=== PATIENT | female | born 1985 | race Caucasian/White ===

== ENCOUNTER 2025-03-04 19:54 | Emergency (ER) | payer BC, SELFPAY ==
--- OUTSIDE RECORDS SUMMARY | 2025-03-04 18:00 | XMS_ITS | Encounter Summary ---
Author Organization [facility] Address [address] [place] [address]. [place] [address] Care Team Providers Care Continuous Improvement Coach Name Role Phone Corinna Rodriges MD Primary Care Provider Corinna Rodriges MD Unavailable [phone] Arelis Vega PA-C Unavailable [phone] Corinna Rodriges MD Unavailable [phone] Loly Calderon PA-C Unavailable [phone] Galo Gill MD Unavailable Unavailab Robe Marshall MD Unavailable Loly Calderon PA-C Unavailable [phone] Reason for Visit * Reason Comments UTI 39 yo F presents wit h the following complaint unable to empty bladder lower back pain onset 3 hrs ago feels like a possible kidney stone also complaining of nausea and sweating Encounter Details Date Type Department Care Team (Late st Contact Info) Description 03/04/2025 6:00 PM CDT Office Visit [facility] [address] [place] [address] Beatrice Pinon, PORCELAIN ENAMEL LABORER ELECTROTYPER [address] [place] [address] Dysuria (Primary Dx) Social History Tobacco Use [...] re latives? Twice a week 06/27/2024 Attends Orthodoxy Services Not on file 06/27 Active Member of Clubs or Organizations Not on f ile 06/27/2024 Attends Club or Organization Meetings Not on karey e 06/27/2024 Marital Status Not on file 06/27/2024 PHQ-2 Answer Date Recorded PHQ-2 Score 0 06/27/2024 [facility] - Occupational Stress Questionnaire Answer Date Recorded [...] exercise at this level? 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 Recommend follow up in [facility]. documented in this encounter Progress Notes * [...] Negative Ketones Urine Negative Negative mg/dL Specific [place] Urine 1.010 1.003 - 1.035 Blood Urine [...] provider if symptoms persist. Beatrice Pinon APRN [facility] Tori Milligan is a 39 year old [...] Description 03/21/2025 12:15 PM CDT Virtual Visit [facility] [address] 4th [place] [address] Loly Calderon PA-C [address] [place] [address] [phone] 05/21/2025 12:00 PM CDT Virtual Visit [facility] [address] [address] Corinna Rodriges MD [address] [place], [place] [address] Delmi Garcia [address] [id number] documented as of this encounter Procedures Procedure [...] Urine Culture not indicated us Capri Bergman MARKETING DESIGNER LAB - URINE ORDERABLES Final Res ult LABORATORY [facility] [address] [facility] (no room number, 1st floor of clinic) [place] [address], [facility] * (ABNORMAL) UA with Microscopic reflex to [...] 03/04/2025 5:58 PM CDT [facility] Specific [place] Urine 1.010 1.003 - 1.035 03/04/2025 5:58 [...] 03/04/2025 5:53 PM CDT us Capri Bergman MARKETING DESIGNER LAB - URINE ORDERABLES Final Res ult LABORATORY [facility] [address] [facility] (no room number, 1st floor of clinic) [place] [address] documented in this encounter Visit Diagnoses Diagnosis Dysuria- Primary documented in this encounter Additional Health Concerns Assessment Noted Time PHQ-9 Depression Total Score: 1 06/27/20 24 9:36 AM TREASURY ASSISTANT documented as of this encounter Care Teams Continuous Improvement Coach Relationship Specialty Start Date End Date Corinna Rodriges MD [address] [place] [address] PCP - General 03/04/08 Corinna Rodriges MD [address] [place] [address] Assigned PCP 12/05/13 Arelis Vega PA-C [address] [place] [address] Physician Leaf Fat Scraper 07/02/24 [place] [address] [place] [address] Family Medicine 07/02/24 Loly Calderon PA-C [address] [place] [address] Physician Leaf Fat Scraper Gastroenterology 07/02/24 Galo Gill MD Assigned Heart and Vascular Provider 07/30/24 Robe Calero MD [address] [place], [place] [address] Assigned Dermatology Provider 10/28/24 Loly Calderon PA-C [address] [place], [place] [address] Assigned Gastroenterology Provider 10/28/24 documented as of this encounter
[2025-03-04 20:44] VITALS: BP 131/81; PULSE 70; RESP 16; TEMP 36.7; O2SAT 98; BMI 22.9
--- OUTSIDE RECORDS SUMMARY | 2025-03-04 21:52 | XMS_ITS | Encounter Summary ---
Author Organization [facility] Address [address] [place] [address]. [place] [address] Care Team Providers Care Director Of Enterprise Applications Name Role Phone Corinna Rodriges MD Primary Care Provider Corinna Rodriges MD Unavailable [phone] Galo Gill MD Unavailable Unavailab Arelis Carrasco PA-C Unavailable [phone] Corinna Rodriges MD Unavailable [phone] Loly Calderon PA-C Unavailable [phone] Galo Gill MD Unavailable Unavailab Robe Marshall MD Unavailable Loly Calderon PA-C Unavailable [phone] Encounter Details Date Type Department Care Team (Late st Contact Info) Description 12/07/2024 [facility] [address] [address] Yasmin [place] Social History Tobacco Use Types Packs/Day Years [...] re latives? Twice a week 06/27/2024 Attends Hoahaoism Services Not on file 06/27 Active Member of Clubs or Organizations Not on f ile 06/27/2024 Attends Club or Organization Meetings Not on karey e 06/27/2024 Marital Status Not on file 06/27/2024 PHQ-2 Answer Date Recorded PHQ-2 Score 0 06/27/2024 [facility] - Occupational Stress Questionnaire Answer Date Recorded [...] exercise at this level? 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 [employer] Not on file Not on karey e Not on file documented as of this encounter Plan of Treatment Upcoming Encounters Date Type Department Care Team (Late st Contact Info) Description 03/21/2025 12:15 PM CDT Virtual Visit [facility] [address] [place] [address] Loly Calderon PA-C [address] [place], [place] [phone] 05/21/2025 12:00 PM CDT Virtual Visit [facility] [address] [place] [address] Corinna Rodriges MD [address] [place], [place] 436342 Delmi Garcia GC [address] [place] [address] [id number] documented as of this encounter Visit Diagnoses Not on filedocumented in this encounter Additional Health Concerns Assessment Noted Time PHQ-9 Depression Total Score: 1 06/27/20 24 9:36 AM MESSAGE CLERK documented as of this encounter Care Teams Director Of Enterprise Applications Relationship Specialty Start Date End Date Corinna Rodriges MD [address] [place] [address] [id number] PCP - General 03/04/08 Corinna Rodriges MD [address] [place] [address] 000642 Assigned PCP 12/05/13 Galo Gill MD [address] [place] [address] 92476 Cardiovascular Disease 04/19/24 12/19/24 Arelis Vega PA-C [address] [place] [address] 85727 Physician Paper Core Machine Operator 07/02/24 Corinna Rodriges MD [address] [place] [address] 80297 Family Medicine 07/02/24 Loly Calderon PA-C [address] [place] [address]152 Physician Paper Core Machine Operator Gastroenterology 07/02/24 Galo Gill MD Assigned Heart and Vascular Provider 07/30/24 Robe Calero MD [address] [place], [place] 332005 Assigned Dermatology Provider 10/28/24 Loly Calderon PA-C [address] [place] [address] Assigned Gastroenterology Provider 10/28/24 documented as of this encounter
--- OUTSIDE RECORDS SUMMARY | 2025-03-04 21:52 | XMS_ITS | Encounter Summary ---
Author Organization [place] Address [address] [place] [address]. [place] [address] Care Team Providers Care Felt Checker Name Role Phone Corinna Rodriges MD Primary Care Provider Corinna Rodriges MD Unavailable [phone] Galo Gill MD Unavailable Unavailab Arelis Carrasco PA-C Unavailable [phone] Corinna Rodriges MD Unavailable [phone] Loly Calderon PA-C Unavailable [phone] Galo Gill MD Unavailable Unavailab Robe Marshall MD Unavailable Loly Calderon PA-C Unavailable [phone] Encounter Details Date Type Department Care Team (Late st Contact Info) Description 11/08/2024 [facility] [address] 4[address] [place] [address] Aishwarya Eli, RN Social History Tobacco Use Types Packs/Day Years Used Date Smoking Tobacco: Never Smokeless Tobacco: Never Alcohol Use Standard Drinks/Week Comments Not Currently 0 (1 standard drink = 0.6 oz pur e alcohol) minimal alcohol use. Social Connection and Isolation Panel [NHANES] A nswer Date Recorded Frequency of Communication with Friends and Fami ly Not on file 06/27/2024 How often do you get together with friends or re latives? Twice a week 06/27/2024 Attends [employer] Not on file 06/27 Active Member of Clubs or Organizations Not on f ile 06/27/2024 Attends Club or Organization Meetings Not on karey e 06/27/2024 Marital Status Not on file 06/27/2024 PHQ-2 Answer Date Recorded PHQ-2 Score 0 06/27/2024 [facility] - Occupational Stress Questionnaire Answer Date [...] exercise at this level? 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 Not on karey e Not on file documented as of this encounter Plan of Treatment Upcoming Encounters Date Type Department Care Team (Late st Contact Info) Description 03/21/2025 12:15 PM CDT Virtual Visit [facility] [address] [place] [address] Loly Calderon PA-C [address] [place], [place] [phone] 05/21/2025 12:00 PM CDT Virtual Visit [facility] [address] [place] [address] Corinna Rodriges MD [address] [place], [place] [phone] Delmi Garcia GC [address] [place] [address] [id number] documented as of this encounter Visit Diagnoses Not on filedocumented in this encounter Additional Health Concerns Assessment Noted Time PHQ-9 Depression Total Score: 1 06/27/20 9:36 AM STRANDING MACHINE OPERATOR HELPER documented as of this encounter Care Teams Felt Checker Relationship Specialty Start Date End Date Corinna Rodriges MD [address] [place] [address] 21226 PCP - General 03/04/08 Corinna Rodriges MD [address] [place] [address] 00644 Assigned PCP 12/05/13 Galo Gill MD [address] [place] [address] 70338 Cardiovascular Disease 04/19/24 12/19/24 Arelis Vega PA-C [address] [place] [address] 66270 Physician Destination Coordinator 07/02/24 Corinna Rodriges MD [address] [place] [address] 98061 Family Medicine 07/02/24 Loly Calderon PA-C [address] [place] [address] Physician Destination Coordinator Gastroenterology 07/02/24 Galo Gill MD Assigned Heart and Vascular Provider 07/30/24 Robe Calero MD 500 [place] [address] Assigned Dermatology Provider 10/28/24 Loly Calderon PA-C [address] [place] [address]01 Assigned Gastroenterology Provider 10/28/24 documented as of this encounter
--- OUTSIDE RECORDS SUMMARY | 2025-03-04 21:52 | XMS_ITS | Encounter Summary ---
Author Organization [facility] Address [address] [place] [address]. [place] [address] Care Team Providers Care Rafter Cutting Machine Operator Name Role Phone Corinna Rodriges MD Primary Care Provider Corinna Rodriges MD Unavailable [phone] Galo Gill MD Unavailable Unavailab Arelis Carrasco PA-C Unavailable [phone] Corinna Rodriges MD Unavailable [phone] Loly Calderon PA-C Unavailable [phone] Galo Gill MD Unavailable Unavailab Robe Marshall MD Unavailable Loly Calderon PA-C Unavailable [phone] Encounter Details Date Type Department Care Team (Late st Contact Info) Description 10/29/2024 [facility] Advice [facility] [address] 4[address] [place] [address] Navarro Reynolds Social History Tobacco Use Types Packs/Day Years [...] re latives? Twice a week 06/27/2024 Attends Gnosticism Services Not on file 06/27 Active Member of Clubs or Organizations Not on f ile 06/27/2024 Attends Club or Organization Meetings Not on karey e 06/27/2024 Marital Status Not on file 06/27/2024 PHQ-2 Answer Date Recorded PHQ-2 Score 0 06/27/2024 [facility] - Occupational Stress Questionnaire Answer Date Recorded [...] exercise at this level? 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 Not on karey e Not on file documented as of this encounter Plan of Treatment Upcoming Encounters Date Type Department Care Team (Late st Contact Info) Description 03/21/2025 12:15 PM CDT Virtual Visit [facility] [address] [place] [address] Loly Calderon PA-C [address] [place], [place] [phone] 05/21/2025 12:00 PM CDT Virtual Visit [facility] [address] [place] [address] Corinna Rodriges MD [address] [place], [place] [phone] Delmi Garcia GC [address] [place] [address] [phone] documented as of this encounter Visit Diagnoses Not on filedocumented in this encounter Additional Health Concerns Assessment Noted Time PHQ-9 Depression Total Score: 1 06/27/20 9:36 AM VEHICLE SAFETY INSPECTOR documented as of this encounter Care Teams Rafter Cutting Machine Operator Relationship Specialty Start Date End Date Corinna Rodriges MD [address] [place] [address]1015 PCP - General 03/04/08 Corinna Rodriges MD [address] [place] [address] 42547 Assigned PCP 12/05/13 Galo Gill MD [address] [place] [address] 15144 Cardiovascular Disease 04/19/24 12/19/24 Arelis Vega PA-C [address] [place] [address] 87658 Physician Club Steward 07/02/24 Corinna Rodriges MD [address] [place] [address] 57981 Family Medicine 07/02/24 Loly Calderon PA-C [address] [place] [address]116 Physician Club Steward Gastroenterology 07/02/24 Galo Gill MD Assigned Heart and Vascular Provider 07/30/24 Robe Calero MD [address] [place] [address] Assigned Dermatology Provider 10/28/24 Loly Calderon PA-C [address] [place] [address] Assigned Gastroenterology Provider 10/28/24 documented as of this encounter
--- OUTSIDE RECORDS SUMMARY | 2025-03-04 21:52 | XMS_ITS | Encounter Summary ---
Author Organization [facility] Address [address] [place] [address]. [place] [address] Care Team Providers Care District Sales Coordinator Name Role Phone Corinna Rodriges MD Primary Care Provider Corinna Rodriges MD Unavailable Arelis Vega PA-C Unavailable [phone] Corinna Rodriges MD Unavailable [phone] Loly Calderon PA-C Unavailable [phone] Galo Gill MD Unavailable Unavailab Robe Marshall MD Unavailable Loly Calderon PA-C Unavailable [phone] Reason for Visit * Reason Onset Date Comments Refill Request 02/06/2025 Encounter Details Date Type Department Care Team (Late st Contact Info) Description 02/06/2025 [facility] Refill [address] [address] Corinna Rodriges MD [address] [place] [address] Refill Request Social History Tobacco Use Types Packs/Day Years [...] re latives? Twice a week 06/27/2024 Attends [employer] Services Not on file 06/27 Active Member of Clubs or Organizations Not on f ile 06/27/2024 Attends Club or Organization Meetings Not on karey e 06/27/2024 Marital Status Not on file 06/27/2024 PHQ-2 Answer Date Recorded PHQ-2 Score 0 06/27/2024 [facility] - Occupational Stress Questionnaire Answer Date Recorded [...] exercise at this level? 40 min 06/27/2024 [place] Depression Scale Answer Date Recorded Last EPDS [...] Answer Date Recorded Do you have housing? 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 * Telephone Encounter - Corinna Rodriges MD - 02/06/2025 4:49 PM CDT PDMP Review Value Time User State PDMP site checked Yes 02/06/2025 4:48 PM Corinna Rodriges MD No suspicious activity noted. Pt compliant with controlled substance agreement. --Corinna Rodriges MD Pt due for px 06/27/2025 or just after. Please assist pt in making appt(s) for the above. Future Appointments 02/06/2025 - 08/05/2025 Date Visit Type Length Department Provider 03/21/2025 12:15 PM RETURN GI 45 min [facility] Loly Calderon PA-C Location Instructions: Due to road construction on , travel times to this location may be longer than usual. Please plan for extra travel time and check the [facility] project website for delay, closure, and detour information. The [facility] ([facility]) is in a dense urban area with multiple transportation and parking options. You may wish to review options for gis software engineer service and self-parking in more detail on the [facility]???s website at [email or web address] [email or web address]. 05/21/2025 12:00 PM NEW ONCOLOGY 75 min [facility] Delmi Garcia GC Location Instructions: Due to road construction on , travel times to this location may be longer than usual. Please plan for extra travel time and check the [facility] project website for delay, closure, and detour information. The [facility] ([facility]) is in a dense urban area with multiple transportation and parking options. You may wish to review options for gis software engineer service and self-parking in more detail on the [facility]s website at [email or web address]. This appointment is in a hospital-based location. Before your visit, you may want to check with your insurance company for coverage and referral options, including cost differences between services provided indifferent clinic settings. For more information visit this link on the [employer] Website: [email or web address] documented in this encounter Plan of Treatment Upcoming Encounters Date Type Department Care Team ([facility] st Contact Info) Description 03/21/2025 12:15 PM CDT Virtual Visit [facility] [address] [place] [address] Loly Calderon PA-C [address] [place] [address] 05/21/2025 12:00 PM CDT Virtual Visit [facility] [address] [place] [phone] Corinna Rodriges MD [address] [place] [address] 022502 Delmi Garcia GC [address] [place], [place] [phone] documented as of this encounter Visit Diagnoses Diagnosis Controlled substance agreement signed-06/27/2024-ok for adderall XR 30mg #25 /month &Adderall xr 20mg #10/month Encounter for long-term (current) use of other medications Attention deficit hyperactivity disorder, 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/27/2024 documented in this encounter Additional Health Concerns Assessment Noted Time PHQ-9 Depression Total Score: 1 06/27/20 24 9:36 AM ELECTRICAL INSTRUMENT REPAIRER documented as of this encounter Care Teams District Sales Coordinator Relationship Specialty Start Date End Date Corinna Rodriges MD [address] [place] [address] PCP - General 03/04/08 Corinna Rodriges MD [address] [place] [address]22 Assigned PCP 12/05/13 Arelis Vega PA-C [address] [place] [address]013 Physician Enterprise Manager 07/02/24 Corinna Rodriges MD [address] [place] [address] 27523 Family Medicine 07/02/24 Loly Calderon PA-C [address] [place] [address]179 Physician Enterprise Manager Gastroenterology 07/02/24 Galo Gill MD Assigned Heart and Vascular Provider 07/30/24 Robe Calero MD [address] [place], [place] 766775 Assigned Dermatology Provider 10/28/24 Loly Calderon PA-C [address] [place], [place] 423245 Assigned Gastroenterology Provider 10/28/24 documented as of this encounter
--- OUTSIDE RECORDS SUMMARY | 2025-03-04 21:52 | XMS_ITS | Encounter Summary ---
Author Organization [place] Address [address] [place] [address] Care Team Providers Care Soil Conservation Aide Name Role Phone Corinna Rodriges MD Primary Care Provider Corinna Rodriges MD Unavailable [phone] Corinna Rodriges MD Unavailable [phone] Galo Ross MD Unavailable [phone] Sohail Olmstead MD Unavailable [phone] Galo Gill MD Unavailable Unavailab Arelis Carrasco PA-C Unavailable [phone] Corinna Rodriges MD Unavailable [phone] Loly Calderon PA-C Unavailable [phone] Galo Gill MD Unavailable Unavailab Robe Marshall MD Unavailable Robe Calero MD Unavailable Loly Calderon PA-C Unavailable [phone] Encounter Details Date Type Department Care Team (Late st Contact Info) Description 10/17/2014 [facility] Medical Advice [address] [address] Corinna Rodriges MD [address] [place] [address] Attention deficit disorder with hyperactivity(314.01 ) (Primary Dx) Social History Tobacco Use Types Packs/Day Years Used Date Smoking Tobacco: Never Smokeless Tobacco: Never Alcohol Use Standard Drinks/Week Comments Yes 0 (1 standard drink = 0.6 oz pure alcohol) Occasional wine or beer, no hard liquor Comments No Sex and Gender Information Value Date Recorded Sex Assigned at Female 08/08/2019 10:05 AM CHRONOGRAPH OPERATOR Legal Sex Female 3:14 AM CHRONOGRAPH OPERATOR Gender Identity Female 08/08/2019 10:05 AM CHRONOGRAPH OPERATOR Sexual Orientation Straight 08/08/2019 10 :05 AM CHRONOGRAPH OPERATOR Occupation Industry Job Start Date Job End Date [employer] Not on file Not on file Not on file documented as of this encounter Miscellaneous Notes * Telephone Encounter - Denice Patterson - 10/17/2014 1:04 PM CDT Walked RX Adderall (2) to electrician front for hot die picker. Informed pt. Denice Patterson TC * Telephone Encounter - Corinna Rodriges MD - 10/17/2014 12:59 PM CDT [facility]'s in basket /file box. * Telephone Encounter - Cyndy Hodge RN - 10/17/2014 11:25 AM CDT Routing refill request to provider for review/approval because: Drug not on the [facility] refill protocol Cyndy Hodge RN [place] Triage documented in this encounter Plan of Treatment Upcoming Encounters Date Type Department Care Team (Late st Contact Info) Description 03/21/2025 12:15 PM CDT Virtual Visit [facility] [address] 4th [place] [phone] Loly Calderon PA-C [address] [place] [address]255 05/21/2025 12:00 PM CDT Virtual Visit [facility] [address] [phone] Corinna Rodriges MD [address] [place] [address] Delmi Garcia GC [address] [place] [address] 193075 documented as of this encounter Visit Diagnoses Diagnosis Attention deficit disorder with hyperactivity(314.01)- Primary Attention deficit disorder with hyperactivity documented in this encounter Additional Health Concerns Infection Onset Date Last Indicated Resolved Time Rule Out COVID-19 08/28/2021 08/28/2021 08/29/2021 5:48 PM CHRONOGRAPH OPERATOR Rule Out COVID-19 09/30/2021 09/30/2021 09/30/2021 10:11 PM CHRONOGRAPH OPERATOR Rule Out COVID-19 03/30/2024 03/30/2024 03/30/2024 7:56 PM CDT documented as of this encounter Care Teams Soil Conservation Aide Relationship Specialty Start Date End Date Corinna Rodriges MD [address] [place] [address] 19696 PCP - General 03/04/08 Corinna Rodriges MD [address] [place] [address] 94862 PCP - Assigned PCP 12/05/13 10/10/18 Corinna Rodriges MD [address] [place] [address] 112762 Assigned PCP 12/05/13 Galo Ross MD [address] [address] Assigned OBGYN Provider 08/30/21 Sohail Olmstead MD [address] [place] [address] Assigned Surgical Provider 01/22/23 07/29/24 Galo Gill MD [address] [place] [address] Cardiovascular Disease 04/19/24 12/19/24 Arelis Vega PA-C [address] [place] [address] Physician Assistant Printer Floor Covering 07/02/24 Corinna Rodriges MD [address] [place] [address] 389242 Family Medicine 07/02/24 Loly Calderon PA-C [address] [place] [address] Physician Assistant Printer Floor Covering Gastroenterology 07/02/24 Galo Gill MD Assigned Heart and Vascular Provider 07/30/24 Robe Calero MD [address] [place] [address] Assigned Surgical Provider 09/30/24 10/27/24 Robe Calero MD [address] [place] [address] Assigned Dermatology Provider 10/28/24 Loly Calderon PA-C [address] [place], [place] 6[address]45 Assigned Gastroenterology Provider 10/28/24 documented as of this encounter
--- OUTSIDE RECORDS SUMMARY | 2025-03-04 21:52 | XMS_ITS | Encounter Summary ---
Author Organization [facility] Address [address] [place] [address]. [place] [address] Care Team Providers Care Global Implementation Manager Name Role Phone Corinna Rodriges MD Primary Care Provider Corinna Rodriges MD Unavailable [phone] Arelis Vega PA-C Unavailable [phone] Corinna Rodriges MD Unavailable [phone] Loly Calderon PA-C Unavailable [phone] Galo Gill MD Unavailable Unavailab Robe Marshall MD Unavailable Loly Calderon PA-C Unavailable [phone] Encounter Details Date Type Department Care Team (Latest Contact Info) Description 03/04/2025 Travel Social History Tobacco Use Types Packs/Day Years [...] re latives? Twice a week 06/27/2024 Attends Holiness Services Not on file 06/27 Active Member of Clubs or Organizations Not on f ile 06/27/2024 Attends Club or Organization Meetings Not on karey e 06/27/2024 Marital Status Not on file 06/27/2024 PHQ-2 Answer Date Recorded PHQ-2 Score 0 06/27/2024 [facility] - Occupational Stress Questionnaire Answer Date Recorded [...] exercise at this level? 40 min 06/27/2024 [place] Depression Scale Answer Date Recorded Last EPDS [...] Answer Date Recorded Do you have housing? 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 Not on karey e Not on file documented as of this encounter Plan of Treatment Upcoming Encounters Date Type Department Care Team (Late st Contact Info) Description 03/21/2025 12:15 PM CDT Virtual Visit [facility] [address] [place] [address] Loly Calderon PA-C [address] [place] [address] [phone] 05/21/2025 12:00 PM CDT Virtual Visit [facility] [address] [place] [phone] Corinna Rodriges MD [address] [place] [address] 269512 Delmi Garcia GC [address] [place] [address] [phone] documented as of this encounter Visit Diagnoses Not on filedocumented in this encounter Additional Health Concerns Assessment Noted Time PHQ-9 Depression Total Score: 1 06/27/20 24 9:36 AM SOLUTIONS DEVELOPER documented as of this encounter Care Teams Global Implementation Manager Relationship Specialty Start Date End Date Corinna Rodriges MD [address] [place] [address] 97420 PCP - General 03/04/08 [place] [address] [place] [address] 11289 Assigned PCP 12/05/13 Arelis Vega PA-C [address] [place] [address]222 Physician Boy'S Adviser 07/02/24 Corinna Rodriges MD [address] [place] [address] 97239 Family Medicine 07/02/24 Loly Calderon PA-C [address] [place] [address] 24717 Physician Boy'S Adviser Gastroenterology 07/02/24 Galo Gill MD Assigned Heart and Vascular Provider 07/30/24 Robe Calero MD [address] [place] [address] Assigned Dermatology Provider 10/28/24 Loly Calderon PA-C [address] [place] [address] Assigned Gastroenterology Provider 10/28/24 documented as of this encounter
--- OUTSIDE RECORDS SUMMARY | 2025-03-04 21:52 | XMS_ITS | Encounter Summary ---
Author Organization [facility] Address [address] [place] [address] Care Team Providers Care Reimbursement Representative Name Role Phone Corinna Rodriges MD Primary Care Provider Corinna Rodriges MD Unavailable [phone] Corinna Rodriges MD Unavailable [phone] Galo Ross MD Unavailable [phone] Sohail Olmstead MD Unavailable [phone] Galo Gill MD Unavailable Unavailab Arelis Carrasco PA-C Unavailable [phone] Corinna Rodriges MD Unavailable [phone] Loly Calderon PA-C Unavailable [phone] Galo Gill MD Unavailable Unavailab Robe Marshall MD Unavailable Robe Calero MD Unavailable Loly Calderon PA-C Unavailable [phone] Encounter Details Date Type Department Care Team (Late st Contact Info) Description 10/05/[address] [address] Kan Evans Social History Tobacco Use Types Packs/Day Years Used Date Smoking Tobacco: Never Smokeless Tobacco: Never Alcohol Use Standard Drinks/Week Comments Yes 0 (1 standard drink = 0.6 oz pure alcohol) occasionally in college - every other week Comments No Sex and Gender Information Value Date Recorded Sex Assigned at Female 08/08/2019 10:05 AM SVP Legal Sex Female 3:14 AM SVP Gender Identity Female 08/08/2019 10:05 AM SVP Sexual Orientation Straight 08/08/2019 10 :05 AM SVP Occupation Industry Job Start Date Job End Date [facility] [employer] [facility] Not on file Not on file Not on file documented as of this encounter Plan of Treatment Upcoming Encounters Date Type Department Care Team (Late st Contact Info) Description 03/21/2025 12:15 PM CDT Virtual Visit [facility] [address] [place] [phone] Loly Calderon PA-C [address] [place], [place] [phone] 05/21/2025 12:00 PM CDT Virtual Visit [facility] [address] [place] [phone] Corinna Rodriges MD [address] [place], [place] 909542 Delmi Garcia [address] [phone] documented as of this encounter Visit Diagnoses Not on filedocumented in this encounter Additional Health Concerns Infection Onset Date Last Indicated Resolved Time Rule Out COVID-19 08/28/2021 08/28/2021 08/29/2021 5:48 PM SVP Rule Out COVID-19 09/30/2021 09/30/2021 09/30/2021 10:11 PM SVP Rule Out COVID-19 03/30/2024 03/30/2024 03/30/2024 7:56 PM CDT documented as of this encounter Care Teams Reimbursement Representative Relationship Specialty Start Date End Date Corinna Rodriges MD [address] [place] [address] PCP - General 03/04/08 Corinna Rodriges MD [address] [place] [address] 463652 PCP - Assigned PCP 12/05/13 10/10/18 Corinna Rodriges MD [address] [place] [address] 992952 Assigned PCP 12/05/13 Galo Ross MD [address] [place] [address] Assigned OBGYN Provider 08/30/21 Sohail Olmstead MD [address] [place] [address] Assigned Surgical Provider 01/22/23 07/29/24 Galo Gill MD [address] [place] [address] Cardiovascular Disease 04/19/24 12/19/24 Arelis Vega PA-C [address] [place] [address] 46907 Physician Manager Community 07/02/24 Corinna Rodriges MD [address] [place] [address] 26658 Family Medicine 07/02/24 Loly Calderon PA-C [address] [place] [address] Physician Manager Community Gastroenterology 07/02/24 Galo Gill MD Assigned Heart and Vascular Provider 07/30/24 Robe Calero MD [address] [place], [place] 449505 Assigned Surgical Provider 09/30/24 10/27/24 Robe Calero MD [address] [place], [place] 184305 Assigned Dermatology Provider 10/28/24 Loly Calderon PA-C [address] [place], [place] 812955 Assigned Gastroenterology Provider 10/28/24 documented as of this encounter
--- OUTSIDE RECORDS SUMMARY | 2025-03-04 21:52 | XMS_ITS | Encounter Summary ---
Author Organization [facility] Address [address] [place] [address] Care Team Providers Care Broadcast Technician Name Role Phone Corinna Rodriges MD Primary Care Provider Corinna Rodriges MD Unavailable [phone] Corinna Rodriges MD Unavailable [phone] Galo Ross MD Unavailable [phone] Sohail Olmstead MD Unavailable [phone] Galo Gill MD Unavailable Unavailab Arelis Carrasco PA-C Unavailable [phone] Corinna Rodriges MD Unavailable [phone] Loly Calderon PA-C Unavailable [phone] Galo Gill MD Unavailable Unavailab Robe Marshall MD Unavailable Robe Calero MD Unavailable Loly Calderon PA-C Unavailable [phone] Encounter Details Date Type Department Care Team (Late st Contact Info) Description 08/18/2018 [facility] Medical Advice [address] [address] Keira Malone, RN Social History Tobacco Use Types Packs/Day Years Used Date Smoking Tobacco: Never Smokeless Tobacco: Never Alcohol Use Standard Drinks/Week Comments Yes 0 (1 standard drink = 0.6 oz pur e alcohol) 0-1 drinks Q4M PHQ-2 Answer Date Recorded PHQ-2 Score 3 08/15/2018 Comments No Sex and Gender Information Value Date Recorded Sex Assigned at Female 08/08/2019 10:05 AM TEA ROOM MANAGER Legal Sex Female 3:14 AM TEA ROOM MANAGER Gender Identity Female 08/08/2019 10:05 AM TEA ROOM MANAGER Sexual Orientation Straight 08/08/2019 10 :05 AM TEA ROOM MANAGER 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 Not on karey e Not on file documented as of this encounter Plan of Treatment Upcoming Encounters Date Type Department Care Team (Late st Contact Info) Description 03/21/2025 12:15 PM CDT Virtual Visit [facility] [address] [place] [phone] Loly Calderon PA-C [address] [place], [place] 171505 05/21/2025 12:00 PM CDT Virtual Visit [facility] [address] [place] [phone] Corinna Rodriges MD [address] [place], [place] 985832 Delmi Garcia GC [address] [place] [address] [phone] documented as of this encounter Visit Diagnoses Not on filedocumented in this encounter Additional Health Concerns Infection Onset Date Last Indicated Resolved Time Rule Out COVID-19 08/28/2021 08/28/2021 08/29/2021 5:48 PM TEA ROOM MANAGER Rule Out COVID-19 09/30/2021 09/30/2021 09/30/2021 10:11 PM TEA ROOM MANAGER Rule Out COVID-19 03/30/2024 03/30/2024 03/30/2024 7:56 PM CDT Assessment Noted Time PHQ-9 Depression Total Score: 6 07/17/20 18 2:20 PM TEA ROOM MANAGER documented as of this encounter Care Teams Broadcast Technician Relationship Specialty Start Date End Date Corinna Rodriges MD [address] [place] [address] 143402 PCP - General 03/04/08 Corinna Rodriges MD [address] [place] [address] 578292 PCP - Assigned PCP 12/05/13 10/10/18 Corinna Rodriges MD [address] [place] [address] [phone] Assigned PCP 12/05/13 Galo Ross MD [address] 155704 Assigned OBGYN Provider 08/30/21 Sohail Olmstead MD [address] [place] [address] Assigned Surgical Provider 01/22/23 07/29/24 Galo Gill MD [address] [place] [address] Cardiovascular Disease 04/19/24 12/19/24 Arelis Vega PA-C [address] [place] [address] 39142 Physician Machine Oiler 07/02/24 [place] [address] [place] [address] 91620 Family Medicine 07/02/24 Loly Calderon PA-C [address] [place] [address] Physician Machine Oiler Gastroenterology 07/02/24 Galo Gill MD Assigned Heart and Vascular Provider 07/30/24 Robe Calero MD [address] [place], [place] 658275 Assigned Surgical Provider 09/30/24 10/27/24 Robe Calero MD [address] [place] [address] Assigned Dermatology Provider 10/28/24 Loly Calderon PA-C [address] [place], [place] 969485 Assigned Gastroenterology Provider 10/28/24 documented as of this encounter
--- OUTSIDE RECORDS SUMMARY | 2025-03-04 21:52 | XMS_ITS | Encounter Summary ---
Author Organization [facility] Address [address] [place] [address]. [place] [address] Care Team Providers Care Wool Hat Hydraulicker Name Role Phone Corinna Rodriges MD Primary Care Provider Corinna Rodriges MD Unavailable [phone] Galo Gill MD Unavailable Unavailab Arelis Carrasco PA-C Unavailable [phone] Corinna Rodriges MD Unavailable [phone] Loly Calderon PA-C Unavailable [phone] Galo Gill MD Unavailable Unavailab oRbe Marshall MD Unavailable Robe Calero MD Unavailable Loly Calderon PA-C Unavailable [phone] Encounter Details Date Type Department Care Team (Late st Contact Info) Description 10/09/2024 [facility] [address] [place] [address] [facility] Social History Tobacco Use Types Packs/Day Years [...] re latives? Twice a week 06/27/2024 Attends Restoration Services Not on file 06/27 Active Member of Clubs or Organizations Not on f ile 06/27/2024 Attends Club or Organization Meetings Not on karey e 06/27/2024 Marital Status Not on file 06/27/2024 PHQ-2 Answer Date Recorded PHQ-2 Score 0 06/27/2024 [facility] - Occupational Stress [...] exercise at this level? 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 Not on karey e Not on file documented as of this encounter Plan of Treatment Upcoming Encounters Date Type Department Care Team (Late st Contact Info) Description 03/21/2025 12:15 PM CDT Virtual Visit [facility] [address] [place] [address] Loly Calderon PA-C [address] [place], [place] [phone] 05/21/2025 12:00 PM CDT Virtual Visit [facility] [address] [place] [phone] Corinna Rodriges MD [address] [place] [address] Delmi Garcia GC [address] [place] [address] [phone] documented as of this encounter Visit Diagnoses Not on filedocumented in this encounter Additional Health Concerns Assessment Noted Time PHQ-9 Depression Total Score: 1 06/27/20 24 9:36 AM VALET SERVICE ATTENDANT documented as of this encounter Care Teams Wool Hat Hydraulicker Relationship Specialty Start Date End Date Corinna Rodriges MD [address] [place] [address]348 PCP - General 03/04/08 Corinna Rodriges MD [address] [place] [address] 34827 Assigned PCP 12/05/13 Galo Gill MD [address] [place] [address] 34572 Cardiovascular Disease 04/19/24 12/19/24 Arelis Vega PA-C [address] [place] [address]32 Physician Intellectual Property Counsel 07/02/24 Corinna Rodriges MD [address] [place] [address] 73584 Family Medicine 07/02/24 Loly Calderon PA-C [address] [place] [address] 36147 Physician Intellectual Property Counsel Gastroenterology 07/02/24 Galo Gill MD Assigned Heart and Vascular Provider 07/30/24 Robe Calero MD [address] [place] [address] Assigned Surgical Provider 09/30/24 10/27/24 Robe Calero MD [address] [place] [address] Assigned Dermatology Provider 10/28/24 Loly Calderon PA-C [address] [place], [place] 115665 Assigned Gastroenterology Provider 10/28/24 documented as of this encounter
--- OUTSIDE RECORDS SUMMARY | 2025-03-04 21:52 | XMS_ITS | Encounter Summary ---
Author Organization [facility] Address [address] [place] [address]. [place] [address] Care Team Providers Care Pinmaker Name Role Phone Corinna Rodriges MD Primary Care Provider Corinna Rodriges MD Unavailable [phone] Galo Gill MD Unavailable Unavailab Arelis Carrasco PA-C Unavailable [phone] Corinna Rodriges MD Unavailable [phone] Loly Calderon PA-C Unavailable [phone] Galo Gill MD Unavailable Unavailab Robe Marshall MD Unavailable Loly Calderon PA-C Unavailable [phone] Encounter Details Date Type Department Care Team (Late st Contact Info) Description 11/09/2024 [facility] [address] 4[address] [place] [address] Esperanza Nelson LPN Social History Tobacco Use Types Packs/Day Years [...] re latives? Twice a week 06/27/2024 Attends Church Services Not on file 06/27 Active Member of Clubs or Organizations Not on f ile 06/27/2024 Attends Club or Organization Meetings Not on karey e 06/27/2024 Marital Status Not on file 06/27/2024 PHQ-2 Answer Date Recorded PHQ-2 Score 0 06/27/2024 [facility] - Occupational Stress Questionnaire Answer [...] exercise at this level? 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 Not on karey e Not on file documented as of this encounter Plan of Treatment Upcoming Encounters Date Type Department Care Team (Late st Contact Info) Description 03/21/2025 12:15 PM CDT Virtual Visit [facility] [address] [place] [address] Loly Calderon PA-C [address] [place], [place] [phone] 05/21/2025 12:00 PM CDT Virtual Visit [facility] [address] [place] [address] Corinna Rodriges MD [address] [place], [place] [phone] Delmi Garcia GC [address] [place] [address] [phone] documented as of this encounter Visit Diagnoses Not on filedocumented in this encounter Additional Health Concerns Assessment Noted Time PHQ-9 Depression Total Score: 1 06/27/20 9:36 AM YARN SPOOLER documented as of this encounter Care Teams Pinmaker Relationship Specialty Start Date End Date Corinna Rodriges MD [address] [place] [address] PCP - General 03/04/08 Corinna Rodriges MD [address] [place] [address] 54560 Assigned PCP 12/05/13 Galo Gill MD [address] [place] [address] 14914 Cardiovascular Disease 04/19/24 12/19/24 Arelis Vega PA-C [address] [place] [address]41 Physician Staff Certified Nurse Midwife 07/02/24 Corinna Rodriges MD [address] [place] [address]3349 Family Medicine 07/02/24 Loly Calderon PA-C [address] [place] [address] 88678 Physician Staff Certified Nurse Midwife Gastroenterology 07/02/24 Galo Gill MD Assigned Heart and Vascular Provider 07/30/24 Robe Calero MD [address] [place] [address] Assigned Dermatology Provider 10/28/24 Loly Calderon PA-C [address] [place] [address] Assigned Gastroenterology Provider 10/28/24 documented as of this encounter
--- OUTSIDE RECORDS SUMMARY | 2025-03-04 21:52 | XMS_ITS | Encounter Summary ---
Author Organization [facility] Address [address] [place] [address] Care Team Providers Care Cardiology Tech Name Role Phone Corinna Rodriges MD Primary Care Provider Corinna Rodriges MD Unavailable [phone] Galo Ross MD Unavailable [phone] Sohail Olmstead MD Unavailable [phone] Galo Gill MD Unavailable Unavailab Arelis Carrasco PA-C Unavailable [phone] Corinna Rodriges MD Unavailable [phone] Loly Calderon PA-C Unavailable [phone] Galo Gill MD Unavailable Unavailab Robe Marshall MD Unavailable Robe Calero MD Unavailable Loly Calderon PA-C Unavailable [phone] Encounter Details Date Type Department Care Team (Late st Contact Info) Description 10/05/2019 [facility] Medical Advice [address] [address] Rajan Cabrera, RN Social History Tobacco Use Types Packs/Day Years Used Date Smoking Tobacco: Never Smokeless Tobacco: Never Alcohol Use Standard Drinks/Week Comments Yes 0 (1 standard drink = 0.6 oz pur e alcohol) 0-1 drinks Q4M PHQ-2 Answer Date Recorded PHQ-2 Score 1 08/13/2019 Comments No Sex and Gender Information Value Date Recorded Sex Assigned at Female 08/08/2019 10:05 AM STATISTICS TEACHER Legal Sex Female 3:14 AM STATISTICS TEACHER Gender Identity Female 08/08/2019 10:05 AM STATISTICS TEACHER Sexual Orientation Straight 08/08/2019 10 :05 AM STATISTICS TEACHER 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[employer] 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 Not on karey e Not on file documented as of this encounter Plan of Treatment Upcoming Encounters Date Type Department Care Team (Late st Contact Info) Description 03/21/2025 12:15 PM CDT Virtual Visit [facility] [address] 4th [place] [phone] Loly Calderon PA-C [address] [place], [place] 314575 05/21/2025 12:00 PM CDT Virtual Visit [facility] [address] [place] [address] Corinna Rodriges MD [address] [place], [place] 5[address] Delmi Garcia [address] [phone] documented as of this encounter Visit Diagnoses Not on filedocumented in this encounter Additional Health Concerns Infection Onset Date Last Indicated Resolved Time Rule Out COVID-19 08/28/2021 08/28/2021 08/29/2021 5:48 PM STATISTICS TEACHER Rule Out COVID-19 09/30/2021 09/30/2021 09/30/2021 10:11 PM STATISTICS TEACHER Rule Out COVID-19 03/30/2024 03/30/2024 03/30/2024 7:56 PM CDT Assessment Noted Time PHQ-9 Depression Total Score: 2 08/13/19 20 9:28 AM STATISTICS TEACHER documented as of this encounter Care Teams Cardiology Tech Relationship Specialty Start Date End Date Corinna Rodriges MD [address] [place] [address] PCP - General 03/04/08 Corinna Rodriges MD [address] [place] [address] 99918 Assigned PCP 12/05/13 Galo Ross MD [address] [place] [address] Assigned OBGYN Provider 08/30/21 Sohail Olmstead MD [address] [place] [address] Assigned Surgical Provider 01/22/23 07/29/24 Galo Gill MD [address] [place] [address] Cardiovascular Disease 04/19/24 12/19/24 Arelis Vega PA-C [address] [address] Physician Medicare Sales Representative 07/02/24 Corinna Rodriges MD [address] [place] [address] Family Medicine 07/02/24 Loly Calderon PA-C [address] [place] [address] Physician Medicare Sales Representative Gastroenterology 07/02/24 Galo Gill MD Assigned Heart and Vascular Provider 07/30/24 Robe Calero MD [address] [place] [address] Assigned Surgical Provider 09/30/24 10/27/24 Robe Calero MD [address] [place], [place] 482965 Assigned Dermatology Provider 10/28/24 Loly Calderon PA-C [address] [place], [place] 738965 Assigned Gastroenterology Provider 10/28/24 documented as of this encounter
--- OUTSIDE RECORDS SUMMARY | 2025-03-04 21:52 | XMS_ITS | Patient Health Record ---
Author Organization [facility] Address [address] [place] [address] Care Team Providers Care Kerrick Kleaner Operator Name Role Phone Zahira Corinna Primary Care Provider CITLALY Scott Unavailable [phone] Ed Andujar Unavailable Unavailable Allergies Allergen (clinical drug ingredient) Drug/Non Drug Allergy documented on EMR Reaction Allergy Type Onset Date Status codeine Codeine Sulfate Unknown Drug Allergy A ctive minocycline Minocycline HCl Unknown Drug Allergy Active Reason For Referral No Information Medications Medication SIG (Take, Route, Frequency, Duration) Notes Start Date End Date Status ibuprofen Active Fluticasone Propionate 50 MCG/ACT Suspension Nasal; Duration: 30 Ac tive Amphetamine-Dextroamphet ER 10 MG Capsule Extended Release 24 Hour (Schedule II Drug) TAKE 1 C PO DAILY IN ADDITION TO 30MG FOR BREAKTHROUGH SYMPTOMS. Oral; Duration: 30 Active Social History Tobacco Use: Social History Observation Description Date Details (start date - stop date) Never Smoker NA - NA Social History Alcohol Use: Social Info Question Answer Notes Recreational drugs Recreational Drug Use: No Alcohol Screen Did you have a drink containing alcohol in the past year? Yes How often did you have 6 or more drinks on one occasion in the past year? Never (0 point) How many drinks did you have on a typical day when you were drinking in the past year? 3 or 4 drinks (1 point) How often did you have a drink containing alcohol in the past year? 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 Problems Problem Type SNOMED Code ICD Code Onset Dates Problem Status W/U Status Risk Notes Problem Nasal congestion (56822338) Nasal congestion (R09.81) Active confirmed Problem Deviated nasal septum (015360173) Nasal septal deviation (J34.2) Active confirmed Problem Ear fullness, bilateral (H93.8X3) Active confirmed Plan Of Treatment No Information Insurance Providers Payer Name Payer Address Payer Phone Subscriber Number Group Number Insured Name Patient Relationship to Insured Coverage Start Date Coverage End Date [facility] [address] [address] [place] [address] [id number] Chel Griggs Self - patient is the insured Medical (General) History Surgical History Surgery Date(Month/Year)
--- OUTSIDE RECORDS SUMMARY | 2025-03-04 21:52 | XMS_ITS | Clinical Summary ---
Author Organization [facility] Address [address] [place] [address] Care Team Providers Care Crew Member Name Role Phone Shyam Noriega MD Primary Care Provider Shyam Noriega MD Unavailable [phone] Arelis Vega PA-C Unavailable [phone] Shyam Noriega MD Unavailable [phone] Loly Calderon PA-C Unavailable [phone] Galo Gill MD Unavailable Unavailab Robe Marshall MD Unavailable Loly Calderon PA-C Unavailable Allergies Active Allergy Reactions Criticality Noted Date Comments Minocycline Hives 03/15/2012 Lupus type symptoms Morphine And Codeine Nausea and Vomiting 2007 Medications Fluticasone Propionate (FLONASE ALLERGY RELIEF NA) Active amphetamine-dextr oamphetamine (ADDERALL XR) 30 MG 24 hr capsuleIndication s:Controlled substance agreement signed,Attention deficit hyperactivity disorder, predominantly inattentive type Take 1 capsule (30 mg) by mouth daily. 30 capsule 5 Active amphetamine-dextr oamphetamine (ADDERALL XR) 30 MG 24 hr capsuleIndication s:Controlled substance agreement signed,Attention deficit hyperactivity disorder, predominantly inattentive type Take 1 capsule (30 mg) by mouth daily. 30 capsule 5 02/07/20 25 Discontinu ed(Reorder (No AVS)) Active Problems Problem Noted Date Diagnosed Date Palpitations 07/20/2024 Precordial pain 07/20/2024 RUQ abdominal pain- still pr esent on and off every day- achey feeling - not necessarily related to food - feels like it is moving through- started after son born 12/07/2023 06/27/2024 Elevated liver function tests 12/09/2021 Gestational hypertension, third trimester 2021 Vaccine refused by patient- COVID-19 , not comfortable doing this during - will continue to discuss 08/07/2021 Edema of both legs- trace bi laterally to mid-upper pretibial areas bilaterally 11/14/2017 Renal calculi 08/06/2017 Type O blood, Rh negative 06/15/2017 Enlarged lymph node - left p osterior neck =1 node = 1.5cm x 1cm 10/15/2016 Generalized anxiety disorder 03/02/2016 Controlled substance agreeme nt signed-06/27/2024-off adderall since +preg test 04/08/2021- prev.ok for adderall XR 30mg #25 /month &Adderall xr 20mg #10/month 01/31/2015 Overview (08/13/2019): Checked [employer] website - no unusal use. ---ANNETTE August 13, 2019 Major depressive disorder, r ecurrent episode, in partial remission 11/08/2013 CARDIOVASCULAR SCREENING; LDL GOAL LESS THAN 160 06/07/2010 Chronic diarrhea-? related to IBS vs. lactose in tolerance 05/26/2010 IBS (irritable bowel syndrome) 05/26/2010 Chronic maxillary sinusitis 05/13/2010 Family history of ischemic heart disease 007 Overview (05/08/2015): Problem list name updated by automated process. Provider to review and confirm Problem list name updated by automated process. Provider to review Anxiety 03/03/2007 Overview (05/08/2015): Problem list name updated by automated process. Provider to review Attention deficit hyperactiv ity disorder, 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/27/2024 03/03/2007 Overview (06/27/2024): Patient is followed by SHYAM NORIEGA for ongoing prescription of stimulants. All refills should be approved by this provider, or covering partner. Medication(s): Medication(s): adderall xr 30mg during the week and 20mg xr on the weekends Maximum quantity per month: #30 of each Clinic visit frequency required: Q 6 months . Controlled substance agreement on file: Yes Date(s): 06/27/2024- Neuropsych evaluation for ADD completed: No and Yes, completed long ago , on file but diagnosis not confirmed Last [facility] website verification: done on 06/27/2024 [email or web address] Other acne 03/03/2007 Resolved Problems Problem Noted Date Diagnosed Date Resolved Date Encounter for triage in patient 10/04/2021 04/10/2024 Multigravida of advanced mat ernal age in third trimester 08/07/2021 06/27/2024 Acute pain of right shoulder 07/07/2018 11/20/2018 Normal vaginal delivery 11/21/201710/2023 Indication for care in labor or delivery 11/18/2017 04/10/2024 PIH ( induced hyper tension), third trimester-- treated w/labetalol -now off meds - was induced at 37 weeks EGA - pt had been on 81mg asa since 2nd trimester with 2nd 11/11/2017 06/27/2024 Supervision of other normal 06/15/2017 04/10/2024 ASCUS of cervix with negative high risk HPV 10/15/2016 06/05/2021 Overview (01/28/2022): 10/15/16: ASCUS pap, Neg HR HPV result. Plan cotest in 3 years. 06/09/17: NIL pap, Neg HR HPV result. Plan cotest in 1 year. 12/30/17: NIL pap, Neg HR HPV result. Plan cotest in 3 years 05/29/21 NIL Pap, Neg HR HPV Plan routine screening. 01/21/22 NIL pap, neg HPV IBS (irritable bowel syndrome) 11/07/2009 12/25/2009 Major Depressive Disorder, S purnima Episode, Moderate-Deactivated 07/01/2008 11/08/2013 Encounter for other general counseling or advice on contraception 03/03/2007 04/10/2024 Overview (06/09/2015): Diagnosis updated by automated process. Provider to review and confirm. Encounters Date Type Department Care Team Description 03/04/2025 6:00 PM CDT Office Visit [facility] [place] [address] [place] [phone] Beatrice Pinon APRN CNP Dysuria (Primary Dx) 03/04/2025 Travel 02/06/2025 MyC Refill [facility] [address] [address] Shyam Noriega MD Refill Request 12/07/2024 MyC Medical Advice [facility] Virtual Care [address] [place] [address] [facility] from Last 3 Months Immunizations Immunization Administration Dates Next Due HEPA 03/04/2008,03/03/2007 HIB (PRP-T) 09/03/1988 HPV 01/09/2008,08/04/2007,03/03/2007 HepB 07/04/1995,11/08/1994,09/23/1994 Historical DTP/aP 11/02/1991, 8,03/05/1987,01/01,1986 Influenza (IIV3) PF 08/04/2007 Influenza Vaccine >6 months,quad, PF ,08/13/2019,05/17/2018,04/25 Influenza Vaccine, 6+MO IM (QUADRIVALENT W/PRESERVATIVES) 05/12/2021 MMR (MMRII) 04/02/1997,02/04/1988 Mantoux Tuberculin Skin Test 01/26/1999,11/01/18 92,09/03/1987 Meningococcal ACWY (Menactra ) 03/22/2005 OPV, trivalent, live 11/02/1991,03/03/19 88,01/01/1987,11/01 Rhogam 09/09/2017 TD,PF 7+ (Tenivac) 04/02/1997 TDAP (Adacel,Boostrix) 10/30/2021 TDAP Vaccine (Adacel) 10/28/2017,03/03/2007 Family History Medical History Relation Comments Autism Spectrum Disorder Daughter Anxiety Disorder Father Cerebrovascular Disease Father Mild str chris back in 2014 or 2015. He had no damage from this stroke. Depression Father Diabetes Father Hyperlipidemia Father Hypertension Father Lipids Father Myocardial Infarction Father Pacemaker Father Alzheimer Disease Maternal Grandfather Breast Cancer Maternal Grandmother Anxiety Disorder Mother Cancer Mother Hyperlipidemia Mother Other Cancer Mother Non-Hodgkin Lymp tracey Thyroid Disease Mother Thyroid was stefania augustin Alcohol/Drug Paternal Grandfather Hypertension Paternal Grandfather Lipids Paternal Grandfather Hypertension Paternal Grandmother No Known Problems Sister 1 Anxiety Disorder Sister 2 Psychotic Disorder Sister 2 Relation Status Comments Daughter Alive Father Maternal Grandfather Alive Maternal Grandmother Alive Mother Alive Paternal Grandfather Alive Paternal Grandmother Sister 1 Alive Sister 2 Alive Social History Tobacco Use Types Packs/Day Years Used Date Smoking Tobacco: Never Smokeless Tobacco: Never Tobacco Cessation:Counseling Given: Not Answered Alcohol Use Standard Drinks/Week Comments Yes 0 (1 standard drink = 0.6 oz pur e alcohol) socially Social Connection and Isolation Panel [NHANES] A nswer Date Recorded Frequency of Communication with Friends and Fami ly Not on file 06/27/2024 How often do you get together with friends or re latives? Twice a week 06/27/2024 Attends Mu-Ism Services Not on file 06/27 Active Member of Clubs or Organizations Not on f ile 06/27/2024 Attends Club or Organization Meetings Not on karey e 06/27/2024 Marital Status Not on file 06/27/2024 PHQ-2 Answer Date Recorded PHQ-2 Score 0 06/27/2024 [facility] [place] of Occupat ional Health - Occupational Stress [...] exercise at this level? 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[employer] Not on file Not on karey e Not on file Last Filed Vital Signs Vital Sign Reading [...] Mass Index 25.69 03/04/2025 6:20 PM CDT Plan of Treatment Upcoming Encounters Date Type Department Care Team (Late st Contact Info) Description 03/21/2025 12:15 PM CDT Virtual Visit [facility] [address] [place] [address] Loly Calderon PA-C [address] [place], [place] [phone] 05/21/2025 12:00 PM CDT Virtual Visit [facility] [address] [place] [address] Shyam Noriega MD [address] [place], [place] [address] Delmi Garcia GC [address] [place] [phone] Health Maintenance Due Date Last Done Comments ANNUAL REVIEW OF HM ORDERS 12/08/2024 12/09/2023, PHQ-9 12/25/2024 06/27/2024, 09/0 10/2023, 12/09/2023, Additional history exists INFLUENZA VACCINE (#1) 2025 , 05/26/2020, 08/13/2019, Additional history exists COVID-19 VACCINE ( season) 2025 Postponed from 04/08/2024 (Patient Declined) YEARLY PREVENTIVE VISIT 06/27/2025 06/27/20, 04/11/2020, 01/04/2019, Additional history exists HPV TEST 01/21/2027 01/21/2022, 05/09, 05/29/2021, Additional history exists PAP 01/21/2027 01/21/2022, 05/09, 05/29/2021, Additional history exists DIABETES SCREENING 06/27/2027 06/27/2024, 0 03/30/2024, 03/24/2023, Additional history exists ADVANCE CARE PLANNING 06/27/2029 06/27/2024 DTAP/TDAP/TD VACCINE (9 - Td or Tdap) 10/31/2031 10/30/2021, 10/28/2017, 03/03/2007, Additional history exists ZOSTER VACCINE (1 of 2) 2036 HEPATITIS B VACCINE Completed 07/04/1995, 11/08/1994, 09/23/1994 MENINGITIS VACCINE Completed 03/22/2005 HPV VACCINE Completed 01/09/2008, 07/09, 03/03/2007 DEPRESSION ACTION PLAN Completed , 12/30/2017, 12/06/2016, Additional history exists HIV SCREENING Completed 05/29/2021, 06/09/2017 HEPATITIS C SCREENING Discontinued PNEUMOCOCCAL VACCINE: PEDIATRICS (0 to 5 YEARS) AND AT-RISK PATIENTS (6 to 49 YEARS) Aged Out No longer eligible based on patient's age to complete this topic Procedures Procedure Name Priority Date/Time Associated Diagnosis Comments UA MICROSCOPIC WITH REFLEX TO CULTURE Routine 03/04/2025 5:53 PM CDT Dysuria ROUTINE UA WITH MICROSCOPIC REFLEX TO CULTURE Routine 03/04/2025 5:53 PM CDT Dysuria COMPREHENSIVE METABOLIC PANEL Routine 06/27/2024 5:11 PM JD EDWARDS CARDIOVASCULAR SCREENING; LDL GOAL LESS THAN 160 GYNECOLOGIC CYTOLOGY Routine 01/21/2022 1:18 PM CDT Routine follow-up Screening for malignant neoplasm of cervix HPV HIGH RISK TYPES DNA CERVICAL Routine 01/21/2022 1:18 PM CDT Routine follow-up Screening for malignant neoplasm of cervix HIV ANTIGEN ANTIBODY COMBO Routine 05/29/2021 3:39 PM CDT care in first trimester from Last 3 Months or Most Recently Relevant to Health Maintenance Results * (ABNORMAL) UA Microscopic with Reflex [...] Urine Culture not indicated us Capri Bergman NP LAB - URINE ORDERABLES Final Res ult LABORATORY [facility] [place] [facility] [address] [facility] (no room number, 1st floor of clinic) [place] [address], [facility] * (ABNORMAL) UA with Microscopic reflex [...] 03/04/2025 5:58 PM CDT LV LABORATORY Specific [place] Urine 1.010 1.003 - 1.035 03/04/2025 5:58 [...] 03/04/2025 5:53 PM CDT us Capri Bergman [employer] LAB - URINE ORDERABLES Final Res ult LABORATORY [facility] [address] [facility] (no room number, 1st floor of clinic) [place] [address], [facility] * Comprehensive metabolic panel (BMP + Alb, Alk Phos, ALT, AST, Total. Bili, TP) (06/27/2024 5:11 PM JD EDWARDS) Sodium 138 135 - 145 mmol/L 06/28/2024 7:08 PM JD EDWARDS [facility] Potassium 3.7 3.4 - 5.3 mmol/L 06/28/2024 7:08 PM JD EDWARDS [facility] Carbon Dioxide (CO2) 28 22 - 29 mmol/L 06/28/2024 7:08 PM JD EDWARDS [facility] Anion Gap 9 7 - 15 mmol/L 06/28/2024 7:08 PM JD EDWARDS [facility] Urea Nitrogen 12.4 6.0 - 20.0 mg/dL 06/28/2024 7:08 PM JD EDWARDS [facility] Creatinine 0.73 0.51 - 0.95 mg/dL 06/28/2024 7:08 PM JD EDWARDS [facility] GFR Estimate >90 >60 mL/min/1.7 3m2 06/28/2024 7:08 PM JD EDWARDS [facility] Comment:eGFR calculated 2020 CKD-EPI equation. Calcium 9.4 8.8 - 10.4 mg/dL 06/28/2024 7:08 PM JD EDWARDS [facility] Comment:Reference intervals for this test were updated on 02/21/2024 to reflect our healthy population more accurately. There may be differences in the flagging of prior results with similar values performed with this method. Those prior results can be interpreted in the context of the updated reference intervals. Chloride 101 98 - 107 mmol/L 06/28/2024 7:08 PM JD EDWARDS [facility] Glucose 82 70 - 99 mg/dL 06/28/2024 7:08 PM JD EDWARDS [facility] Alkaline Phosphatase 66 40 - 150 U/L 06/28/2024 7:08 PM JD EDWARDS [facility] AST 28 0 - 45 U/L 06/28/2024 7:08 PM JD EDWARDS [facility] ALT 36 0 - 50 U/L 06/28/2024 7:08 PM JD EDWARDS [facility] Protein Total 7.1 6.4 - 8.3 g/dL 06/28/2024 7:08 PM JD EDWARDS [facility] Albumin 4.3 3.5 - 5.2 g/dL 06/28/2024 7:08 PM JD EDWARDS [facility] Bilirubin Total 0.4 <=1.2 mg/dL 06/28/2024 7:08 PM JD EDWARDS [facility] Patient Fasting > 8hrs? Unknown 06/28/2024 7:08 PM JD EDWARDS [facility] Blood BLOOD SPECIMEN / Unknown Venipuncture / Unknown 06/27/2024 5:11 PM JD EDWARDS 06/27/2024 5:11 PM JD EDWARDS us Shyam Noriega MD LAB - BLOOD ORDERABLES Final Result [facility] LAB[facility]ATORY [facility] [place] [facility] [address] [facility], [address] [address] * Pap screen with HPV - recommended age 30 - 65 years (01/21/2022 1:18 PM CDT) Interpretation Negative for Intraepithelial Lesion or Malignancy (NILM) 01/25/2022 2:47 PM CDT [facility] at 1447 CDT Comment Papanicolaou Test Limitations: Cervical cytology is a screening test with limited sensitivity, and regular screening is critical for cancer prevention. Pap tests are primarily effective for the diagnosis/prevent ion of squamous cell carcinoma, not adenocarcinoma or other cancers. 01/25/2022 2:47 PM CDT [facility] Specimen Adequacy Satisfactory for evaluation, endocervical/tolliver sformation zone component present 01/25/2022 2:47 PM CDT [facility] Clinical Information post- 01/25/2022 2:47 PM CDT [facility] LMP/Menopause Date 03/20/2021 01/25/2022 2:47 PM CDT [facility] Reflex Testing Yes regardless of result 01/25/2022 2:47 PM CDT [facility] Previous Abnormal? No 01/25/2022 2:47 PM CDT [facility] Performing Labs The technical component of this testing was completed at [facility] 01/25/2022 2:47 PM CDT [facility] Brushing CERVIX UTERI STRUCTURE / Unknown Non-blood Collection / Unknown 01/21/2022 1:18 PM CDT 01/21/2022 1:46 PM CDT us Shyam Noriega MD LAB - BEAKER AP Final R esult [facility] [address] [facility] [address], [address] [place] [address], [facility] [phone] * HPV High Risk Types DNA Cervical (01/21/2022 1:18 PM CDT) Other HR HPV Negative Negative 01/27/2022 4:56 PM CDT [facility] HPV16 DNA Negative Negative 01/27/2022 4:56 PM CDT [facility] HPV18 DNA Negative Negative 01/27/2022 4:56 PM CDT [facility] FINAL DIAGNOSIS This patient's sample is negative for HPV DNA. This test was developed and its performance characteristics determined by the [facility], Molecular Diagnostics Laboratory. It has not been cleared or approved by the FDA. The laboratory is regulated under CLIA as qualified to perform high-complexity testing. This test is used for clinical purposes. It should not be regarded as investigational or for research. METHODOLOGY: The Kristin Johann 4800 system uses automated extraction, simultaneous amplification of HPV (L1 region) and beta-globin, followed by real time detection of fluorescent labeled HPV and beta globin using specific oligonucleotide probes. The test specifically identified types HPV 16 DNA and HPV 18 DNA while concurrently detecting the rest of the high risk types (31, 33, 35, 39, 45, 51, 52, 56, 58, 59, 66 or 68). COMMENTS: This test is not intended for use as a screening device for woman under age 30 with normal cervical cytology. Results should be correlated with cytologic and histologic findings. Close clinical followup is recommended. 01/27/2022 4:56 PM CDT [facility] Brushing CERVIX UTERI STRUCTURE / Unknown Non-blood Collection / Unknown 01/21/2022 1:18 PM CDT 01/26/2022 9:26 AM CDT us Shyam Noriega MD LAB - BLOOD ORDERABLES Final Result [facility] [address] [facility] [address] [facility], [address] [place] [address], [facility] [phone] * HIV Antigen Antibody Combo (05/29/2021 3:39 PM CDT) HIV Antigen Antibody Combo Nonreactive Nonreactive 05/30/2021 3:34 PM CDT [facility] Comment:HIV-1 p24 Ag & HIV-1 /HIV-2 Ab Not Detected Blood STRUCTURE OF RIGHT UPPER LIMB / Unknown Venipuncture / Unknown 05/29/2021 3:39 PM CDT 05/29/2021 3:40 PM CDT Shyam Noriega MD LAB - BLOOD ORDERABLES Final Result [facility] SPECIALTY [facility] Special[facility] Core Lab [address] [facility], [address] [place] [address], [facility] [phone] from Last 3 Months or Most Recently Relevant to Health Maintenance [place] For more information, please contact: [phone] * Full Code (Latest Code Status on File) Date Activated Date Inactivated Comments 12/06/2021 5:12 AM 12/08/2021 4:48 PM All basic and advanced life-sustaining interventions are performed as appropriate Question Answer Comments Code status determined by: Discussion with clintone nt/ legal decision maker * Full Code Date Activated Date Inactivated Comments 12/04/2021 3:31 PM 12/06/2021 4:50 AM All basic and advanced life-sustaining interventions are performed as appropriate Question Answer Comments Code status determined by: Discussion with clintone nt/ legal decision maker Care Teams Crew Member Relationship Specialty Start Date End Date Shyam Noriega MD [address] [place] [id number] PCP - General 03/04/08 Shyam Noriega MD [address] [place] [phone] Assigned PCP 12/05/13 Arelis Vega PA-C [address] [place] [address] Physician Voice Over Announcer 07/02/24 Shyam Noriega MD [address] [place] [phone] Family Medicine 07/02/24 Loly Calderon PA-C [address] [place] [address] Physician Voice Over Announcer Gastroenterology 07/02/24 Galo Gill MD Assigned Heart and Vascular Provider 07/30/24 Robe Calero MD [address] [place] [address] Assigned Dermatology Provider 10/28/24 Loly Calderon PA-C [address] [place] [address] Assigned Gastroenterology Provider 10/28/24
--- OUTSIDE RECORDS SUMMARY | 2025-03-04 21:52 | XMS_ITS | Encounter Summary ---
Author Organization [place] Address [address] [place] [address] Care Team Providers Care Paper Spooler Name Role Phone Corinna Rodriges MD Primary Care Provider Corinna Rodriges MD Unavailable [phone] Galo Ross MD Unavailable [phone] Sohail Olmstead MD Unavailable [phone] Galo Gill MD Unavailable Unavailab Arelis Carrasco PA-C Unavailable [phone] Corinna Rodriges MD Unavailable [phone] Loly Calderon PA-C Unavailable [phone] Galo Gill MD Unavailable Unavailab Robe Marshall MD Unavailable Robe Calero MD Unavailable Loly Calderon PA-C Unavailable [phone] Reason for Visit * Reason Onset Date Comments Ochart Communication 04/06/2022 Encounter Details Date Type Department Care Team (Late st Contact Info) Description 04/06/2022 [facility] [address] [address] [place] [address] [place] [address] [id number] MyChart Communication Social History Tobacco Use Types Packs/Day Years Used Date Smoking Tobacco: Never Smokeless Tobacco: Never Alcohol Use Standard Drinks/Week Comments Not Currently 0 (1 standard drink = 0.6 oz pur e alcohol) minimal alcohol use. PHQ-2 Answer Date Recorded PHQ-2 Score 0 01/21/2022 [place] Depression Scale Answer Date Recorded Last EPDS Total Score Not on file 12/06/2021 The thought of harming myself has occurred to me . 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 [employer] Not on file Not on karey e Not on file documented as of this encounter Plan of Treatment Upcoming Encounters Date Type Department Care Team (Late st Contact Info) Description 03/21/2025 12:15 PM CDT Virtual Visit [facility] [address] [place] [phone] Loly Calderon PA-C [address] [place] [address] [phone] 05/21/2025 12:00 PM CDT Virtual Visit [facility] [address] [place] [phone] Corinna Rodriges MD [address] [place] [address] 164182 Delmi Garcia [address] [id number] documented as of this encounter Visit Diagnoses Not on filedocumented in this encounter Additional Health Concerns Infection Onset Date Last Indicated Resolved Time Rule Out COVID-19 03/30/2024 03/30/2024 03/30/2024 7:56 PM CDT Assessment Noted Time PHQ-9 Depression Total Score: 3 01/22/20 22 1:32 PM CDT documented as of this encounter Care Teams Paper Spooler Relationship Specialty Start Date End Date Corinna Rodriges MD [address] [place] [address] [id number] PCP - General 03/04/08 Corinna Rodriges MD [address] [place] [address] [id number] Assigned PCP 12/05/13 Galo Ross MD [address] [place] [address] 897824 Assigned OBGYN Provider 08/30/21 Sohail Olmstead MD [address] [place] [address] Assigned Surgical Provider 01/22/23 07/29/24 Galo Gill MD [address] [place] [address] Cardiovascular Disease 04/19/24 12/19/24 Arelis Vega PA-C [address] [place] [address] Physician Quality Systems Manager 07/02/24 Corinna Rodriges MD [address] [place] [address] 32549 Family Medicine 07/02/24 Loly Calderon PA-C [address] [place] [address] Physician Quality Systems Manager Gastroenterology 07/02/24 Galo Gill MD Assigned Heart and Vascular Provider 07/30/24 Robe Calero MD 500 [place] [address] Assigned Surgical Provider 09/30/24 10/27/24 Robe Calero MD [address] [place], [place] 619495 Assigned Dermatology Provider 10/28/24 Loly Calderon PA-C [address] [place] [address] Assigned Gastroenterology Provider 10/28/24 documented as of this encounter
--- OUTSIDE RECORDS SUMMARY | 2025-03-04 21:52 | XMS_ITS | Encounter Summary ---
Author Organization [place] Address [address] [place] [address] Care Team Providers Care Bank Examiner Name Role Phone Corinna Rodriges MD Primary Care Provider Corinna Rodriges MD Unavailable [phone] Corinna Rodriges MD Unavailable [phone] Galo Ross MD Unavailable [phone] Sohail Olmstead MD Unavailable [phone] Galo Gill MD Unavailable Unavailab Arelis Carrasco PA-C Unavailable [phone] Corinna Rodriges MD Unavailable [phone] Loly Calderon PA-C Unavailable [phone] Galo Gill MD Unavailable Unavailab Robe Marshall MD Unavailable Robe Calero MD Unavailable Loly Calderon PA-C Unavailable [phone] Encounter Details Date Type Department Care Team (Late st Contact Info) Description 08/17/2018 [facility] [address] [address] Mahi Russo, KESHAWN Social History Tobacco Use Types Packs/Day Years Used Date Smoking Tobacco: Never Smokeless Tobacco: Never Alcohol Use Standard Drinks/Week Comments Yes 0 (1 standard drink = 0.6 oz pur e alcohol) 0-1 drinks Q4M PHQ-2 Answer Date Recorded PHQ-2 Score 3 08/15/2018 Comments No Sex and Gender Information Value Date Recorded Sex Assigned at Female 08/08/2019 10:05 AM FOOT ORTHOPEDIST Legal Sex Female 3:14 AM FOOT ORTHOPEDIST Gender Identity Female 08/08/2019 10:05 AM FOOT ORTHOPEDIST Sexual Orientation Straight 08/08/2019 10 :05 AM FOOT ORTHOPEDIST Occupation Industry 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 Start 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 Job 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 [employer] 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 Not on karey e Not on file documented as of this encounter Plan of Treatment Upcoming Encounters Date Type Department Care Team (Late st Contact Info) Description 03/21/2025 12:15 PM CDT Virtual Visit [facility] [address] [place] [phone] Loly Calderon PA-C [address] [place], [place] 518675 05/21/2025 12:00 PM CDT Virtual Visit [facility] [address] [place] [phone] Corinna Rodriges MD [address] [place], [place] 100112 Delmi Garcia GC [address] [place] [address] [phone] documented as of this encounter Visit Diagnoses Not on filedocumented in this encounter Additional Health Concerns Infection Onset Date Last Indicated Resolved Time Rule Out COVID-19 08/28/2021 08/28/2021 08/29/2021 5:48 PM FOOT ORTHOPEDIST Rule Out COVID-19 09/30/2021 09/30/2021 09/30/2021 10:11 PM FOOT ORTHOPEDIST Rule Out COVID-19 03/30/2024 03/30/2024 03/30/2024 7:56 PM CDT Assessment Noted Time PHQ-9 Depression Total Score: 6 07/17/20 18 2:20 PM FOOT ORTHOPEDIST documented as of this encounter Care Teams Bank Examiner Relationship Specialty Start Date End Date Corinna Rodriges MD [address] [place] [address] [id number] PCP - General 03/04/08 Corinna Rodriges MD [address] [place] [address] [id number] PCP - Assigned PCP 12/05/13 10/10/18 Corinna Rodriges MD [address] [place] [address] [phone] Assigned PCP 12/05/13 Galo Ross MD [address] [phone] Assigned OBGYN Provider 08/30/21 Sohail Olmstead MD [address] [place] [address] Assigned Surgical Provider 01/22/23 07/29/24 Galo Gill MD [address] [place] [address] Cardiovascular Disease 04/19/24 12/19/24 Arelis Vega PA-C [address] [place] [address] Physician Prototype Machine Operator 07/02/24 [place] [address] [place] [address] 20627 Family Medicine 07/02/24 Loly Calderon PA-C [address] [place] [address] Physician Prototype Machine Operator Gastroenterology 07/02/24 Galo Gill MD Assigned Heart and Vascular Provider 07/30/24 Robe Calero MD [address] [place], [place] 939685 Assigned Surgical Provider 09/30/24 10/27/24 Robe Calero MD [address] [place] [address] Assigned Dermatology Provider 10/28/24 Loly Calderon PA-C [address] [place], [place] 907205 Assigned Gastroenterology Provider 10/28/24 documented as of this encounter
--- OUTSIDE RECORDS SUMMARY | 2025-03-04 21:53 | XMS_ITS | Encounter Summary ---
Author Organization [place] Address [address] [place] [address] Care Team Providers Care Global Climate Change Analyst Name Role Phone Corinna Rodriges MD Primary Care Provider Corinna Rodriges MD Unavailable [phone] Galo Ross MD Unavailable [phone] Sohail Olmstead MD Unavailable [phone] Galo Gill MD Unavailable Unavailab Arelis Carrasco PA-C Unavailable [phone] Corinna Rodriges MD Unavailable [phone] Loly Calderon PA-C Unavailable [phone] Galo Gill MD Unavailable Unavailab Robe Marshall MD Unavailable Robe Calero MD Unavailable Loly Calderon PA-C Unavailable [phone] Encounter Details Date Type Department Care Team (Late st Contact Info) Description 10/02/2021 [facility] [address] [address] Corinna Rodriges MD [address] [place] [address] [phone] Social History Tobacco Use Types Packs/Day Years Used Date Smoking Tobacco: Never Smokeless Tobacco: Never Alcohol Use Standard Drinks/Week Comments Not Currently 0 (1 standard drink = 0.6 oz pure alcohol) minimal alcohol use prior to PHQ-2 Answer Date Recorded PHQ-2 Score 1 05/29/2021 Comments Yes Sex and Gender Information Value Date Recorded Sex Assigned at Female 08/08/2019 10:05 AM MANUFACTURING MANAGER Legal Sex Female 3:14 AM MANUFACTURING MANAGER Gender Identity Female 08/08/2019 10:05 AM MANUFACTURING MANAGER Sexual Orientation Straight 08/08/2019 10 :05 AM MANUFACTURING MANAGER Occupation Industry 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 No / Unsure 10/02/2021 9:59 AM MANUFACTURING MANAGER documented as of this encounter Plan of Treatment Upcoming Encounters Date Type Department Care Team (Late st Contact Info) Description 03/21/2025 12:15 PM CDT Virtual Visit [facility] [address] [place] [address] Loly Calderon PA-C [address] [place], [place] 748395 05/21/2025 12:00 PM CDT Virtual Visit [facility] [address] [place] [phone] Corinna Rodriges MD [address] [place], [place] 947462 Delmi Garcia GC [address] [place] [address] [phone] documented as of this encounter Visit Diagnoses Not on filedocumented in this encounter Additional Health Concerns Infection Onset Date Last Indicated Resolved Time Rule Out COVID-19 03/30/2024 03/30/2024 03/30/2024 7:56 PM CDT Assessment Noted Time PHQ-9 Depression Total Score: 3 03/04/20 21 7:02 AM CDT documented as of this encounter Care Teams Global Climate Change Analyst Relationship Specialty Start Date End Date Corinna Rodriges MD [address] [place] [address] PCP - General 03/04/08 Corinna Rodriges MD [address] [place] [address] 715[address] Assigned PCP 12/05/13 Galo Ross MD [address] [place] [address] 802194 Assigned OBGYN Provider 08/30/21 Sohail Olmstead MD [address] [place] [address] Assigned Surgical Provider 01/22/23 07/29/24 Galo Gill MD [address] [place] [address] Cardiovascular Disease 04/19/24 12/19/24 Arelis Vega PA-C [address] [place] [address]114 Physician Experience Planning Strategist 07/02/24 Corinna Rodriges MD [address] [place] [address] 12369 Family Medicine 07/02/24 Loly Calderon PA-C [address] [place] [address] Physician Experience Planning Strategist Gastroenterology 07/02/24 Galo Gill MD Assigned Heart and Vascular Provider 07/30/24 Robe Calero MD 500 [place] [address] Assigned Surgical Provider 09/30/24 10/27/24 Robe Calero MD [address] [place] [address] Assigned Dermatology Provider 10/28/24 Loly Calderon PA-C [address] [place] [address] Assigned Gastroenterology Provider 10/28/24 documented as of this encounter
--- OUTSIDE RECORDS SUMMARY | 2025-03-04 21:53 | XMS_ITS | Encounter Summary ---
Author Organization [facility] Address [address] [place] [address]000 Care Team Providers Care Awning Hanger Supervisor Name Role Phone Corinna Rodriges MD Primary Care Provider Corinna Rodriges MD Unavailable [phone] Galo Ross MD Unavailable [phone] Sohail Olmstead MD Unavailable [phone] Galo Gill MD Unavailable Unavailab Aerlis Carrasco PA-C Unavailable [phone] Corinna Rodriges MD Unavailable [phone] Loly Calderon PA-C Unavailable [phone] Galo Gill MD Unavailable Unavailab Robe Marshall MD Unavailable Robe Calero MD Unavailable Loly Calderon PA-C Unavailable [phone] Encounter Details Date Type Department Care Team (Late st Contact Info) Description 11/06/2020 [facility] [address] [address] Suyapa Villafana CMA Social History Tobacco Use Types Packs/Day Years Used Date Smoking Tobacco: Never Smokeless Tobacco: Never Alcohol Use Standard Drinks/Week Comments Yes 0 (1 standard drink = 0.6 oz pur e alcohol) 0-1 drinks Q4M PHQ-2 Answer Date Recorded PHQ-2 Score 0 04/10/2020 Comments No Sex and Gender Information Value Date Recorded Sex Assigned at Female 08/08/2019 10:05 AM BILINGUAL TEACHER AIDE Legal Sex Female 3:14 AM BILINGUAL TEACHER AIDE Gender Identity Female 08/08/2019 10:05 AM BILINGUAL TEACHER AIDE Sexual Orientation Straight 08/08/2019 10 :05 AM BILINGUAL TEACHER AIDE Occupation Industry 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 Start 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[employer] 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 Not on karey e Not on file documented as of this encounter Plan of Treatment Upcoming Encounters Date Type Department Care Team (Late st Contact Info) Description 03/21/2025 12:15 PM CDT Virtual Visit [facility] [address] 4th [place] [phone] Loly Calderon PA-C [address] [place], [place] [phone] 05/21/2025 12:00 PM CDT Virtual Visit [facility] [address] [place] [address] Corinna Rodriges MD [address] [place], [place] 442332 Delmi Garcia [address] [phone] documented as of this encounter Visit Diagnoses Not on filedocumented in this encounter Additional Health Concerns Infection Onset Date Last Indicated Resolved Time Rule Out COVID-19 08/28/2021 08/28/2021 08/29/2021 5:48 PM BILINGUAL TEACHER AIDE Rule Out COVID-19 09/30/2021 09/30/2021 09/30/2021 10:11 PM BILINGUAL TEACHER AIDE Rule Out COVID-19 03/30/2024 03/30/2024 03/30/2024 7:56 PM CDT Assessment Noted Time PHQ-9 Depression Total Score: 2 04/11/20 20 4:02 PM CDT documented as of this encounter Care Teams Awning Hanger Supervisor Relationship Specialty Start Date End Date Corinna Rodriges MD [address] [place] [address] PCP - General 03/04/08 Corinna Rodriges MD [address] [place] [address] Assigned PCP 12/05/13 Galo Ross MD [address] [place] [address] Assigned OBGYN Provider 08/30/21 Sohail Olmstead MD [address] [place] [address] Assigned Surgical Provider 01/22/23 07/29/24 Galo Gill MD [address] [place] [address] Cardiovascular Disease 04/19/24 12/19/24 Arelis Vega PA-C [address] [address] Physician Coconut Boiler 07/02/24 Corinna Rodriges MD [address] [place] [address] 63041 Family Medicine 07/02/24 Loly Calderon PA-C [address] [place] [address] Physician Coconut Boiler Gastroenterology 07/02/24 Galo Gill MD Assigned Heart and Vascular Provider 07/30/24 Robe Calero MD 500 [place] [address] Assigned Surgical Provider 09/30/24 10/27/24 Robe Calero MD [address] [place], [place] 959625 Assigned Dermatology Provider 10/28/24 Loly Calderon PA-C [address] [place], [place] 957135 Assigned Gastroenterology Provider 10/28/24 documented as of this encounter
--- OUTSIDE RECORDS SUMMARY | 2025-03-04 21:53 | XMS_ITS | Encounter Summary ---
Author Organization [place] Address [address] [place] [address] Care Team Providers Care Acute Care Occupational Therapist Name Role Phone Corinna Rodriges MD Primary Care Provider Corinna Rodriges MD Unavailable [phone] Sohail Olmstead MD Unavailable [phone] Galo Gill MD Unavailable Unavailab Arelis Carrasco PA-C Unavailable [phone] Corinna Rodriges MD Unavailable [phone] Loly Calderon PA-C Unavailable [phone] Galo Gill MD Unavailable Unavailab Robe Marshall MD Unavailable Robe Calero MD Unavailable Loly Calderon PA-C Unavailable [phone] Reason for Visit * Reason Onset Date Comments Refill Request 12/04/2023 Encounter Details Date Type Department Care Team (Late st Contact Info) Description 12/04/2023 [facility] Refill [address] [address] Corinna Rodriges MD [address] [place] [address] Refill Request Social History Tobacco Use Types Packs/Day Years Used Date Smoking Tobacco: Never Smokeless Tobacco: Never Alcohol Use Standard Drinks/Week Comments Not Currently 0 (1 standard drink = 0.6 oz pur e alcohol) minimal alcohol use. PHQ-2 Answer Date Recorded PHQ-2 Score 0 12/29/2022 [place] Depression Scale Answer Date Recorded Last EPDS [...] you got money to buy more? No 05/01/2023 Within the past 12 months, d id the food you bought just not last and you didn t have money to get more? No 05/01/2023 Housing Stability Answer Date Recorded Do you have housing? (Rerein g is defined as stable permanent housing and does not include staying outside in a car, in a tent, in an abandoned building, in an overnight nursing home, or couch-surfing.) Yes 05/01/2023 Are you worried about losing your housing? No 05/01/2023 Financial Resource Strain Answer Date R ecorded Within the past 12 months, h ave you or your family members you live with been unable to get utilities (heat, electricity) when it was really needed? No 05/01/2023 Transportation Needs Answer Date Record ed Within the past 12 months, h as lack of transportation kept you from medical appointments, getting your medicines, non-medical meetings or appointments, work, or from getting things that you need? No 05/01/2023 Interpersonal Safety Answer Date Record ed Do you feel physically and e motionally safe where you currently live? Yes 05/02/2023 Within the past 12 months, h ave you been hit, slapped, kicked or otherwise physically hurt by someone? No 05/02/2023 Within the past 12 months, h ave you been humiliated or emotionally abused in other ways by your partner or ex-partner? 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 Closed encounter Abbie Auguste * Telephone Encounter - Abbie Nelson - 12/05/2023 5:44 PM CDT LM w/pt to call at earliest convenience to make appt to follow-up with provider. Gave our # Abbie K * Telephone Encounter - Shira Grant CNP - 12/05/2023 3:41 PM CDT Due for visit. Will fill supply to allow time for scheduling. Shira Grant CNP documented in this encounter Plan of Treatment Upcoming Encounters Date Type Department Care Team (Late st Contact Info) Description 03/21/2025 12:15 PM CDT Virtual Visit [facility] [address] 4th [place] [phone] Loly Calderon PA-C [address] [place] [address] 05/21/2025 12:00 PM CDT Virtual Visit [facility] [address] [place] [phone] Corinna Rodriges MD [address] [place] [address] Delmi Garcia, [address] [place], [place] [phone] documented as of this encounter Visit Diagnoses Diagnosis Attention deficit hyperactivity disorder, 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 documented in this encounter Additional Health Concerns Infection Onset Date Last Indicated Resolved Time Rule Out COVID-19 03/30/2024 03/30/2024 03/30/2024 7:56 PM CDT Assessment Noted Time PHQ-9 Depression Total Score: 1 12/30/19 4:00 PM CDT documented as of this encounter Care Teams Acute Care Occupational Therapist Relationship Specialty Start Date End Date Corinna Rodriges MD [address] [place] [address] [phone] PCP - General 03/04/08 Corinna Rodriges MD [address] [place] [address] 468702 Assigned PCP 12/05/13 Sohail Olmstead MD [address] [place] [address] Assigned Surgical Provider 01/22/23 07/29/24 Galo Gill MD [address] [place] [address] Cardiovascular Disease 04/19/24 12/19/24 Arelis Vega PA-C [address] [place] [address] 11961 Physician Switchboard Operator 07/02/24 Corinna Rodriges MD [address] [place] [address]86 Family Medicine 07/02/24 Loly Calderon PA-C [address] [place] [address] Physician Switchboard Operator Gastroenterology 07/02/24 Galo Gill MD Assigned Heart and Vascular Provider 07/30/24 Robe Calero MD [address] [place] [address] Assigned Surgical Provider 09/30/24 10/27/24 Robe Calero MD [address] [place] [address] Assigned Dermatology Provider 10/28/24 Loly Calderon PA-C [address] [place] [address] Assigned Gastroenterology Provider 10/28/24 documented as of this encounter
--- OUTSIDE RECORDS SUMMARY | 2025-03-04 21:53 | XMS_ITS | Encounter Summary ---
Author Organization [place] Address [address] [place] [address] Care Team Providers Care Bacon Slicer Name Role Phone Corinna Rodriges MD Primary Care Provider Corinna Rodriges MD Unavailable [phone] Sohail Olmstead MD Unavailable [phone] Galo Gill MD Unavailable Unavailab Arelis Carrasco PA-C Unavailable [phone] Corinna Rodriges MD Unavailable [phone] Loly Calderon PA-C Unavailable [phone] Galo Gill MD Unavailable Unavailab Robe Marshall MD Unavailable Robe Calero MD Unavailable Loly Calderon PA-C Unavailable [phone] Encounter Details Date Type Department Care Team (Late st Contact Info) Description 09/30/2023 [facility] [address] [phone] Corinna Rodriges MD [address] [place] [address] Social History Tobacco Use Types Packs/Day Years Used Date Smoking Tobacco: Never Smokeless Tobacco: Never Alcohol Use Standard Drinks/Week Comments Not Currently 0 (1 standard drink = 0.6 oz pur e alcohol) minimal alcohol use. 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 Not on karey e Not on file documented as of this encounter Plan of Treatment Upcoming Encounters Date Type Department Care Team (Late st Contact Info) Description 03/21/2025 12:15 PM CDT Virtual Visit [facility] [address] 4th [place] [phone] Loly Calderon PA-C [address] [place] [address] [phone] 05/21/2025 12:00 PM CDT Virtual Visit [facility] [address] [place] [address] [phone] Corinna Rodriges MD [address] [place] [address] [phone] Delmi Garcia, [address] [phone] documented as of this encounter Visit Diagnoses Not on filedocumented in this encounter Additional Health Concerns Infection Onset Date Last Indicated Resolved Time Rule Out COVID-19 03/30/2024 03/30/2024 03/30/2024 7:56 PM CDT Assessment Noted Time PHQ-9 Depression Total Score: 1 12/30/19 23 4:00 PM CDT documented as of this encounter Care Teams Bacon Slicer Relationship Specialty Start Date End Date Corinna Rodriges MD [address] [place] [address] PCP - General 03/04/08 Corinna Rodriges MD [address] [place] [address]67[address] Assigned PCP 12/05/13 Sohail Olmstead MD [address] [place] [address] Assigned Surgical Provider 01/22/23 07/29/24 Galo Gill MD [address] [place] [address] Cardiovascular Disease 04/19/24 12/19/24 Arelis Vega PA-C [address] [address] Physician Protective Services Social Worker 07/02/24 Corinna Rodriges MD [address] [place] [address]66 Family Medicine 07/02/24 Loly Calderon PA-C [address] [place] [address] Physician Protective Services Social Worker Gastroenterology 07/02/24 Galo Gill MD Assigned Heart and Vascular Provider 07/30/24 Robe Calero MD 500 [place] [address] Assigned Surgical Provider 09/30/24 10/27/24 Robe Calero MD [address] [place], [place] 791645 Assigned Dermatology Provider 10/28/24 Loly Calderon PA-C [address] [place] [address] Assigned Gastroenterology Provider 10/28/24 documented as of this encounter
--- OUTSIDE RECORDS SUMMARY | 2025-03-04 21:53 | XMS_ITS | Clinical Summary ---
Author Organization [facility] Address [address] [place] [address] Care Team Providers Care Supervisor Shipfitters Name Role Phone Corinna Rodriges MD Primary Care Provider [phone] Allergies Active Allergy Reactions Criticality Noted Date Comments Codeine Vomiting 01/15/2014 Minocycline Hives 01/15/2014 Medications dextroamphetami ne-amphetamine (ADDERALL XR) 30 mg Extended-Releas e capsule Take 1 capsule by mouth every morning. 0 01/15/2014 Active dextroamphetami ne-amphetamine (ADDERALL XR) 10 mg Extended-Releas e capsule Take 1 capsule by mouth once daily with lunch. 0 01/15/2014 Active drospirenone-et hinyl estradiol (ALECIA 28) 3-20 mg-mcg tablet Take 1 tablet by mouth once daily. 1 Package 0 01/15/2014 Active multivitamin (MVI) tablet Take 1 tablet by mouth once daily. 0 01/15/2014 Active albendazole (ALBENZA) 200 mg tabletIndicatio ns:Anal itching,Lower abdominal pain Take 2 tablets by mouth today & then 2 tablets by mouth 2 weeks from today. 4 tablet 0 11/25/2015 Active Active Problems Problem Noted Date Diagnosed Date ADHD (attention deficit hyperactivity disorder) 11/26/2015 Social History Tobacco Use Types Packs/Day Years Used Date Smoking Tobacco: Never Smokeless Tobacco: Never Alcohol Use Standard Drinks/Week Comments Not Asked 0 (1 standard drink = 0.6 oz pur e alcohol) Comments No Sex and Gender Information Value Date Recorded Sex Assigned at Not on file Legal Sex Female 7:15 PM CDT Gender Identity Not on file Sexual Orientation Not on file Obstetrics History Last Filed Vital Signs Vital Sign Reading Time Taken Comments Blood Pressure 126/81 11/25/2015 8:52 PM CDT Pulse 87 11/25/2015 8:52 PM CDT Temperature 36.7 C (98.1 F) 11/25/2015 8:52 PM CDT Respiratory Rate 16 11/25/2015 8:52 PM CDT Oxygen Saturation 100% 11/25/2015 8:52 PM CDT Inhaled Oxygen Concentration - - Weight 77.1 kg (170 lb) 11/25/2015 3:09 PM CDT Height 179.1 cm (5' 10.5) 11/25/2015 3:09 PM CD T Body Mass Index 24.05 11/25/2015 3:09 PM CDT Plan of Treatment Health Maintenance Due Date Last Done Comments Tetanus booster 1997 Depression screening for age 12+ 1998 HIV for age 15-65 2001 Hepatitis C screening for ag e 18-79 2004 Hepatitis B series for 19+ ( 1 of 3 - 19+ 3-dose series) 2005 Pap test for age 21-65 2007 BMI (ht and wt on same day) for age 18+ 11/24/2016 11/25/2015 COVID-19 vaccine series (2023- season) 2024 Influenza Vaccine (#1) 2025 Pneumococcal series for age 6-49 Aged Out No longer eligible based on patient's age to complete this topic Insurance [facility] Care Teams Supervisor Shipfitters Relationship Specialty Start Date End Date Corinna Rodriges MD PCP - General Family Practice 01/15/14
--- OUTSIDE RECORDS SUMMARY | 2025-03-04 21:53 | XMS_ITS | Encounter Summary ---
Author Organization [place] Address [address] [place] [address] Care Team Providers Care Sprayer Leather Name Role Phone Corinna Rodriges MD Primary Care Provider Corinna Rodriges MD Unavailable [phone] Galo Ross MD Unavailable [phone] Sohail Olmstead MD Unavailable [phone] Galo Gill MD Unavailable Unavailab Arelis Carrasco PA-C Unavailable [phone] Corinna Rodriges MD Unavailable [phone] Loly Calderon PA-C Unavailable [phone] Galo Gill MD Unavailable Unavailab Robe Marshall MD Unavailable Robe Calreo MD Unavailable Loly Calderon PA-C Unavailable [phone] Reason for Visit * Reason Onset Date Comments Refill Request 08/07/2020 Encounter Details Date Type Department Care Team (Late st Contact Info) Description 08/07/2020 MyC Refill [address] [phone] Corinna Rodriges MD [address] [place] [address] Refill Request Social History Tobacco Use Types Packs/Day Years Used Date Smoking Tobacco: Never Smokeless Tobacco: Never Alcohol Use Standard Drinks/Week Comments Yes 0 (1 standard drink = 0.6 oz pur e alcohol) 0-1 drinks Q4M PHQ-2 Answer Date Recorded PHQ-2 Score 0 04/10/2020 Comments No Sex and Gender Information Value Date Recorded Sex Assigned at Female 08/08/2019 10:05 AM ACCOUNTS PAYABLE ANALYST Legal Sex Female 3:14 AM ACCOUNTS PAYABLE ANALYST Gender Identity Female 08/08/2019 10:05 AM ACCOUNTS PAYABLE ANALYST Sexual Orientation Straight 08/08/2019 10 :05 AM ACCOUNTS PAYABLE ANALYST Occupation Industry Job Start 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 Job 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 [employer] Not on file Not on karey e Not on file documented as of this encounter Miscellaneous Notes * Telephone Encounter - Sarah Howard RN - 08/11/2020 10:04 AM ACCOUNTS PAYABLE ANALYST amphetamine-dextroamphetamine (ADDERALL XR) 20 MG 24 hr capsule 10 capsule 0 07/12/2020 No Sig - Route: Take 1 capsule (20 mg) by mouth daily On the weekends or days off - Oral Sent to pharmacy as: Amphetamine-Dextroamphet ER 20 MG Oral Capsule Extended Release 24 Hour (Adderall XR) Class: E-Prescribe amphetamine-dextroamphetamine (ADDERALL XR) 30 MG 24 hr capsule 30 capsule 0 07/12/2020 No Sig - Route: Take 1 capsule (30 mg) by mouth daily - Oral Sent to pharmacy as: Amphetamine-Dextroamphet ER 30 MG Oral Capsule Extended Release 24 Hour (Adderall XR) Last office visit: 06/09/2020 Future Office Visit: Problem List Complete: Yes L THE MOST RECENT OFFICE VISIT MUST BE WITHIN THE PAST 3 MONTHS. AT LEAST ONE FACE TO FACE VISIT MUSTOCCUR EVERY 6 MONTHS. ADDITIONAL VISITS CAN BE VIRTUAL. (THIS STATEMENT SHOULD BE DELETED.) Future Office visit: Controlled substance agreement: Encounter-Level CSA - 12/06/2016: Controlled Substance Agreement - Scan on 12/14/2016 4:16 PM: CONTROLLED SUBSTANCE AGREEMENT Encounter-Level CSA - 09/15/2015: Controlled Substance Agreement - Scan on 09/24/2015 12:20 PM: CONTROLLED SUBSTANCE AGREEMENT Encounter-Level CSA - 01/31/2015: Controlled Substance Agreement - Scan on 02/05/2015 9:00 AM: Controlled Medication Agreement 01/31/15 Patient-Level CSA: Controlled Substance Agreement - Non - Opioid - Scan on 08/20/2019 7:29 PM: NON- OPIOID CONTROLLED SUBSTANCE AGREEMENT Controlled Substance Agreement - Non - Opioid - Scan on 09/01/2018 10:40 AM: NON- OPIOID CONTROLLED SUBSTANCE AGREEMENT Last Urine Drug Screen: No results found for: CDAUT, Comprehen Drug Analysis UR Date Value Ref Range Status 03/31/2016 Final FINAL (Note) COMPREHENSIVE DRUG ANALYSIS,UR Test Result Flag Units Drug Present Amphetamine 4894 ng/mg creat Amphetamine is available as a schedule II prescription drug. Test Result Flag Units Ref Range Creatinine 145 mg/dL >=20 For clinical consultation, please call . Analysis performed by [facility], [address] [place] [address] , Cannabinoids ([id number]) Date Value Ref Range Status 08/13/2019 Not Detected NDET^Not Detected ng/mL Final Comment: Cutoff for a negative cannabinoid is 50 ng/mL or less. Phencyclidine (Phencyclidine) Date Value Ref Range Status 08/13/2019 Not Detected NDET^Not Detected ng/mL Final Comment: Cutoff for a negative PCP is 25 ng/mL or less. Cocaine (Benzoylecgonine) Date Value Ref Range Status 08/13/2019 Not Detected NDET^Not Detected ng/mL Final Comment: Cutoff for a negative cocaine is 150 ng/ml or less. Methamphetamine (d-Methamphetamine) Date Value Ref Range Status 08/13/2019 Not Detected NDET^Not Detected ng/mL Final Comment: Cutoff for a negative methamphetamine is 500 ng/ml or less. Opiates (Morphine) Date Value Ref Range Status 08/13/2019 Not Detected NDET^Not Detected ng/mL Final Comment: Cutoff for a negative opiate is 100 ng/ml or less. Amphetamine (d-Amphetamine) Date Value Ref Range Status 08/13/2019 Detected, Abnormal Result (A) NDET^Not Detected ng/mL Final Comment: Cutoff for a positive amphetamine is greater than 500 ng/ml. This is an unconfirmed screening result to be used for medical purposes only. Order [id number] for confirmation or individual confirmation tests to [facility]. Benzodiazepines (Nordiazepam) Date Value Ref Range Status 08/13/2019 Not Detected NDET^Not Detected ng/mL Final Comment: Cutoff for a negative benzodiazepine is 150 ng/ml or less. Tricyclic Antidepressants (Desipramine) Date Value Ref Range Status 08/13/2019 Not Detected NDET^Not Detected ng/mL Final Comment: Cutoff for a negative tricyclic antidepressant is 300 ng/ml or less. Methadone (Methadone) Date Value Ref Range Status 08/13/2019 Not Detected NDET^Not Detected ng/mL Final Comment: Cutoff for a negative methadone is 200 ng/ml or less. Barbiturates (Butalbital) Date Value Ref Range Status 08/13/2019 Not Detected NDET^Not Detected ng/mL Final Comment: Cutoff for a negative barbituate is 200 ng/ml or less. Oxycodone (Oxycodone) Date Value Ref Range Status 08/13/2019 Not Detected NDET^Not Detected ng/mL Final Comment: Cutoff for a negative Oxycodone is 100 ng/mL or less. Propoxyphene (Norpropoxyphene) Date Value Ref Range Status 08/13/2019 Not Detected NDET^Not Detected ng/mL Final Comment: Cutoff for a negative propoxyphene is 300 ng/ml or less Buprenorphine (Buprenorphine) Date Value Ref Range Status 08/13/2019 Not Detected NDET^Not Detected ng/mL Final Comment: Cutoff for a negative buprenorphine is 10 ng/ml or less Processing: Rx to be electronically transmitted to pharmacy by provider [email or web address] FLAKING ROLL OPERATOR checked in past 3 months? No, route to RN Sarah Howard RN, BSN [facility] Triage UNTS PAYABLE ANALYST documented in this encounter Plan of Treatment Upcoming Encounters Date Type Department Care Team (Late st Contact Info) Description 03/21/2025 12:15 PM CDT Virtual Visit [facility] [address] [place] [address] Loly Caldeorn PA-C [address] [place], [place] [phone] 05/21/2025 12:00 PM CDT Virtual Visit [facility] [address] [place] [phone] Corinna Rodriges MD [address] [place], [place] 212402 Delmi Garcia GC [address] [place] [address] [phone] documented as of this encounter Visit Diagnoses Diagnosis Attention deficit hyperactivity disorder, predominantly inattentive type- renewed CSA 08/25/2018 Controlled substance agreement signed- 08/25/2018- ok for adderall XR 30mg #25 /month and Adderall xr 20mg #10 monthly - see q6mos Encounter for long-term (current) use of other medications documented in this encounter Additional Health Concerns Infection Onset Date Last Indicated Resolved Time Rule Out COVID-19 08/28/2021 08/28/2021 08/29/2021 5:48 PM ACCOUNTS PAYABLE ANALYST Rule Out COVID-19 09/30/2021 09/30/2021 09/30/2021 10:11 PM ACCOUNTS PAYABLE ANALYST Rule Out COVID-19 03/30/2024 03/30/2024 03/30/2024 7:56 PM CDT Assessment Noted Time PHQ-9 Depression Total Score: 2 04/11/20 20 4:02 PM CDT documented as of this encounter Care Teams Sprayer Leather Relationship Specialty Start Date End Date Corinna Rodriges MD [address] [place] [address] PCP - General 03/04/08 Corinna Rodriges MD [address] [place] [address] Assigned PCP 12/05/13 Galo Ross MD [address] [facility] [address] [place], [place] 704734 Assigned OBGYN Provider 08/30/21 Sohail Olmstead MD [address] [place], [place] 597[address] Assigned Surgical Provider 01/22/23 07/29/24 Galo Gill MD [address] [place] [address] Cardiovascular Disease 04/19/24 12/19/24 Arelis Vega PA-C [address] [address] Physician Event Promoter 07/02/24 [place] [address] [place] [address] [phone] Family Medicine 07/02/24 Loly Calderon PA-C [address] [place], [place] 728555 Physician Event Promoter Gastroenterology 07/02/24 Galo Gill MD Assigned Heart and Vascular Provider 07/30/24 Robe Calero MD [address] [place], [place] 228045 Assigned Surgical Provider 09/30/24 10/27/24 Robe Calero MD [address] [place], [place] 144735 Assigned Dermatology Provider 10/28/24 Loly Calderon PA-C [address] [place], [place] 288625 Assigned Gastroenterology Provider 10/28/24 documented as of this encounter
--- OUTSIDE RECORDS SUMMARY | 2025-03-04 21:53 | XMS_ITS | Encounter Summary ---
Author Organization [place] Address [address] [place] [address] Care Team Providers Care Denture Finisher Name Role Phone Corinna Rodriges MD Primary Care Provider Corinna Rodriges MD Unavailable [phone] Galo Ross MD Unavailable [phone] Sohail Olmstead MD Unavailable [phone] Galo Gill MD Unavailable Unavailab Arelis Carrasco PA-C Unavailable [phone] Corinna Rodriges MD Unavailable [phone] Loly Calderon PA-C Unavailable [phone] Galo Gill MD Unavailable Unavailab Robe Marshall MD Unavailable Robe Calero MD Unavailable Loly aClderon PA-C Unavailable [phone] Reason for Visit * Reason Onset Date Comments Refill Request 10/27/2020 Encounter Details Date Type Department Care Team (Late st Contact Info) Description 10/27/2020 MyC Refill [address] [address] Corinna Rodriges MD [address] [place] [address] Refill Request Social History Tobacco Use Types Packs/Day Years Used Date Smoking Tobacco: Never Smokeless Tobacco: Never Alcohol Use Standard Drinks/Week Comments Yes 0 (1 standard drink = 0.6 oz pur e alcohol) 0-1 drinks Q4M PHQ-2 Answer Date Recorded PHQ-2 Score 0 04/10/2020 Comments No Sex and Gender Information Value Date Recorded Sex Assigned at Female 08/08/2019 10:05 AM WASH TUB MACHINE OPERATOR Legal Sex Female 3:14 AM WASH TUB MACHINE OPERATOR Gender Identity Female 08/08/2019 10:05 AM WASH TUB MACHINE OPERATOR Sexual Orientation Straight 08/08/2019 10 :05 AM WASH TUB MACHINE OPERATOR Occupation Industry Job Start 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 Pt needs recheck office visit to renew controlled substance agreement before more refills with utox. Please inform pt and Please assist pt in making appt to be seen. * Telephone Encounter - Keira Malone RN - 10/29/2020 8:18 AM CDT Outpatient Medication Detail Disp Refills Start End DANISH amphetamine-dextroamphetamine (ADDERALL XR) 20 MG 24 hr capsule 10 capsule 0 09/18/2020 No Sig - Route: Take 1 capsule (20 mg) by mouth daily On the weekends or days off - Oral Outpatient Medication Detail Disp Refills Start End DANISH amphetamine-dextroamphetamine (ADDERALL XR) 30 MG 24 hr capsule 30 capsule 0 09/18/2020 No Sig - Route: Take 1 capsule (30 mg) by mouth daily - Oral Problem List Complete: Yes Last Office Visit with [facility] primary care provider: 06/09/2020 Future Office visit: Controlled substance agreement: Encounter-Level [...] consultation, please call . Analysis performed by [facility], [address] [place] [address] , Cannabinoids ([id number]) Date Value Ref Range Status 08/13/2019 Not [...] be used for medical purposes only. Order [id number] for confirmation or individual confirmation tests to [facility]. Benzodiazepines (Nordiazepam) Date Value Ref Range Status [...] be electronically transmitted to pharmacy by provider [email or web address] Routing refill request to provider for review/approval because: Drug not on the [facility] refill protocol Keira Malone RN [facility] documented in this encounter Plan of Treatment Upcoming Encounters Date Type Department Care Team (Late st Contact Info) Description 03/21/2025 12:15 PM CDT Virtual Visit [facility] [address] [place] [phone] Loly Calderon PA-C [address] [place] [address] [phone] 05/21/2025 12:00 PM CDT Virtual Visit [facility] [address] [place] [phone] Corinna Rodriges MD [address] [place] [address] [phone] Delmi Garcia, DARIAN [address] [place], [place] [phone] documented as of this encounter Visit Diagnoses Diagnosis Attention deficit hyperactivity disorder, predominantly inattentive type- renewed CSA 08/13/2019 Controlled substance agreement signed- 08/13/2019- ok for adderall XR 30mg #25 /month and Adderall xr 20mg #10 monthly - see q6mos Encounter for long-term (current) use of other medications documented in this encounter Additional Health Concerns Infection Onset Date Last Indicated Resolved Time Rule Out COVID-19 08/28/2021 08/28/2021 08/29/2021 5:48 PM WASH TUB MACHINE OPERATOR Rule Out COVID-19 09/30/2021 09/30/2021 09/30/2021 10:11 PM WASH TUB MACHINE OPERATOR Rule Out COVID-19 03/30/2024 03/30/2024 03/30/2024 7:56 PM CDT Assessment Noted Time PHQ-9 Depression Total Score: 2 04/11/20 20 4:02 PM CDT documented as of this encounter Care Teams Denture Finisher Relationship Specialty Start Date End Date Corinna Rodriges MD [address] [place] [address] [id number] PCP - General 03/04/08 Corinna Rodriges MD [address] [place] [address] 548472 Assigned PCP 12/05/13 Galo Ross MD [address] [phone] Assigned OBGYN Provider 08/30/21 Sohail Olmstead MD [address] [place], [place] 7[address] Assigned Surgical Provider 01/22/23 07/29/24 Galo Gill MD [address] [place] [address] Cardiovascular Disease 04/19/24 12/19/24 Arelis Vega PA-C [address] [place] [address] Physician Apple Peeler Operator 07/02/24 [place] [address] [place] [address] [phone] Family Medicine 07/02/24 Loly Calderon PA-C [address] [place], [place] 223915 Physician Apple Peeler Operator Gastroenterology 07/02/24 Galo Gill MD Assigned Heart and Vascular Provider 07/30/24 Robe Calero MD [address] [place] [address] Assigned Surgical Provider 09/30/24 10/27/24 Robe Calero MD [address] [place], [place] 094475 Assigned Dermatology Provider 10/28/24 Loly Calderon PA-C [address] [place], [place] 308845 Assigned Gastroenterology Provider 10/28/24 documented as of this encounter
--- OUTSIDE RECORDS SUMMARY | 2025-03-04 21:53 | XMS_ITS | Encounter Summary ---
Author Organization [place] Address [address] [place] [address] Care Team Providers Care Wood Inspector Name Role Phone Corinna Rodriges MD Primary Care Provider Corinna Rodriges MD Unavailable [phone] Corinna Rodriges MD Unavailable [phone] Galo Ross MD Unavailable [phone] Sohail Olmstead MD Unavailable [phone] Galo Gill MD Unavailable Unavailab Arelis Carrasco PA-C Unavailable [phone] Corinna Rodriges MD Unavailable [phone] Loly Calderon PA-C Unavailable [phone] Galo Gill MD Unavailable Unavailab Robe Marshall MD Unavailable Robe Calero MD Unavailable Loly Calderon PA-C Unavailable [phone] Encounter Details Date Type Department Care Team (Late st Contact Info) Description 06/04/2010 [facility] [address] [place] [address] [facility] Social History Tobacco Use Types Packs/Day Years Used Date Smoking Tobacco: Never Alcohol Use Standard Drinks/Week Comments Yes 0 (1 standard drink = 0.6 oz pure alcohol) occasionally in college - every other week Comments No Sex and Gender Information Value Date Recorded Sex Assigned at Female 08/08/2019 10:05 AM ROLLER DIE CUTTING MACHINE OPERATOR Legal Sex Female 3:14 AM ROLLER DIE CUTTING MACHINE OPERATOR Gender Identity Female 08/08/2019 10:05 AM ROLLER DIE CUTTING MACHINE OPERATOR Sexual Orientation Straight 08/08/2019 10 :05 AM ROLLER DIE CUTTING MACHINE OPERATOR Occupation Industry Job Start Date Job End Date [employer] [facility] [facility] - mass/comm/[place] Not on file Not on file Not on file documented as of this encounter Plan of Treatment Upcoming Encounters Date Type Department Care Team (Late st Contact Info) Description 03/21/2025 12:15 PM CDT Virtual Visit [facility] [address] [place] [phone] Loly Calderon PA-C [address] [place], [place] [address]755 05/21/2025 12:00 PM CDT Virtual Visit [facility] [address] [place] [address] [place] [address] [place] [address] 756272 Delmi Garcia [address] [phone] documented as of this encounter Visit Diagnoses Not on filedocumented in this encounter Additional Health Concerns Infection Onset Date Last Indicated Resolved Time Rule Out COVID-19 08/28/2021 08/28/2021 08/29/2021 5:48 PM ROLLER DIE CUTTING MACHINE OPERATOR Rule Out COVID-19 09/30/2021 09/30/2021 09/30/2021 10:11 PM ROLLER DIE CUTTING MACHINE OPERATOR Rule Out COVID-19 03/30/2024 03/30/2024 03/30/2024 7:56 PM CDT documented as of this encounter Care Teams Wood Inspector Relationship Specialty Start Date End Date Corinna Rodriges MD [address] [place] [address] PCP - General 03/04/08 Corinna Rodriges MD [address] [place] [address] 15741 PCP - Assigned PCP 12/05/13 10/10/18 Corinna Rodriges MD [address] [place] [address] 260922 Assigned PCP 12/05/13 Galo Ross MD [address] [id number] Assigned OBGYN Provider 08/30/21 Sohail Olmstead MD [address] [place] [address] Assigned Surgical Provider 01/22/23 07/29/24 Galo Gill MD [address] [place] [address] Cardiovascular Disease 04/19/24 12/19/24 Arelis Vega PA-C [address] [place] [address] Physician Ribbon Winder 07/02/24 Corinna Rodriges MD [address] [place] [address] Family Medicine 07/02/24 Loly Calderon PA-C [address] [place] [address] Physician Ribbon Winder Gastroenterology 07/02/24 Galo Gill MD Assigned Heart and Vascular Provider 07/30/24 Robe Calero MD 500 [place] [address] Assigned Surgical Provider 09/30/24 10/27/24 Robe Calero MD 500 [place] [address] Assigned Dermatology Provider 10/28/24 Loly Calderon PA-C [address] [place] [address] Assigned Gastroenterology Provider 10/28/24 documented as of this encounter
== END 2025-03-04 21:52 | disposition left against medical advice (07) ==
LOC: ED 21:50
PROVIDERS: Emergency Provider Emergency Medicine
DX: Z53.21 Procedure and treatment not carried out due to patient leaving prior to being seen by health care provider (principal)
CPT/HCPCS: 81001; 81025

== ENCOUNTER 2025-03-10 23:37 | Emergency (ER) | payer BC, SELFPAY ==
--- OUTSIDE RECORDS SUMMARY | 2025-03-04 18:00 | XMS_ITS | Encounter Summary ---
Author Organization [facility] Address [address] [place] [address]. [place] [address] Care Team Providers Care Filter Press Tender Head Name Role Phone Corinna Rodriges MD Primary Care Provider Corinna Rodriges MD Unavailable [phone] Arelis Vega PA-C Unavailable [phone] Corinna Rodriges MD Unavailable [phone] Loly Calderon PA-C Unavailable [phone] Galo Gill MD Unavailable Unavailab Robe Marshall MD Unavailable Loly Calderon PA-C Unavailable [phone] Reason for Visit * Reason Comments UTI 39 yo F presents wit h the following complaint unable to empty bladder lower back pain onset 3 hrs ago feels like a possible kidney stone also complaining of nausea and sweating Encounter Details Date Type Department Care Team (Late st Contact Info) Description 03/04/2025 6:00 PM CDT Office Visit [facility] [address] [place] [address] Beatrice Pinon, RAILROAD WHEELS AND AXLE INSPECTOR CHURCH SUPERVISOR [address] [place] [address] Dysuria (Primary Dx) Social History Tobacco Use Types Packs/Day Years Used Date Smoking Tobacco: Never Smokeless Tobacco: Never Alcohol Use Standard Drinks/Week Comments Yes 0 (1 standard drink = 0.6 oz pur e alcohol) socially Social Connection and Isolation Panel [NHANES] A nswer Date Recorded Frequency of Communication with Friends and Fami ly Not on file 06/27/2024 How often do you get together with friends or re latives? Twice a week 06/27/2024 Attends Zoroastrian Services Not on file 06/27 Active Member of Clubs or Organizations Not on f ile 06/27/2024 Attends Club or Organization Meetings Not on karey e 06/27/2024 Marital Status Not on file 06/27/2024 PHQ-2 Answer Date Recorded PHQ-2 Score 0 06/27/2024 [facility] - Occupational Stress Questionnaire Answer Date Recorded Do you feel stress - tense, restless, nervous, or anxious, or unable to sleep at night because your mind is troubled all the time - these days? Only a little 06/27/2024 Exercise Vital Sign Answer Date Recorde d On average, how many days pe r week do you engage in moderate to strenuous exercise (like a brisk walk)? 3 days 06/27/2024 On average, how many minutes do you engage in exercise at this level? 40 min 06/27/2024 [place] Depression Scale Answer Date Recorded Last EPDS Total Score Not on file 12/06/2021 The thought of harming myself has occurred to me . Never 12/06/2021 Adolescent Education Answer Date Record ed Getting School Help Needed Not on file 05/01 Food Insecurity Answer Date Recorded Within the past 12 months, d id you worry that your food would run out before you got money to buy more? No 06/27/2024 Within the past 12 months, d id the food you bought just not last and you didn t have money to get more? No 06/27/2024 Housing Stability Answer Date Recorded Do you have housing? (Housin g is defined as stable permanent housing and does not include staying outside in a car, in a tent, in an abandoned building, in an overnight senior living, or couch-surfing.) Yes 06/27/2024 Are you worried about losing your housing? No 06/27/2024 Financial Resource Strain Answer Date R ecorded Within the past 12 months, h ave you or your family members you live with been unable to get utilities (heat, electricity) when it was really needed? No 06/27/2024 Transportation Needs Answer Date Record ed Within the past 12 months, h as lack of transportation kept you from medical appointments, getting your medicines, non-medical meetings or appointments, work, or from getting things that you need? No 06/27/2024 Interpersonal Safety Answer Date Record ed Do you feel physically and e motionally safe where you currently live? Yes 06/27/2024 Within the past 12 months, h ave you been hit, slapped, kicked or otherwise physically hurt by someone? No 06/27/2024 Within the past 12 months, h ave you been humiliated or emotionally abused in other ways by your partner or ex-partner? 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 Not on file Not on karey e Not on file documented as of this encounter Last Filed Vital Signs Vital Sign Reading Time Taken Comments Blood Pressure 118/50 03/04/2025 6:20 PM CDT Pulse 79 03/04/2025 6:20 PM CDT Temperature 36.6 C (97.8 F) 03/04/2025 6:20 PM CDT Respiratory Rate 17 03/04/2025 6:20 PM CDT Oxygen Saturation 100% 03/04/2025 6:20 PM CDT Inhaled Oxygen Concentration - - Weight 83.6 kg (184 lb 3.2 oz) 03/04/2025 6:20 P M CDT Height 180.3 cm (5' 11) 03/04/2025 6:20 PM CDT Body Mass Index 25.69 03/04/2025 6:20 PM CDT documented in this encounter Patient Instructions * Patient Instructions* Beatrice Pinon APRN CHURCH SUPERVISOR - 03/04/2025 6:00 PM CDT Results for orders placed or performed in visit on 03/04/25 UA with Microscopic reflex to Culture - Clinic Collect Status: Abnormal Specimen: Urine, Midstream Result Value Ref Range Color Urine Dark Yellow (A) Colorless, Straw, Light Yellow, Yellow Appearance Urine Slightly Cloudy (A) Clear Glucose Urine Negative Negative mg/dL Bilirubin Urine Negative Negative Ketones Urine Negative Negative mg/dL Specific [place] Urine 1.010 1.003 - 1.035 Blood Urine Large (A) Negative pH Urine 6.5 5.0 - 7.0 Protein Albumin Urine Negative Negative mg/dL Urobilinogen Urine 0.2 0.2, 1.0 E.U./dL Nitrite Urine Negative Negative Leukocyte Esterase Urine Negative Negative UA Microscopic with Reflex to Culture Status: Abnormal Result Value Ref Range Bacteria Urine Few (A) None Seen /HPF RBC Urine 10-25 (A) 0-2 /HPF /HPF WBC Urine None Seen 0-5 /HPF /HPF Squamous Epithelials Urine Moderate (A) None Seen /LPF Mucus Urine Present (A) None Seen /LPF Narrative Urine Culture not indicated Ua abnormal but likely contamination not UTI Large blood. Unable to get CT to r/o stone/obstruction in UC setting With the severity of her pain I do not suggest waiting until tomorrow for ADS. Recommend follow up in [facility]. documented in this encounter Progress Notes * Beatrice Pinon APRN CNP - 03/04/2025 6:00 PM CDT Urgent Care Clinic Visit Chief Complaint Patient presents with UTI 39 yo F presents with the following complaint unable to empty bladder lower back pain onset 3 hrs ago feels like a possible kidney stone also complaining of nausea and sweating Assessment & Plan Dysuria - UA with Microscopic reflex to Culture - Clinic Collect - UA Microscopic with Reflex to Culture Patient Instructions Results for orders placed or performed in visit on 03/04/25 UA with Microscopic reflex to Culture - Clinic Collect Status: Abnormal Specimen: Urine, Midstream Result Value Ref Range Color Urine Dark Yellow (A) Colorless, Straw, Light Yellow, Yellow Appearance Urine Slightly Cloudy (A) Clear Glucose Urine Negative Negative mg/dL Bilirubin Urine Negative Negative Ketones Urine Negative Negative mg/dL Specific [place] Urine 1.010 1.003 - 1.035 Blood Urine Large (A) Negative pH Urine 6.5 5.0 - 7.0 Protein Albumin Urine Negative Negative mg/dL Urobilinogen Urine 0.2 0.2, 1.0 E.U./dL Nitrite Urine Negative Negative Leukocyte Esterase Urine Negative Negative UA Microscopic with Reflex to Culture Status: Abnormal Result Value Ref Range Bacteria Urine Few (A) None Seen /HPF RBC Urine 10-25 (A) 0-2 /HPF /HPF WBC Urine None Seen 0-5 /HPF /HPF Squamous Epithelials Urine Moderate (A) None Seen /LPF Mucus Urine Present (A) None Seen /LPF Narrative Urine Culture not indicated Ua abnormal but likely contamination not UTI Large blood. Unable to get CT to r/o stone/obstruction in UC setting With the severity of her pain I do not suggest waiting until tomorrow for ADS. Recommend follow up in ER tonight. Return in about 2 days (around 03/06/2025) for with regular provider if symptoms persist. Beatrice Pinon APRN [facility] Tori Milligan is a 39 year old female who presents to clinic today for the following health issues: Chief Complaint Patient presents with UTI 39 yo F presents with the following complaint unable to empty bladder lower back pain onset 3 hrs ago feels like a possible kidney stone also complaining of nausea and sweating 03/04/2025 6:22 PM Additional Questions Roomed by Marie Accompanied by Self HPI UTI Onset of symptoms was 3hour(s). Course of illness is worsening Severity severe Current and associated symptoms dysuria, frequency, urgency, and voiding in small amounts Treatment and measures tried Increase fluid intake Predisposing factors include none Patient denies rigors, flank pain, temperature > 101 degrees F., vaginal discharge, vaginal odor, and vaginal itching Review of Systems Constitutional, HEENT, cardiovascular, pulmonary, GI, , musculoskeletal, neuro, skin, endocrine and psych systems are negative, except as otherwise noted. Objective BP 118/50 Pulse 79 Temp 97.8 ??F (36.6 ??C) Resp 17 Ht 1.803 m (5' 11) Wt 83.6 kg (184 lb 3.2 oz) SpO2 100% BMI 25.69 kg/m?? Physical Exam GENERAL: alert and no distress RESP: lungs clear to auscultation - no rales, rhonchi or wheezes CV: regular rate and rhythm, normal S1 S2, no S3 or S4, no murmur, click or rub, no peripheral edema ABDOMEN: soft, nontender, no hepatosplenomegaly, no masses and bowel sounds normal MS: no gross musculoskeletal defects noted, no edema BACK: no CVA tenderness, no paralumbar tenderness documented in this encounter Plan of Treatment Upcoming Encounters Date Type Department Care Team (Late st Contact Info) Description 03/21/2025 12:15 PM CDT Virtual Visit [facility] [address] 4th [place] [address] Loly Calderon PA-C [address] [place] [address] [phone] 05/21/2025 12:00 PM CDT Virtual Visit [facility] [address] [address] Corinna Rodriges MD [address] [place], [place] [address] Delmi Garcia [address] [id number] documented as of this encounter Procedures Procedure Name Priority Date/Time Associated Diagnosis Comments UA MICROSCOPIC WITH REFLEX TO CULTURE Routine 03/04/2025 5:53 PM CDT Dysuria ROUTINE UA WITH MICROSCOPIC REFLEX TO CULTURE Routine 03/04/2025 5:53 PM CDT Dysuria documented in this encounter Results * (ABNORMAL) UA Microscopic with Reflex to Culture (03/04/2025 5:53 PM CDT) Bacteria Urine Few(A) None Seen /HPF E[facility] 03/04/2025 6:01 PM CDT [facility] RBC Urine 10-25(A) 0-2 /HPF /HPF ELAYNE 03/04/2025 6:01 PM CDT [facility] WBC Urine None Seen 0-5 /HPF /HPF E[facility] 03/04/2025 6:01 PM CDT [facility] Squamous Epithelials Urine Moderate( A) None Seen /LPF E[place] 03/04/2025 6:01 PM CDT [facility] Mucus Urine Present(A ) None Seen /LPF E[facility]NE 03/04/2025 6:01 PM CDT [facility] Urine MID-STREAM URINE SPECIMEN / Unknown Non-blood Collection / Unknown 03/04/2025 5:53 PM CDT 03/04/2025 5:53 PM CDT Narrative [facility] - 03/04/2025 6:01 PM CDT Urine Culture not indicated us Capri Bergman FILLER BLOCK INSERTER REMOVER LAB - URINE ORDERABLES Final Res ult LABORATORY [facility] [address] [facility] (no room number, 1st floor of clinic) [place] [address], [facility] * (ABNORMAL) UA with Microscopic reflex to Culture - Clinic Collect (03/04/2025 5:53 PM CDT) Color Urine Dark Yellow(A) Colorless, Straw, Light Yellow, Yellow 03/04/2025 5:58 PM CDT [facility] Appearance Urine Slightly Cloudy(A) Clear 03/04/2025 5:58 PM CDT [facility] Glucose Urine Negative Negative mg/dL 03/04/2025 5:58 PM CDT [facility] Bilirubin Urine Negative Negative 5:58 PM CDT [facility] Ketones Urine Negative Negative mg/dL 03/04/2025 5:58 PM CDT [facility] Specific [place] Urine 1.010 1.003 - 1.035 03/04/2025 5:58 PM CDT [facility] Blood Urine Large(A) Negative 03/04/2025 5:58 PM CDT [facility] pH Urine 6.5 5.0 - 7.0 03/04/2025 5:58 PM CDT [facility] Protein Albumin Urine Negative Negative mg/dL 03/04/2025 5:58 PM CDT [facility] Urobilinogen Urine 0.2 0.2, 1.0 E.U./dL 03/04/2025 5:58 PM CDT [facility] Nitrite Urine Negative Negative 03/04/2025 5:58 PM CDT [facility] Leukocyte Esterase Urine Negative Negative 03/04/2025 5:58 PM CDT [facility] Urine MID-STREAM URINE SPECIMEN / Unknown Non-blood Collection / Unknown 03/04/2025 5:53 PM CDT 03/04/2025 5:53 PM CDT us Capri Bergman FILLER BLOCK INSERTER REMOVER LAB - URINE ORDERABLES Final Res ult LABORATORY [facility] [address] [facility] (no room number, 1st floor of clinic) [place] [address] documented in this encounter Visit Diagnoses Diagnosis Dysuria- Primary documented in this encounter Additional Health Concerns Assessment Noted Time PHQ-9 Depression Total Score: 1 06/27/20 24 9:36 AM GOVERNMENT RELATIONS MANAGER documented as of this encounter Care Teams Filter Press Tender Head Relationship Specialty Start Date End Date Corinna Rodriges MD [address] [place] [id number] PCP - General 03/04/08 Corinna Rodriges MD [address] [place] [address] Assigned PCP 12/05/13 Arelis Vega PA-C [address] [place] [address] Physician Guillotine Trimmer 07/02/24 [place] [address] [place] [address] Family Medicine 07/02/24 Loly Calderon PA-C [address] [place] [address] Physician Guillotine Trimmer Gastroenterology 07/02/24 Galo Gill MD Assigned Heart and Vascular Provider 07/30/24 Robe Calero MD [address] [place], [place] [address] Assigned Dermatology Provider 10/28/24 Loly Calderon PA-C [address] [place], [place] [phone] Assigned Gastroenterology Provider 10/28/24 documented as of this encounter
--- OUTSIDE RECORDS SUMMARY | 2025-03-04 18:00 | XMS_ITS | Encounter Summary ---
Author Organization [facility] Address [address] [place] [address]. [place] [address] Care Team Providers Care Perforator Name Role Phone Corinna Rodriges MD Primary Care Provider Corinna Rodriges MD Unavailable [phone] Arelis Vega PA-C Unavailable [phone] Corinna Rodriges MD Unavailable [phone] Loly Calderon PA-C Unavailable [phone] Galo Gill MD Unavailable Unavailab Robe Marshall MD Unavailable Loly Calderon PA-C Unavailable [phone] Reason for Visit * Reason Comments UTI 39 yo F presents wit h the following complaint unable to empty bladder lower back pain onset 3 hrs ago feels like a possible kidney stone also complaining of nausea and sweating Encounter Details Date Type Department Care Team (Late st Contact Info) Description 03/04/2025 6:00 PM CDT Office Visit [facility] [address] [place] [address] Beatrice Pinon, PLANT TECHNICIAN PARTS BACK COUNTER MAN [address] [place] [address] Dysuria (Primary Dx) Social History Tobacco Use [...] re latives? Twice a week 06/27/2024 Attends [employer] Not on file 06/27 Active Member of Clubs or Organizations Not on f ile 06/27/2024 Attends Club or Organization Meetings Not on karey e 06/27/2024 Marital Status Not on file 06/27/2024 PHQ-2 Answer Date Recorded PHQ-2 Score 0 06/27/2024 [facility] - Occupational Stress Questionnaire Answer Date Recorded [...] exercise at this level? 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 Recommend follow up in [facility]. documented in this encounter Progress [...] Negative Ketones Urine Negative Negative mg/dL Specific [place] Urine 1.010 1.003 - 1.035 Blood Urine [...] provider if symptoms persist. Beatrice Pinon APRN [facility] Tori Milligan is a 39 year old [...] Description 03/21/2025 12:15 PM CDT Virtual Visit [facility] [address]th [place] [address] Loly Calderon PA-C [address] [place] [address] [phone] 05/21/2025 12:00 PM CDT Virtual Visit [facility] [address] [address] Corinna Rodriges MD [address] [place], [place] [address] Delmi Garcia [address] [id number] documented as of this encounter Procedures Procedure [...] Urine Culture not indicated us Capri Bergman VC++ DEVELOPER LAB - URINE ORDERABLES Final Res ult LABORATORY [facility] [address] [facility] (no room number, 1st floor of clinic) [place] [address], [facility] * (ABNORMAL) UA with Microscopic [...] 03/04/2025 5:58 PM CDT [facility] Specific [place] Urine 1.010 1.003 - 1.035 03/04/2025 5:58 [...] 03/04/2025 5:53 PM CDT us Capri Bergman VC++ DEVELOPER LAB - URINE ORDERABLES Final Res ult LABORATORY [facility] [address] [facility] (no room number, 1st floor of clinic) [place] [address] documented in this encounter Visit Diagnoses Diagnosis Dysuria- Primary documented in this encounter Additional Health Concerns Assessment Noted Time PHQ-9 Depression Total Score: 1 06/27/20 24 9:36 AM CATTLE FARMER documented as of this encounter Care Teams Perforator Relationship Specialty Start Date End Date Corinna Rodriges MD [address] [place] [address] PCP - General 03/04/08 Corinna Rodriges MD [address] [place] [address] Assigned PCP 12/05/13 Arelis Vega PA-C [address] [place] [address] Physician Sleep Tech 07/02/24 [place] [address] [address] Family Medicine 07/02/24 Loly Calderon PA-C [address] [place] [address] Physician Sleep Tech Gastroenterology 07/02/24 Galo Gill MD Assigned Heart and Vascular Provider 07/30/24 Robe Calero MD [address] [place], [place] [address] Assigned Dermatology Provider 10/28/24 Loly Calderon PA-C [address] [place], [place] [address] Assigned Gastroenterology Provider 10/28/24 documented as of this encounter
--- OUTSIDE RECORDS SUMMARY | 2025-03-10 23:39 | XMS_ITS | Encounter Summary ---
Author Organization [facility] Address [address] [place] [address] Care Team Providers Care Color Blender Name Role Phone Corinna Rodriges MD Primary Care Provider Corinna Rodriges MD Unavailable [phone] Galo Ross MD Unavailable [phone] Sohail Olmstead MD Unavailable [phone] Galo Gill MD Unavailable Unavailab Arelis Carrasco PA-C Unavailable [phone] Corinna Rodriges MD Unavailable [phone] Loly Calderon PA-C Unavailable [phone] Galo Gill MD Unavailable Unavailab Robe Marshall MD Unavailable Robe Calero MD Unavailable Loly Calderon PA-C Unavailable [phone] Encounter Details Date Type Department Care Team (Late st Contact Info) Description 10/05/2019 [facility] Advice [address] [address] Rajan Cabrera, RN Social History Tobacco Use Types Packs/Day Years Used Date Smoking Tobacco: Never Smokeless Tobacco: Never Alcohol Use Standard Drinks/Week Comments Yes 0 (1 standard drink = 0.6 oz pur e alcohol) 0-1 drinks Q4M PHQ-2 Answer Date Recorded PHQ-2 Score 1 08/13/2019 Comments No Sex and Gender Information Value Date Recorded Sex Assigned at Female 08/08/2019 10:05 AM BAKER BISCUIT Legal Sex Female 3:14 AM BAKER BISCUIT Gender Identity Female 08/08/2019 10:05 AM BAKER BISCUIT Sexual Orientation Straight 08/08/2019 10 :05 AM BAKER BISCUIT Occupation Industry Job Start Date Job End Date 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 [employer] Not on file Not on karey e Not on file documented as of this encounter Plan of Treatment Upcoming Encounters Date Type Department Care Team (Late st Contact Info) Description 03/21/2025 12:15 PM CDT Virtual Visit [facility] [address] 4th [place] [phone] Loly Calderon PA-C [address] [place], [place] 141115 05/21/2025 12:00 PM CDT Virtual Visit [facility] [address] [place] [address] Corinna Rodriges MD [address] [place], [place] [address]872 Delmi Garcia [address] [phone] documented as of this encounter Visit Diagnoses Not on filedocumented in this encounter Additional Health Concerns Infection Onset Date Last Indicated Resolved Time Rule Out COVID-19 08/28/2021 08/28/2021 08/29/2021 5:48 PM BAKER BISCUIT Rule Out COVID-19 09/30/2021 09/30/2021 09/30/2021 10:11 PM BAKER BISCUIT Rule Out COVID-19 03/30/2024 03/30/2024 03/30/2024 7:56 PM CDT Assessment Noted Time PHQ-9 Depression Total Score: 2 08/13/19 20 9:28 AM BAKER BISCUIT documented as of this encounter Care Teams Color Blender Relationship Specialty Start Date End Date Corinna Rodriges MD [address] [place] [address] PCP - General 03/04/08 Corinna Rodriges MD [address] [place] [address] Assigned PCP 12/05/13 Galo Ross MD [address] [place] [address] Assigned OBGYN Provider 08/30/21 Sohail Olmstead MD [address] [place] [address] Assigned Surgical Provider 01/22/23 07/29/24 Galo Gill MD [address] [place] [address] Cardiovascular Disease 04/19/24 12/19/24 Arelis Vega PA-C [address] [address] Physician Export Sales Assistant 07/02/24 Corinna Rodriges MD [address] [place] [address] Family Medicine 07/02/24 Loly Calderon PA-C [address] [place] [address] Physician Export Sales Assistant Gastroenterology 07/02/24 Galo Gill MD Assigned Heart and Vascular Provider 07/30/24 Robe Calero MD 500 [place] [address] Assigned Surgical Provider 09/30/24 10/27/24 Robe Caleor MD [address] [place], [place] 670025 Assigned Dermatology Provider 10/28/24 Loly Calderon PA-C [address] [place], [place] 812985 Assigned Gastroenterology Provider 10/28/24 documented as of this encounter
--- OUTSIDE RECORDS SUMMARY | 2025-03-10 23:39 | XMS_ITS | Encounter Summary ---
Author Organization [facility] Address [address] [place] [address]. [place] [address] Care Team Providers Care Administrative Professional Name Role Phone Corinna Rodriges MD Primary Care Provider Corinna Rodriges MD Unavailable [phone] Galo Gill MD Unavailable Unavailab Arelis Carrasco PA-C Unavailable [phone] Corinna Rodriges MD Unavailable [phone] Loly Calderon PA-C Unavailable [phone] Galo Gill MD Unavailable Unavailab Robe Marshall MD Unavailable Loly Calderon PA-C Unavailable [phone] Encounter Details Date Type Department Care Team (Late st Contact Info) Description 10/29/2024 [facility] [address] 4th [place] [address] Navarro Reynolds Social History Tobacco [...] re latives? Twice a week 06/27/2024 Attends Jain Services Not on file 06/27 Active Member of Clubs or Organizations Not on f ile 06/27/2024 Attends Club or Organization Meetings Not on karey e 06/27/2024 Marital Status Not on file 06/27/2024 PHQ-2 Answer Date Recorded PHQ-2 Score 0 06/27/2024 [facility] - Occupational Stress Questionnaire Answer Date [...] exercise at this level? 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 [address] [place] [address] Loly Calderon PA-C 500 [place], [place] [phone] 05/21/2025 12:00 PM CDT Virtual Visit [facility] [address] [place] [phone] Corinna Rodriges MD [address] [place], [place] [phone] Delmi Garcia GC [address] [place] [address] [phone] documented as of this encounter Visit Diagnoses Not on filedocumented in this encounter Additional Health Concerns Assessment Noted Time PHQ-9 Depression Total Score: 1 06/27/20 9:36 AM POULTRY CUTTER documented as of this encounter Care Teams Administrative Professional Relationship Specialty Start Date End Date Corinna Rodriges MD [address] [place] [address] PCP - General 03/04/08 Corinna Rodriges MD [address] [place] [address] Assigned PCP 12/05/13 Galo Gill MD [address] [place] [address] Cardiovascular Disease 04/19/24 12/19/24 Arelis Vega PA-C [address] [place] [address] Physician Cabin Supervisor 07/02/24 Corinna Rodriges MD [address] [place] [address] Family Medicine 07/02/24 Loly Calderon PA-C [address] [place] [address] Physician Cabin Supervisor Gastroenterology 07/02/24 Galo Gill MD Assigned Heart and Vascular Provider 07/30/24 Robe Calero MD 500 [place] [address] Assigned Dermatology Provider 10/28/24 Loly Calderon PA-C [address] [place] [address] Assigned Gastroenterology Provider 10/28/24 documented as of this encounter
--- OUTSIDE RECORDS SUMMARY | 2025-03-10 23:39 | XMS_ITS | Encounter Summary ---
Author Organization [place] Address [address] [place] [address] Care Team Providers Care Director Product Development Name Role Phone Corinna Rodriges MD Primary Care Provider Corinna Rodriges MD Unavailable [phone] Corinna Rodriges MD Unavailable [phone] Galo Ross MD Unavailable [phone] Sohail Olmstead MD Unavailable [phone] Galo Gill MD Unavailable Unavailab Arelis Carrasco PA-C Unavailable [phone] Corinna Rodriges MD Unavailable [phone] Loly Calderon PA-C Unavailable [phone] Galo Gill MD Unavailable Unavailab Robe Marshall MD Unavailable Robe Calero MD Unavailable Loly Calderon PA-C Unavailable [phone] Encounter Details Date Type Department Care Team (Late st Contact Info) Description 08/18/2018 [facility] Medical Advice [address] [address] Keira Malone, RN Social History Tobacco Use Types Packs/Day Years Used Date Smoking Tobacco: Never Smokeless Tobacco: Never Alcohol Use Standard Drinks/Week Comments Yes 0 (1 standard drink = 0.6 oz pur e alcohol) 0-1 drinks Q4M PHQ-2 Answer Date Recorded PHQ-2 Score 3 08/15/2018 Comments No Sex and Gender Information Value Date Recorded Sex Assigned at Female 08/08/2019 10:05 AM IT SOFTWARE DEVELOPER Legal Sex Female 3:14 AM IT SOFTWARE DEVELOPER Gender Identity Female 08/08/2019 10:05 AM IT SOFTWARE DEVELOPER Sexual Orientation Straight 08/08/2019 10 :05 AM IT SOFTWARE DEVELOPER 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 Not on karey e Not on file documented as of this encounter Plan of Treatment Upcoming Encounters Date Type Department Care Team (Late st Contact Info) Description 03/21/2025 12:15 PM CDT Virtual Visit [facility] [address] [place] [phone] Loly Calderon PA-C 500 [place], [place] [address] 05/21/2025 12:00 PM CDT Virtual Visit [facility] [address] [place] [phone] Corinna Rodriges MD [address] [place], [place] 427282 Delmi Garcia GC [address] [place] [address] [phone] documented as of this encounter Visit Diagnoses Not on filedocumented in this encounter Additional Health Concerns Infection Onset Date Last Indicated Resolved Time Rule Out COVID-19 08/28/2021 08/28/2021 08/29/2021 5:48 PM IT SOFTWARE DEVELOPER Rule Out COVID-19 09/30/2021 09/30/2021 09/30/2021 10:11 PM IT SOFTWARE DEVELOPER Rule Out COVID-19 03/30/2024 03/30/2024 03/30/2024 7:56 PM CDT Assessment Noted Time PHQ-9 Depression Total Score: 6 07/17/20 18 2:20 PM IT SOFTWARE DEVELOPER documented as of this encounter Care Teams Director Product Development Relationship Specialty Start Date End Date Corinna Rodriges MD [address] [place] [address] 171002 PCP - General 03/04/08 Corinna Rodriges MD [address] [place] [address] 288302 PCP - Assigned PCP 12/05/13 10/10/18 Corinna Rodriges MD [address] [place] [address] [id number] Assigned PCP 12/05/13 Galo Ross MD [address] 113464 Assigned OBGYN Provider 08/30/21 Sohail Olmstead MD [address] [place] [address] Assigned Surgical Provider 01/22/23 07/29/24 Galo Gill MD [address] [place] [address] Cardiovascular Disease 04/19/24 12/19/24 Arelis Vega PA-C [address] [place] [address] Physician Cheese Cutter 07/02/24 [place] [address] [place] [address] Family Medicine 07/02/24 Loly Calderon PA-C 500 [place] [address] Physician Cheese Cutter Gastroenterology 07/02/24 Galo Gill MD Assigned Heart and Vascular Provider 07/30/24 Robe Calero MD 500 [place], [place] 154025 Assigned Surgical Provider 09/30/24 10/27/24 Robe Calero MD 500 [place] [address] Assigned Dermatology Provider 10/28/24 Loly Calderon PA-C 500 [place], [place] 122335 Assigned Gastroenterology Provider 10/28/24 documented as of this encounter
--- OUTSIDE RECORDS SUMMARY | 2025-03-10 23:39 | XMS_ITS | Encounter Summary ---
Author Organization [facility] Address [address] [place] [address]. [place] [address] Care Team Providers Care Creative Producer Name Role Phone Corinna Rodriges MD Primary Care Provider Corinna Rodriges MD Unavailable [phone] Galo Gill MD Unavailable Unavailab Arelis Carrasco PA-C Unavailable [phone] Corinna Rodriges MD Unavailable [phone] Loly Calderon PA-C Unavailable [phone] Galo Gill MD Unavailable Unavailab Robe Marshall MD Unavailable Robe Calero MD Unavailable Loly Calderon PA-C Unavailable [phone] Encounter Details Date Type Department Care Team (Late st Contact Info) Description 10/09/2024 [facility] [address] [place] [address] [facility] Social History Tobacco Use Types Packs/Day Years [...] re latives? Twice a week 06/27/2024 Attends Shinto Services Not on file 06/27 Active Member of Clubs or Organizations Not on f ile 06/27/2024 Attends Club or Organization Meetings Not on karey e 06/27/2024 Marital Status Not on file 06/27/2024 PHQ-2 Answer Date Recorded PHQ-2 Score 0 06/27/2024 [facility] - Occupational Stress [...] exercise at this level? 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 [address] [place] [address] Loly Calderon PA-C [address] [place], [place] [phone] 05/21/2025 12:00 PM CDT Virtual Visit [facility] [address] [place] [phone] Corinna Rodriges MD [address] [place] [address] Delmi Garcia GC [address] [place] [address] [phone] documented as of this encounter Visit Diagnoses Not on filedocumented in this encounter Additional Health Concerns Assessment Noted Time PHQ-9 Depression Total Score: 1 06/27/20 24 9:36 AM HIDE BUFFER documented as of this encounter Care Teams Creative Producer Relationship Specialty Start Date End Date Corinna Rodriges MD [address] [place] [address] PCP - General 03/04/08 Corinna Rodriges MD [address] [place] [address] Assigned PCP 12/05/13 Galo Gill MD [address] [place] [address] Cardiovascular Disease 04/19/24 12/19/24 Arelis Vega PA-C [address] [place] [address] Physician Supervisor Electronic Testing 07/02/24 Corinna Rodriges MD [address] [place] [address] Family Medicine 07/02/24 Loly Calderon PA-C [address] [place] [address] Physician Supervisor Electronic Testing Gastroenterology 07/02/24 Galo Gill MD Assigned Heart and Vascular Provider 07/30/24 Robe Calero MD 500 [place] [address] Assigned Surgical Provider 09/30/24 10/27/24 Robe Calero MD [address] [place] [address] Assigned Dermatology Provider 10/28/24 Loly Calderon PA-C 500 [place], [place] 606695 Assigned Gastroenterology Provider 10/28/24 documented as of this encounter
--- OUTSIDE RECORDS SUMMARY | 2025-03-10 23:39 | XMS_ITS | Encounter Summary ---
Author Organization [place] Address [address] [place] [address] Care Team Providers Care Ultimate Hoops Scoreboard Operator Name Role Phone Corinna Rodriges MD Primary Care Provider Corinna Rodriges MD Unavailable [phone] Corinna Rodriges MD Unavailable [phone] Galo Ross MD Unavailable [phone] Sohail Olmstead MD Unavailable [phone] Galo Gill MD Unavailable Unavailab Arelis Carrasco PA-C Unavailable [phone] Corinna Rodriges MD Unavailable [phone] Loly Calderon PA-C Unavailable [phone] Galo Gill MD Unavailable Unavailab Robe Marshall MD Unavailable Robe Calero MD Unavailable Loly Calderon PA-C Unavailable [phone] Encounter Details Date Type Department Care Team (Late st Contact Info) Description 08/17/2018 [facility] [address] [address] Mahi Russo, KESHAWN Social History [...] Assigned at Female 08/08/2019 10:05 AM BILINGUAL LOAN PROCESSOR Legal Sex Female 3:14 AM BILINGUAL LOAN PROCESSOR Gender Identity Female 08/08/2019 10:05 AM BILINGUAL LOAN PROCESSOR Sexual Orientation Straight 08/08/2019 10 :05 AM BILINGUAL LOAN PROCESSOR Occupation Industry Job Start Date Job End Date 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[employer] Not on file Not on karey e Not on file documented as of this encounter Plan of Treatment Upcoming Encounters Date Type Department Care Team (Late st Contact Info) Description 03/21/2025 12:15 PM CDT Virtual Visit [facility] [address] [place] [phone] Loly Calderon PA-C 500 [place], [place] 712915 05/21/2025 12:00 PM CDT Virtual Visit [facility] [address] [place] [phone] Corinna Rodriges MD [address] [place], [place] 812782 Delmi Garcia GC [address] [place] [address] [phone] documented as of this encounter Visit Diagnoses Not on filedocumented in this encounter Additional Health Concerns Infection Onset Date Last Indicated Resolved Time Rule Out COVID-19 08/28/2021 08/28/2021 08/29/2021 5:48 PM BILINGUAL LOAN PROCESSOR Rule Out COVID-19 09/30/2021 09/30/2021 09/30/2021 10:11 PM BILINGUAL LOAN PROCESSOR Rule Out COVID-19 03/30/2024 03/30/2024 03/30/2024 7:56 PM CDT Assessment Noted Time PHQ-9 Depression Total Score: 6 07/17/20 18 2:20 PM BILINGUAL LOAN PROCESSOR documented as of this encounter Care Teams Ultimate Hoops Scoreboard Operator Relationship Specialty Start Date End Date Corinna Rodriges MD [address] [place] [address] [id number] PCP - General 03/04/08 Corinna Rodriges MD [address] [place] [address] 702242 PCP - Assigned PCP 12/05/13 10/10/18 Corinna Rodriges MD [address] [place] [address] 597082 Assigned PCP 12/05/13 Galo Ross MD [address] 246664 Assigned OBGYN Provider 08/30/21 Sohail Olmstead MD [address] [place] [address] Assigned Surgical Provider 01/22/23 07/29/24 Galo Gill MD [address] [place] [address] Cardiovascular Disease 04/19/24 12/19/24 Arelis Vega PA-C [address] [place] [address] Physician Airport Location Manager 07/02/24 [place] [address] [place] [address] Family Medicine 07/02/24 Loly Calderon PA-C 500 [place] [address] Physician Airport Location Manager Gastroenterology 07/02/24 Galo Gill MD Assigned Heart and Vascular Provider 07/30/24 Robe Calero MD 500 [place], [place] 170155 Assigned Surgical Provider 09/30/24 10/27/24 Robe Calero MD 500 [place] [address] Assigned Dermatology Provider 10/28/24 Loly Calderon PA-C 500 [place], [place] 798325 Assigned Gastroenterology Provider 10/28/24 documented as of this encounter
--- OUTSIDE RECORDS SUMMARY | 2025-03-10 23:39 | XMS_ITS | Clinical Summary ---
Author Organization [facility] Address [address] [place] [address] Care Team Providers Care Electric Motor Repairer Name Role Phone Shyam Rodriges MD Primary Care Provider Shyam Rodriges MD Unavailable [phone] Arelis Vega PA-C Unavailable [phone] Shyam Rodriges MD Unavailable [phone] Loly Calderon PA-C Unavailable [phone] Galo Gill MD Unavailable Unavailab Robe Marshall MD Unavailable Loly Calderon PA-C Unavailable [phone] Allergies Active Allergy Reactions Criticality Noted Date Comments Minocycline Hives 03/15/2012 Lupus type symptoms Morphine And Codeine Nausea and Vomiting 2007 Medications Fluticasone Propionate (FLONASE ALLERGY RELIEF NA) Active amphetamine-dextro amphetamine (ADDERALL XR) 30 MG 24 hr capsuleIndications :Controlled substance agreement signed,Attention deficit hyperactivity disorder, predominantly inattentive type Take 1 capsule (30 mg) by mouth daily. 30 capsule 5 Active Active Problems Problem Noted Date Diagnosed [...] xr 20mg #10/month 01/31/2015 Overview (08/13/2019): Checked HOSPITAL TECHNICIAN website - no unusal use. ---[employer] August 13, 2019 Major depressive disorder, r [...] Overview (06/27/2024): Patient is followed by SHYAM RODRIGES for ongoing prescription of stimulants. All refills [...] on file but diagnosis not confirmed Last [facility] website verification: done on 06/27/2024 [email or web address] Other acne 03/03/2007 Resolved Problems Problem Noted [...] Encounters Date Type Department Care Team Description 03/10/2025 MyC Refill [address] [address] Shyam Rodriges MD Refill Request 03/04/2025 6:00 PM CDT Office Visit [facility] [place] [address] [place] [phone] Beatrice Pinon APRN PLANT TENDER Dysuria (Primary Dx) 03/04/2025 Travel 02/06/2025 MyC Refill [address] [address] Shyam Rodriges MD Refill Request from Last 3 Months Immunizations Immunization Administration [...] re latives? Twice a week 06/27/2024 Attends Christian Services Not on file 06/27 Active Member of Clubs or Organizations Not on f ile 06/27/2024 Attends Club or Organization Meetings Not on karey e 06/27/2024 Marital Status Not on file 06/27/2024 PHQ-2 Answer Date Recorded PHQ-2 Score 0 06/27/2024 [facility] of Occupat ional Health - Occupational Stress [...] exercise at this level? 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 file [...] [facility] [address] [place] [address] Loly Calderon PA-C [address] [place], [place] [phone] 05/21/2025 12:00 PM CDT Virtual Visit [facility] [address] [place] [address] Shyam Rodriges MD [address] [place], [place] [address] Delmi Garcia, [address] [phone] Health Maintenance Due Date Last Done Comments [...] 01/09/2008, 07/09, 03/03/2007 DEPRESSION ACTION PLAN Completed 8, 12/30/2017, 12/06/2016, Additional history exists HIV SCREENING [...] COMPREHENSIVE METABOLIC PANEL Routine 06/27/2024 5:11 PM NATIONAL PARK RANGER CARDIOVASCULAR SCREENING; LDL GOAL LESS THAN 160 [...] LAB - URINE ORDERABLES Final Res ult [facility] [place] [facility] [address] [facility] (no room number, 1st floor of clinic) [place] [address], [facility] * (ABNORMAL) UA with Microscopic [...] 03/04/2025 5:58 PM CDT [facility] Specific [place] Urine 1.010 1.003 - 1.035 03/04/2025 5:58 [...] 03/04/2025 5:53 PM CDT us Capri Bergman BREEDER SERVICE TECHNICIAN LAB - URINE ORDERABLES Final Res ult LABORATORY [facility] [address] [facility] (no room number, 1st floor of clinic) [place] [address], [facility] * Comprehensive metabolic panel (BMP + Alb, Alk Phos, ALT, AST, Total. Bili, TP) (06/27/2024 5:11 PM NATIONAL PARK RANGER) Sodium 138 135 - 145 mmol/L 06/28/2024 7:08 PM NATIONAL PARK RANGER [facility] Potassium 3.7 3.4 - 5.3 mmol/L 06/28/2024 7:08 PM NATIONAL PARK RANGER [facility] Carbon Dioxide (CO2) 28 22 - 29 mmol/L 06/28/2024 7:08 PM NATIONAL PARK RANGER [facility] Anion Gap 9 7 - 15 mmol/L 06/28/2024 7:08 PM NATIONAL PARK RANGER [facility] Urea Nitrogen 12.4 6.0 - 20.0 mg/dL 06/28/2024 7:08 PM NATIONAL PARK RANGER [facility] Creatinine 0.73 0.51 - 0.95 mg/dL 06/28/2024 7:08 PM NATIONAL PARK RANGER [facility] GFR Estimate >90 >60 mL/min/1.7 3m2 06/28/2024 7:08 PM NATIONAL PARK RANGER [facility] Comment:eGFR calculated us2020 CKD-EPI equation. Calcium 9.4 8.8 - 10.4 mg/dL 06/28/2024 7:08 PM NATIONAL PARK RANGER [facility] Comment:Reference intervals for this test were updated on 02/21/2024 to reflect our healthy population more accurately. There may be differences in the flagging of prior results with similar values performed with this method. Those prior results can be interpreted in the context of the updated reference intervals. Chloride 101 98 - 107 mmol/L 06/28/2024 7:08 PM NATIONAL PARK RANGER [facility] Glucose 82 70 - 99 mg/dL 06/28/2024 7:08 PM NATIONAL PARK RANGER [facility] Alkaline Phosphatase 66 40 - 150 U/L 06/28/2024 7:08 PM NATIONAL PARK RANGER [facility] AST 28 0 - 45 U/L 06/28/2024 7:08 PM NATIONAL PARK RANGER [facility] ALT 36 0 - 50 U/L 06/28/2024 7:08 PM NATIONAL PARK RANGER [facility] Protein Total 7.1 6.4 - 8.3 g/dL 06/28/2024 7:08 PM NATIONAL PARK RANGER [facility] Albumin 4.3 3.5 - 5.2 g/dL 06/28/2024 7:08 PM NATIONAL PARK RANGER [facility] Bilirubin Total 0.4 <=1.2 mg/dL 06/28/2024 7:08 PM NATIONAL PARK RANGER [facility] Patient Fasting > 8hrs? Unknown 06/28/2024 7:08 PM NATIONAL PARK RANGER [facility] Blood BLOOD SPECIMEN / Unknown Venipuncture / Unknown 06/27/2024 5:11 PM NATIONAL PARK RANGER 06/27/2024 5:11 PM NATIONAL PARK RANGER Shyam Rodriges MD LAB - BLOOD ORDERABLES Final Result [facility] [address] [facility] [address] [facility], Room [address] [place] [address], [facility] * Pap screen with HPV [...] component of this testing was completed at [facility] 01/25/2022 2:47 PM CDT SPECIALTY LABS Brushing CERVIX UTERI STRUCTURE / Unknown Non-blood Collection / Unknown 01/21/2022 1:18 PM CDT 01/21/2022 1:46 PM CDT us Shyam DELGADO - ANTONIO ROCHA Final R esult SPECIALTY LABS [facility] [address] [facility], [address] [place] [address], [place] [phone] * HPV High Risk Types DNA Cervical (01/21/2022 1:18 PM CDT) Other HR HPV Negative Negative 01/27/2022 4:56 PM CDT [facility]ST[facility] HPV16 DNA Negative Negative 01/27/2022 4:56 PM CDT [facility]ST[facility] HPV18 DNA Negative Negative 01/27/2022 4:56 PM CDT [facility] DIAGNOSTICS FINAL DIAGNOSIS This patient's sample is negative for HPV DNA. This test was developed and its performance characteristics determined by the [facility], Molecular Diagnostics Laboratory. It has not been [...] 1:18 PM CDT 01/26/2022 9:26 AM CDT Shyam Rodriges MD LAB - BLOOD ORDERABLES Final Result MOLECULAR DIAGNOSTICS Molecular Diagnostics [address] [facility], Room [address] [place] [address], [facility] [phone] * HIV Antigen Antibody Combo (05/29/2021 3:39 PM CDT) HIV Antigen Antibody Combo Nonreactive Nonreactive 05/30/2021 3:34 PM CDT [facility] Comment:HIV-1 p24 Ag & HIV-1 /HIV-2 Ab Not Detected Blood STRUCTURE OF RIGHT UPPER LIMB / Unknown Venipuncture / Unknown 05/29/2021 3:39 PM CDT 05/29/2021 3:40 PM CDT Shyam Rodriges MD LAB - BLOOD ORDERABLES Final Result [facility] Specialty Core Lab [address] [facility], [address] [place] [address], [facility] [phone] from Last 3 Months or Most Recently Relevant to Health Maintenance [place] Advance Directives For more information, please contact: [phone] * Full Code (Latest Code Status on File) Date Activated Date Inactivated Comments 12/06/2021 5:12 AM 12/08/2021 4:48 PM All basic and advanced life-sustaining interventions are performed as appropriate Question Answer Comments Code status determined by: Discussion with patie nt/ legal decision maker * Full Code Date Activated Date Inactivated Comments 12/04/2021 3:31 PM 12/06/2021 4:50 AM All basic and advanced life-sustaining interventions are performed as appropriate Question Answer Comments Code status determined by: Discussion with patie nt/ legal decision maker Care Teams Electric Motor Repairer Relationship Specialty Start Date End Date Shyam Rodriges MD [address] [place] [address] [id number] PCP - General 03/04/08 Shyam Rodriges MD [address] [place] [address] [phone] Assigned PCP 12/05/13 Arelis Vega PA-C [address] [place] [address] Physician Rfid Strategist 07/02/24 Shyam Rodriges MD [address] [place] [address] Family Medicine 07/02/24 Loly Calderon PA-C [address] [place] [address] Physician Rfid Strategist Gastroenterology 07/02/24 Galo Gill MD Assigned Heart and Vascular Provider 07/30/24 Robe Calero MD [address] [place], [place] 178305 Assigned Dermatology Provider 10/28/24 Loly Calderon PA-C [address] [place], [place] 738815 Assigned Gastroenterology Provider 10/28/24
--- OUTSIDE RECORDS SUMMARY | 2025-03-10 23:39 | XMS_ITS | Encounter Summary ---
Author Organization [facility] Address [address] [place] [address]. [place] [address] Care Team Providers Care Information Lead Name Role Phone Corinna Rodriges MD Primary Care Provider Corinna Rodriges MD Unavailable [phone] Galo Gill MD Unavailable Unavailab Arelis Carrasco PA-C Unavailable [phone] Corinna Rodriges MD Unavailable [phone] Loly Calderon PA-C Unavailable [phone] Galo Gill MD Unavailable Unavailab Robe Marshall MD Unavailable Loly Calderon PA-C Unavailable [phone] Encounter Details Date Type Department Care Team (Late st Contact Info) Description 12/07/2024 [facility] [address] [address] [place] Social History Tobacco [...] re latives? Twice a week 06/27/2024 Attends Anglican Services Not on file 06/27 Active Member of Clubs or Organizations Not on f ile 06/27/2024 Attends Club or Organization Meetings Not on karey e 06/27/2024 Marital Status Not on file 06/27/2024 PHQ-2 Answer Date Recorded PHQ-2 Score 0 06/27/2024 [facility] - Occupational Stress Questionnaire Answer Date [...] exercise at this level? 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 Not on karey e Not on file documented as of this encounter Plan of Treatment Upcoming Encounters Date Type Department Care Team (Late st Contact Info) Description 03/21/2025 12:15 PM CDT Virtual Visit [facility] [address] [place] [address] Loly Calderon PA-C [address] [place], [place] [phone] 05/21/2025 12:00 PM CDT Virtual Visit [facility] [address] [place] [address] Corinna Rodriges MD [address] [place], [place] 476652 Delmi Garcia GC [address] [place] [address]995 documented as of this encounter Visit Diagnoses Not on filedocumented in this encounter Additional Health Concerns Assessment Noted Time PHQ-9 Depression Total Score: 1 06/27/20 24 9:36 AM MUSIC PROFESSOR documented as of this encounter Care Teams Information Lead Relationship Specialty Start Date End Date Corinna Rodriges MD [address] [place] [address] [phone] PCP - General 03/04/08 Corinna Rodriges MD [address] [place] [address] [phone] Assigned PCP 12/05/13 Galo Gill MD [address] [place] [address] Cardiovascular Disease 04/19/24 12/19/24 Arelis Vega PA-C [address] [place] [address] Physician Curb Worker 07/02/24 Corinna Rodriges MD [address] [place] [address] Family Medicine 07/02/24 Loly Calderon PA-C [address] [place] [address] Physician Curb Worker Gastroenterology 07/02/24 Galo Gill MD Assigned Heart and Vascular Provider 07/30/24 Robe Calero MD [address] [place], [place] [phone] Assigned Dermatology Provider 10/28/24 Loly Calderon PA-C [address] [place] [address] Assigned Gastroenterology Provider 10/28/24 documented as of this encounter
--- OUTSIDE RECORDS SUMMARY | 2025-03-10 23:39 | XMS_ITS | Encounter Summary ---
Author Organization [facility] Address [address] [place] [address]. [place] [address] Care Team Providers Care Relocation Coordinator Name Role Phone Corinna Rodriges MD Primary Care Provider Corinna Rodriges MD Unavailable [phone] Arelis Vega PA-C Unavailable [phone] Corinna Rodriges MD Unavailable [phone] Loly Calderon PA-C Unavailable [phone] Galo Gill MD Unavailable Unavailab Robe Marshall MD Unavailable Loly Calderon PA-C Unavailable [phone] Reason for Visit * Reason Onset Date Comments Refill Request 02/06/2025 Encounter Details Date Type Department Care Team (Late st Contact Info) Description 02/06/2025 MyC Refill [address] [address] Corinna Rodriges MD [address] [place] [address] Refill Request Social History Tobacco Use [...] re latives? Twice a week 06/27/2024 Attends Rastafarian Services Not on file 06/27 Active Member of Clubs or Organizations Not on f ile 06/27/2024 Attends Club or Organization Meetings Not on karey e 06/27/2024 Marital Status Not on file 06/27/2024 PHQ-2 Answer Date Recorded PHQ-2 Score 0 06/27/2024 [facility] of Occupat ional Health - Occupational Stress [...] exercise at this level? 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 The [facility] ([facility] is in a dense urban area with multiple transportation and parking options. You may wish to review options for train conductor service and self-parking in more detail on the [facility]???s website at [email or web address]. 05/21/2025 12:00 PM NEW ONCOLOGY 75 min [facility] Delmi Garcia GC Location Instructions: Due to road construction on , travel times to this location may be longer than usual. Please plan for extra travel time and check the [facility] project website for delay, closure, and detour information. The [facility] ([facility]) is in a dense urban area with multiple transportation and parking options. You may wish to review options for train conductor service and self-parking in more detail on the [facility]s website at [email or web address]. This appointment is in a hospital-based location. Before your visit, you may want to check with your insurance company for coverage and referral options, including cost differences between services provided indifferent clinic settings. For more information visit this link on the [employer] Website: [email or web address] documented in this encounter Plan of Treatment Upcoming Encounters Date Type Department Care Team ([facility] st Contact Info) Description 03/21/2025 12:15 PM CDT Virtual Visit [facility] [address] [place] [address] Loly Calderon PA-C [address] [place] [address] 05/21/2025 12:00 PM CDT Virtual Visit [facility] [address] [place] [phone] Corinna Rodriges MD [address] [place] [address] [phone] Delmi Garcia GC [address] [place], [place] 292615 documented as of this encounter Visit Diagnoses Diagnosis Controlled substance agreement signed-06/27/2024-ok for adderall XR 30mg #25 /month &Adderall xr 20mg #10/month Encounter for long-term (current) use of other medications Attention deficit hyperactivity disorder, 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/27/2024 documented in this encounter Additional Health Concerns Assessment Noted Time PHQ-9 Depression Total Score: 1 06/27/20 24 9:36 AM BROILER MANAGER documented as of this encounter Care Teams Relocation Coordinator Relationship Specialty Start Date End Date Corinna Rodriges MD [address] [place] [address] PCP - General 03/04/08 Corinna Rodriges MD [address] [place] [address] Assigned PCP 12/05/13 Arelis Vega PA-C [address] [place] [address]32 Physician Home Care Music Therapist 07/02/24 Corinna Rodriges MD [address] [place] [address] Family Medicine 07/02/24 Loly Calderon PA-C [address] [place] [address] Physician Home Care Music Therapist Gastroenterology 07/02/24 Galo Gill MD Assigned Heart and Vascular Provider 07/30/24 Robe Calero MD [address] [place], [place] 945265 Assigned Dermatology Provider 10/28/24 Loly Calderon PA-C [address] [place], [place] 543845 Assigned Gastroenterology Provider 10/28/24 documented as of this encounter
--- OUTSIDE RECORDS SUMMARY | 2025-03-10 23:39 | XMS_ITS | Patient Health Record ---
Author Organization 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 Problems Problem Type SNOMED Code ICD Code Onset Dates Problem Status W/U Status Risk Notes Problem Nasal congestion (28936769) Nasal congestion (R09.81) Active confirmed Problem Deviated nasal septum (275078646) Nasal septal deviation (J34.2) Active confirmed Problem Ear fullness, bilateral (H93.8X3) Active confirmed Plan Of Treatment No Information Insurance Providers Payer Name Payer Address Payer Phone Subscriber Number Group Number Insured Name Patient Relationship to Insured Coverage Start Date Coverage End Date [facility] [address] [address] [place] [address] [id number] Chel Griggs Self - patient is the insured Medical (General) History Surgical History Surgery Date(Month/Year)
--- OUTSIDE RECORDS SUMMARY | 2025-03-10 23:39 | XMS_ITS | Encounter Summary ---
Author Organization [facility] Address [address] [place] [address]. [place] [address] Care Team Providers Care Unit Clerk Name Role Phone Corinna Rodriges MD Primary Care Provider Corinna Rodriges MD Unavailable [phone] Arelis Vega PA-C Unavailable [phone] Corinna Rodriges MD Unavailable [phone] Loly Calderon PA-C Unavailable [phone] Galo Gill MD Unavailable Unavailab Robe Marshall MD Unavailable Loly Calderon PA-C Unavailable [phone] Reason for Visit * Reason Onset Date Comments Refill Request 03/10/2025 Encounter Details Date Type Department Care Team (Late st Contact Info) Description 03/10/2025 MyC Refill [address] [address] Corinna Rodriges MD [address] [place] [address] Refill Request Social History Tobacco Use [...] re latives? Twice a week 06/27/2024 Attends Oriental Orthodox Services Not on file 06/27 Active Member of Clubs or Organizations Not on f ile 06/27/2024 Attends Club or Organization Meetings Not on karey e 06/27/2024 Marital Status Not on file 06/27/2024 PHQ-2 Answer Date Recorded PHQ-2 Score 0 06/27/2024 [facility] of Occupat ional Health - Occupational Stress [...] exercise at this level? 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 e Not on file documented as of this encounter Plan of Treatment Upcoming Encounters Date Type Department Care Team (Late st Contact Info) Description 03/21/2025 12:15 PM CDT Virtual Visit [facility] [address] [place] [address] Loly Calderon PA-C [address] [place], [place] [phone] 05/21/2025 12:00 PM CDT Virtual Visit [facility] [address] [place] [address] [place] [address] [place] [address] [phone] Delmi Garcia GC [address] [place] [address] [phone] documented as of this encounter Visit Diagnoses Diagnosis Controlled substance agreement signed-06/27/2024-ok for adderall XR 30mg #25 /month &Adderall xr 20mg #10/month Encounter for long-term (current) use of other medications Attention deficit hyperactivity disorder, 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/27/2024 documented in this encounter Additional Health Concerns Assessment Noted Time PHQ-9 Depression Total Score: 1 06/27/20 9:36 AM FLAT SCREEN WORKER documented as of this encounter Care Teams Unit Clerk Relationship Specialty Start Date End Date Corinna Rodriges MD [address] [place] [address] PCP - General 03/04/08 Corinna Rodriges MD [address] [place] [address] 799182 Assigned PCP 12/05/13 Arelis Vega PA-C [address] [place] [address] [phone] Physician Reuse Technician 07/02/24 Corinna Rodriges MD [address] [place] [address] Family Medicine 07/02/24 Loly Calderon PA-C [address] [place], [place] 407195 Physician Reuse Technician Gastroenterology 07/02/24 Galo Gill MD Assigned Heart and Vascular Provider 07/30/24 Robe Calero MD [address] [place], [place] 6[address] Assigned Dermatology Provider 10/28/24 Loly Calderon PA-C [address] [place] [address] Assigned Gastroenterology Provider 10/28/24 documented as of this encounter
--- OUTSIDE RECORDS SUMMARY | 2025-03-10 23:39 | XMS_ITS | Encounter Summary ---
Author Organization [facility] Address [address] [place] [address]. [place] [address] Care Team Providers Care Bilingual Manager Name Role Phone Corinna Rodriges MD Primary Care Provider Corinna Rodriges MD Unavailable [phone] Arelis Vega PA-C Unavailable [phone] Corinna Rodriges MD Unavailable [phone] Loly Calderon PA-C Unavailable [phone] Galo Gill MD Unavailable Unavailab Robe Marshall MD Unavailable Loly Calderon PA-C Unavailable [phone] Encounter Details Date Type Department Care [...] re latives? Twice a week 06/27/2024 Attends Mosque Services Not on file 06/27 Active Member of Clubs or Organizations Not on f ile 06/27/2024 Attends Club or Organization Meetings Not on karey e 06/27/2024 Marital Status Not on file 06/27/2024 PHQ-2 Answer Date Recorded PHQ-2 Score 0 06/27/[address] [facility] - Occupational Stress Questionnaire Answer Date [...] exercise at this level? 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 Not on karey e Not on file documented as of this encounter Plan of Treatment Upcoming Encounters Date Type Department Care Team (Late st Contact Info) Description 03/21/2025 12:15 PM CDT Virtual Visit [facility] [address] [place] [address] Loly Calderon PA-C [address] [place] [address] [phone] 05/21/2025 12:00 PM CDT Virtual Visit [facility] [address] [place] [address] [phone] Corinna Rodriges MD [address] [place] [address] [phone] Delmi Garcia GC [address] [place] [address] [phone] documented as of this encounter Visit Diagnoses Not on filedocumented in this encounter Additional Health Concerns Assessment Noted Time PHQ-9 Depression Total Score: 1 06/27/20 24 9:36 AM ANESTHESIOLOGIST ATTENDING documented as of this encounter Care Teams Bilingual Manager Relationship Specialty Start Date End Date Corinna Rodriges MD [address] [place] [address] 78707 PCP - General 03/04/08 [place] [address] [place] [address] 56514 Assigned PCP 12/05/13 Arelis Vega PA-C [address] [place] [address] 40781 Physician Billet Heater 07/02/24 Corinna Rodriges MD [address] [place] [address] 71382 Family Medicine 07/02/24 Loly Calderon PA-C [address] [place] [address] 51273 Physician Billet Heater Gastroenterology 07/02/24 Galo Gill MD Assigned Heart and Vascular Provider 07/30/24 Robe Calero MD [address] [place] [address] Assigned Dermatology Provider 10/28/24 Loly Calderon PA-C 500 [place] [address] Assigned Gastroenterology Provider 10/28/24 documented as of this encounter
--- OUTSIDE RECORDS SUMMARY | 2025-03-10 23:39 | XMS_ITS | Encounter Summary ---
Author Organization [facility] Address [address] [place] [address]. [place] [address] Care Team Providers Care Rental Car Deliverer Name Role Phone Corinna Rodriges MD Primary Care Provider Corinna Rodriges MD Unavailable [phone] Galo Gill MD Unavailable Unavailab Arelis Carrasco PA-C Unavailable [phone] Corinna Rodriges MD Unavailable [phone] Loly Calderon PA-C Unavailable [phone] Galo Gill MD Unavailable Unavailab Robe Marshall MD Unavailable Loly Calderon PA-C Unavailable [phone] Encounter Details Date Type Department Care Team (Late st Contact Info) Description 11/09/2024 [facility] [address] 4th [place] [address] Esperanza Nelson LPN Social History [...] re latives? Twice a week 06/27/2024 Attends Latter Day Services Not on file 06/27 Active Member of Clubs or Organizations Not on f ile 06/27/2024 Attends Club or Organization Meetings Not on karey e 06/27/2024 Marital Status Not on file 06/27/2024 PHQ-2 Answer Date Recorded PHQ-2 Score 0 06/27/2024 [facility] - Occupational Stress Questionnaire Answer [...] exercise at this level? 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 Not on karey e Not on file documented as of this encounter Plan of Treatment Upcoming Encounters Date Type Department Care Team (Late st Contact Info) Description 03/21/2025 12:15 PM CDT Virtual Visit [facility] [address] [place] [address] Loly Calderon PA-C [address] [place], [place] [phone] 05/21/2025 12:00 PM CDT Virtual Visit [facility] [address] [place] [address] Corinna Rodriges MD [address] [place], [place] [phone] Delmi Garcia GC [address] [place] [address] [phone] documented as of this encounter Visit Diagnoses Not on filedocumented in this encounter Additional Health Concerns Assessment Noted Time PHQ-9 Depression Total Score: 1 06/27/20 9:36 AM DIETETICS DIRECTOR documented as of this encounter Care Teams Rental Car Deliverer Relationship Specialty Start Date End Date Corinna Rodriges MD [address] [place] [address] 36162 PCP - General 03/04/08 Corinna Rodriges MD [address] [place] [address] 96064 Assigned PCP 12/05/13 Galo Gill MD [address] [place] [address] 01618 Cardiovascular Disease 04/19/24 12/19/24 Arelis Vega PA-C [address] [place] [address] 06275 Physician Knockout Worker 07/02/24 Corinna Rodriges MD [address] [place] [address] 68462 Family Medicine 07/02/24 Loly Calderon PA-C [address] [place] [address] 33152 Physician Knockout Worker Gastroenterology 07/02/24 Galo Gill MD Assigned Heart and Vascular Provider 07/30/24 Robe Calero MD [address] [place] [address] Assigned Dermatology Provider 10/28/24 Loly Calderon PA-C [address] [place] [address] 68261 Assigned Gastroenterology Provider 10/28/24 documented as of this encounter
--- OUTSIDE RECORDS SUMMARY | 2025-03-10 23:39 | XMS_ITS | Encounter Summary ---
Author Organization [facility] Address [address] [place] [address]. [place] [address] Care Team Providers Care Software Test Automation Engineer Name Role Phone Corinna Rodriges MD Primary Care Provider Corinna Rodriges MD Unavailable [phone] Galo Gill MD Unavailable Unavailab Arelis Carrasco PA-C Unavailable [phone] Corinna Rodriges MD Unavailable [phone] Loly Calderon PA-C Unavailable [phone] Galo Gill MD Unavailable Unavailab Robe Marshall MD Unavailable Loly Calderon PA-C Unavailable [phone] Encounter Details Date Type Department Care Team (Late st Contact Info) Description 11/08/2024 [facility] [address] 4th [place] [address] Aishwarya Eli, RN Social History [...] re latives? Twice a week 06/27/2024 Attends Worship Services Not on file 06/27 Active Member of Clubs or Organizations Not on f ile 06/27/2024 Attends Club or Organization Meetings Not on karey e 06/27/2024 Marital Status Not on file 06/27/2024 PHQ-2 Answer Date Recorded PHQ-2 Score 0 06/27/2024 [facility] - Occupational Stress Questionnaire Answer [...] exercise at this level? 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 Not on karey e Not on file documented as of this encounter Plan of Treatment Upcoming Encounters Date Type Department Care Team (Late st Contact Info) Description 03/21/2025 12:15 PM CDT Virtual Visit [facility] [address] [place] [address] Loly Calderon PA-C [address] [place], [place] [phone] 05/21/2025 12:00 PM CDT Virtual Visit [facility] [address] [place] [address] Corinna Rodriges MD [address] [place], [place] [phone] Delmi Garcia GC [address] [place] [address] [phone] documented as of this encounter Visit Diagnoses Not on filedocumented in this encounter Additional Health Concerns Assessment Noted Time PHQ-9 Depression Total Score: 1 06/27/20 9:36 AM LINUX SYSTEMS ADMINISTRATOR documented as of this encounter Care Teams Software Test Automation Engineer Relationship Specialty Start Date End Date Corinna Rodriges MD [address] [place] [address] 74389 PCP - General 03/04/08 Corinna Rodriges MD [address] [place] [address] 32569 Assigned PCP 12/05/13 Galo Gill MD [address] [place] [address] 13410 Cardiovascular Disease 04/19/24 12/19/24 Arelis Vega PA-C [address] [place] [address] 20605 Physician Shoe Sticks Repairer 07/02/24 Corinna Rodriges MD [address] [place] [address] 04529 Family Medicine 07/02/24 Loly Calderon PA-C [address] [place] [address] 93008 Physician Shoe Sticks Repairer Gastroenterology 07/02/24 Galo Gill MD Assigned Heart and Vascular Provider 07/30/24 Robe Calero MD [address] [place] [address] Assigned Dermatology Provider 10/28/24 Loly Calderon PA-C [address] [place] [address] 10460 Assigned Gastroenterology Provider 10/28/24 documented as of this encounter
--- OUTSIDE RECORDS SUMMARY | 2025-03-10 23:39 | XMS_ITS | Encounter Summary ---
Author Organization [facility] Address [address] [place] [address] Care Team Providers Care Digital Forensics Examiner Name Role Phone Corinna Rodriges MD Primary Care Provider Corinna Rodriges MD Unavailable [phone] Corinna Rodriges MD Unavailable [phone] Galo Ross MD Unavailable [phone] Sohail Olmstead MD Unavailable [phone] Galo Gill MD Unavailable Unavailab Arelis Carrasco PA-C Unavailable [phone] Corinna Rodriges MD Unavailable [phone] Loly Calderon PA-C Unavailable [phone] Galo Gill MD Unavailable Unavailab Robe Marshall MD Unavailable Robe Calero MD Unavailable Loly Calderon PA-C Unavailable [phone] Encounter Details Date Type Department Care Team (Late st Contact Info) Description 10/17/2014 [facility] [address] [address] Corinna Rodriges MD [address] [place] [address] Attention deficit disorder with hyperactivity(314.01 ) (Primary Dx) Social History Tobacco Use Types Packs/Day Years Used Date Smoking Tobacco: Never Smokeless Tobacco: Never Alcohol Use Standard Drinks/Week Comments Yes 0 (1 standard drink = 0.6 oz pure alcohol) Occasional wine or beer, no hard liquor Comments No Sex and Gender Information Value Date Recorded Sex Assigned at Female 08/08/2019 10:05 AM PROFESSOR OF PHYSICS Legal Sex Female 3:14 AM PROFESSOR OF PHYSICS Gender Identity Female 08/08/2019 10:05 AM PROFESSOR OF PHYSICS Sexual Orientation Straight 08/08/2019 10 :05 AM PROFESSOR OF PHYSICS Occupation Industry Job Start Date Job End Date [employer]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 Informed pt. Denice Patterson TC * Telephone Encounter - Corinna Rodriges MD - 10/17/2014 12:59 PM CD[facility] * Telephone Encounter - Cyndy Hodge RN - 10/17/2014 11:25 AM CDT Routing refill request to provider for review/approval because: Drug not on the [facility] refill protocol Cyndy Hodge RN [place] Triage documented in this encounter Plan of Treatment Upcoming Encounters Date Type Department Care Team (Late st Contact Info) Description 03/21/2025 12:15 PM CDT Virtual Visit [facility] Gastro[facility]ology Clinic [address] 4th [place] [phone] Loly Calderon PA-C [address] [place] [address] [phone] 05/21/2025 12:00 PM CDT Virtual Visit [facility] [address] [phone] Corinna Rodriges MD [address] [place] [address] 426772 Delmi Garcia GC [address] [place] [address] 505165 documented as of this encounter Visit Diagnoses Diagnosis Attention deficit disorder with hyperactivity(314.01)- Primary Attention deficit disorder with hyperactivity documented in this encounter Additional Health Concerns Infection Onset Date Last Indicated Resolved Time Rule Out COVID-19 08/28/2021 08/28/2021 08/29/2021 5:48 PM PROFESSOR OF PHYSICS Rule Out COVID-19 09/30/2021 09/30/2021 09/30/2021 10:11 PM PROFESSOR OF PHYSICS Rule Out COVID-19 03/30/2024 03/30/2024 03/30/2024 7:56 PM CDT documented as of this encounter Care Teams Digital Forensics Examiner Relationship Specialty Start Date End Date Corinna Rodriges MD [address] [place] [address] 47357 PCP - General 03/04/08 Corinna Rodriges MD [address] [place] [address] 60032 PCP - Assigned PCP 12/05/13 10/10/18 Corinna Rodriges MD [address] [place] [address] 610142 Assigned PCP 12/05/13 Galo Ross MD [address] [address] Assigned OBGYN Provider 08/30/21 Sohail Olmstead MD [address] [place] [address] Assigned Surgical Provider 01/22/23 07/29/24 Galo Gill MD [address] [place] [address] Cardiovascular Disease 04/19/24 12/19/24 Arelis Vega PA-C [address] [place] [address] 09063 Physician Forms Examiner 07/02/24 Corinna Rodriges MD [address] [place] [address] 100322 Family Medicine 07/02/24 Loly Calderon PA-C [address] [place] [address] Physician Forms Examiner Gastroenterology 07/02/24 Galo Gill MD Assigned Heart and Vascular Provider 07/30/24 Robe Calero MD [address] [place] [address] Assigned Surgical Provider 09/30/24 10/27/24 Robe Calero MD [address] [place] [address] Assigned Dermatology Provider 10/28/24 Loly Calderon PA-C [address] [place], [place] 358015 Assigned Gastroenterology Provider 10/28/24 documented as of this encounter
--- OUTSIDE RECORDS SUMMARY | 2025-03-10 23:39 | XMS_ITS | Encounter Summary ---
Author Organization [facility] Address [address] [place] [address] Care Team Providers Care Sex Offender Treatment Professional Name Role Phone Corinna Rodriges MD Primary Care Provider Corinna Rodriges MD Unavailable [phone] Galo Ross MD Unavailable [phone] Sohail Olmstead MD Unavailable [phone] Galo Gill MD Unavailable Unavailab Arelis Carrasco PA-C Unavailable [phone] Corinna Rodriges MD Unavailable [phone] Loly Calderon PA-C Unavailable [phone] Galo Gill MD Unavailable Unavailab Robe Marshall MD Unavailable Robe Calero MD Unavailable Loly Calderon PA-C Unavailable [phone] Reason for Visit * Reason Onset Date Comments Ochart Communication 04/06/2022 Encounter Details Date Type Department Care Team (Late st Contact Info) Description 04/06/2022 [facility] [address] [address] [place] [address] [place] [address] [phone] MyChart Communication Social History Tobacco Use Types Packs/Day Years Used Date Smoking Tobacco: Never Smokeless Tobacco: Never Alcohol Use Standard Drinks/Week Comments Not Currently 0 (1 standard drink = 0.6 oz pur e alcohol) minimal alcohol use. PHQ-2 Answer Date Recorded PHQ-2 Score 0 01/21/2022 [place] Depression Scale Answer Date Recorded Last EPDS Total Score Not on file 12/06/2021 The thought of harming myself has occurred to me . 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 Not on karey e Not on file documented as of this encounter Plan of Treatment Upcoming Encounters Date Type Department Care Team (Late st Contact Info) Description 03/21/2025 12:15 PM CDT Virtual Visit [facility]ology Clinic [address] [place] [phone] Loly Calderon PA-C [address] [place] [address] 145645 05/21/2025 12:00 PM CDT Virtual Visit [facility] [address] [place] [phone] Corinna Rodriges MD [address] [place] [address] [phone] Delmi Garcia [address] [phone] documented as of this encounter Visit Diagnoses Not on filedocumented in this encounter Additional Health Concerns Infection Onset Date Last Indicated Resolved Time Rule Out COVID-19 03/30/2024 03/30/2024 03/30/2024 7:56 PM CDT Assessment Noted Time PHQ-9 Depression Total Score: 3 01/22/20 22 1:32 PM CDT documented as of this encounter Care Teams Sex Offender Treatment Professional Relationship Specialty Start Date End Date Corinna Rodriges MD [address] [place] [address] 228102 PCP - General 03/04/08 Corinna Rodriges MD [address] [place] [address] [phone] Assigned PCP 12/05/13 Galo Ross MD [address] [place] [address] 679354 Assigned OBGYN Provider 08/30/21 Sohail Olmstead MD [address] [place] [address] Assigned Surgical Provider 01/22/23 07/29/24 Galo Gill MD [address] [place] [address] Cardiovascular Disease 04/19/24 12/19/24 Arelis Vega PA-C [address] [place] [address] 65017 Physician Comic Book Designer 07/02/24 Corinna Rodriges MD [address] [place] [address] 07868 Family Medicine 07/02/24 Loly Calderon PA-C [address] [place] [address] Physician Comic Book Designer Gastroenterology 07/02/24 Galo Gill MD Assigned Heart and Vascular Provider 07/30/24 Robe Calero MD [address] [place] [address] Assigned Surgical Provider 09/30/24 10/27/24 Robe Calero MD [address] [place], [place] 424375 Assigned Dermatology Provider 10/28/24 Loly Calderon PA-C [address] [place] [address] Assigned Gastroenterology Provider 10/28/24 documented as of this encounter
--- OUTSIDE RECORDS SUMMARY | 2025-03-10 23:40 | XMS_ITS | Encounter Summary ---
Author Organization [facility] Address [address] [place] [address] Care Team Providers Care Personal Banker Name Role Phone Corinna Rodriges MD Primary Care Provider Corinna Rodriges MD Unavailable [phone] Sohail Olmstead MD Unavailable [phone] Galo Gill MD Unavailable Unavailab Arelis Carrasco PA-C Unavailable [phone] Corinna Rodriges MD Unavailable [phone] Loly Calderon PA-C Unavailable [phone] Galo Gill MD Unavailable Unavailab Robe Marshall MD Unavailable Robe Calero MD Unavailable Loly Calderon PA-C Unavailable [phone] Encounter Details Date Type Department Care Team (Late st Contact Info) Description 09/30/2023 [facility] [address] [phone] Corinna Rodriges MD [address] [place] [address] Social History Tobacco Use Types Packs/Day Years Used Date Smoking Tobacco: Never Smokeless Tobacco: Never Alcohol Use Standard Drinks/Week Comments Not Currently 0 (1 standard drink = 0.6 oz pur e alcohol) minimal alcohol use. 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 Not on karey e Not on file documented as of this encounter Plan of Treatment Upcoming Encounters Date Type Department Care Team (Late st Contact Info) Description 03/21/2025 12:15 PM CDT Virtual Visit [facility] [address] 4th [place] [phone] Loly Calderon PA-C [address] [place] [address] [phone] 05/21/2025 12:00 PM CDT Virtual Visit [facility] [address] [place] [phone] Corinna Rodriges MD [address] [place] [address] 479652 Delmi Garcia, [address] [phone] documented as of this encounter Visit Diagnoses Not on filedocumented in this encounter Additional Health Concerns Infection Onset Date Last Indicated Resolved Time Rule Out COVID-19 03/30/2024 03/30/2024 03/30/2024 7:56 PM CDT Assessment Noted Time PHQ-9 Depression Total Score: 1 12/30/19 23 4:00 PM CDT documented as of this encounter Care Teams Personal Banker Relationship Specialty Start Date End Date Corinna Rodriges MD [address] [place] [address] PCP - General 03/04/08 Corinna Rodriges MD [address] [place] [address] 19852 Assigned PCP 12/05/13 Sohail Olmstead MD [address] [place] [address] Assigned Surgical Provider 01/22/23 07/29/24 Galo Gill MD [address] [place] [address] Cardiovascular Disease 04/19/24 12/19/24 Arelis Vega PA-C [address] [address] Physician Doctor Of Pharmacy 07/02/24 Corinna Rodriges MD [address] [place] [address] 33630 Family Medicine 07/02/24 Loly Calderon PA-C 500 [place] [address] Physician Doctor Of Pharmacy Gastroenterology 07/02/24 Galo Gill MD Assigned Heart and Vascular Provider 07/30/24 Robe Calero MD [address] [place] [address] Assigned Surgical Provider 09/30/24 10/27/24 Robe Calero MD [address] [place], [place] 016395 Assigned Dermatology Provider 10/28/24 Loly Calderon PA-C [address] [place] [address] Assigned Gastroenterology Provider 10/28/24 documented as of this encounter
--- OUTSIDE RECORDS SUMMARY | 2025-03-10 23:40 | XMS_ITS | Encounter Summary ---
Author Organization [facility] Address [address] [place] [address] Care Team Providers Care Any Commodity Sales Deliverer Name Role Phone Corinna Rodriges MD Primary Care Provider Corinna Rodriges MD Unavailable [phone] Sohail Olmstead MD Unavailable [phone] Galo Gill MD Unavailable Unavailab Arelis Carrasco PA-C Unavailable [phone] Corinna Rodriges MD Unavailable [phone] Loly Calderon PA-C Unavailable [phone] Galo Gill MD Unavailable Unavailab Robe Marshall MD Unavailable Robe Calero MD Unavailable Loly Calderon PA-C Unavailable [phone] Reason for Visit * Reason Onset Date Comments Refill Request 12/04/2023 Encounter Details Date Type Department Care Team (Late st Contact Info) Description 12/04/2023 MyC Refill [address] [address] Corinna Rodriges MD [address] [place] [address] Refill Request Social History Tobacco Use Types Packs/Day Years Used Date Smoking Tobacco: Never Smokeless Tobacco: Never Alcohol Use Standard Drinks/Week Comments Not Currently 0 (1 standard drink = 0.6 oz pur e alcohol) minimal alcohol use. 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 on file [...] Description 03/21/2025 12:15 PM CDT Virtual Visit [facility] [address] 4th [place] [phone] Loly Calderon PA-C [address] [place] [address] 05/21/2025 12:00 PM CDT Virtual Visit [facility] [address] [place] [phone] Corinna Rodriges MD [address] [place] [address] Delmi Garcia, [address] [place], [place] [phone] documented as of this encounter Visit Diagnoses Diagnosis Attention deficit hyperactivity disorder, 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 documented in this encounter Additional Health Concerns Infection Onset Date Last Indicated Resolved Time Rule Out COVID-19 03/30/2024 03/30/2024 03/30/2024 7:56 PM CDT Assessment Noted Time PHQ-9 Depression Total Score: 1 12/30/19 4:00 PM CDT documented as of this encounter Care Teams Any Commodity Sales Deliverer Relationship Specialty Start Date End Date Corinna Rodriges MD [address] [place] [address] [id number] PCP - General 03/04/08 Corinna Rodriges MD [address] [place] [address] 129402 Assigned PCP 12/05/13 Sohail Olmstead MD [address] [place] [address] Assigned Surgical Provider 01/22/23 07/29/24 Galo Gill MD [address] [place] [address] Cardiovascular Disease 04/19/24 12/19/24 Arelis Vega PA-C [address] [place] [address] Physician Balance Wheel Motion Inspector 07/02/24 Corinna Rodriges MD [address] [place] [address] Family Medicine 07/02/24 Loly Calderon PA-C [address] [place] [address] Physician Balance Wheel Motion Inspector Gastroenterology 07/02/24 Galo Gill MD Assigned Heart and Vascular Provider 07/30/24 Robe Calero MD [address] [place] [address] Assigned Surgical Provider 09/30/24 10/27/24 Robe Calero MD [address] [place] [address] Assigned Dermatology Provider 10/28/24 Loly Calderon PA-C [address] [place] [address] Assigned Gastroenterology Provider 10/28/24 documented as of this encounter
--- OUTSIDE RECORDS SUMMARY | 2025-03-10 23:40 | XMS_ITS | Encounter Summary ---
Author Organization [facility] Address [address] [place] [address] Care Team Providers Care Ignition Mechanic Name Role Phone Corinna Rodriges MD Primary Care Provider Corinna Rodriges MD Unavailable [phone] Galo Ross MD Unavailable [phone] Sohail Olmstead MD Unavailable [phone] Galo Gill MD Unavailable Unavailab Arelis Carrasco PA-C Unavailable [phone] Corinna Rodriges MD Unavailable [phone] Loly Calderon PA-C Unavailable [phone] Galo Gill MD Unavailable Unavailab Robe Marshall MD Unavailable Robe Calero MD Unavailable Loly Calderon PA-C Unavailable [phone] Reason for Visit * Reason Onset Date Comments Refill Request 10/27/2020 Encounter Details Date Type Department Care Team (Late st Contact Info) Description 10/27/2020 MyC Refill [address] [address] Corinna Rodriges MD [address] [place] [address] Refill Request Social History Tobacco Use Types Packs/Day Years Used Date Smoking Tobacco: Never Smokeless Tobacco: Never Alcohol Use Standard Drinks/Week Comments Yes 0 (1 standard drink = 0.6 oz pur e alcohol) 0-1 drinks Q4M PHQ-2 Answer Date Recorded PHQ-2 Score 0 04/10/2020 Comments No Sex and Gender Information Value Date Recorded Sex Assigned at Female 08/08/2019 10:05 AM LONGSHORE EQUIPMENT OPERATOR Legal Sex Female 3:14 AM LONGSHORE EQUIPMENT OPERATOR Gender Identity Female 08/08/2019 10:05 AM LONGSHORE EQUIPMENT OPERATOR Sexual Orientation Straight 08/08/2019 10 :05 AM LONGSHORE EQUIPMENT OPERATOR Occupation Industry Job 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 Analysis performed by [facility] [place] [address] , Cannabinoids ([id number]) Date Value Ref Range Status 08/13/2019 Not [...] be used for medical purposes only. Order [id number] for confirmation or individual confirmation tests to [employer] Benzodiazepines (Nordiazepam) Date Value Ref Range Status [...] be electronically transmitted to pharmacy by provider [email or web address] Routing refill request to provider for review/approval because: Drug not on the [facility] refill protocol Keira Malone RN [facility] documented in this encounter Plan of Treatment Upcoming Encounters Date Type Department Care Team (Late st Contact Info) Description 03/21/2025 12:15 PM CDT Virtual Visit [facility] [address] [place] [phone] Loly Calderon PA-C [address] [place] [address] [phone] 05/21/2025 12:00 PM CDT Virtual Visit [facility] [address] [place] [phone] Corinna Rodriges MD [address] [place] [address] [phone] Delmi Garcia, DARIAN [address] [place], [place] 854385 documented as of this encounter Visit Diagnoses [...] Out COVID-19 08/28/2021 08/28/2021 08/29/2021 5:48 PM LONGSHORE EQUIPMENT OPERATOR Rule Out COVID-19 09/30/2021 09/30/2021 09/30/2021 10:11 PM LONGSHORE EQUIPMENT OPERATOR Rule Out COVID-19 03/30/2024 03/30/2024 03/30/2024 7:56 PM CDT Assessment Noted Time PHQ-9 Depression Total Score: 2 04/11/20 20 4:02 PM CDT documented as of this encounter Care Teams Ignition Mechanic Relationship Specialty Start Date End Date Corinna Rodriges MD [address] [place] [address] [id number] PCP - General 03/04/08 Corinna Rodriges MD [address] [place] [address] [phone] Assigned PCP 12/05/13 Galo Ross MD [address] [phone] Assigned OBGYN Provider 08/30/21 Sohail Olmstead MD [address] [place], [place] 465987 Assigned Surgical Provider 01/22/23 07/29/24 Galo Gill MD [address] [place] [address] Cardiovascular Disease 04/19/24 12/19/24 Arelis Vega PA-C [address] [place] [address] Physician Carpenter'S Assistant 07/02/24 [place] [address] [place] [address] 492802 Family Medicine 07/02/24 Loly Calderon PA-C [address] [place], [place] 872325 Physician Carpenter'S Assistant Gastroenterology 07/02/24 Galo Gill MD Assigned Heart and Vascular Provider 07/30/24 Rboe Calero MD [address] [place] [address] Assigned Surgical Provider 09/30/24 10/27/24 Robe Calero MD [address] [place], [place] 924115 Assigned Dermatology Provider 10/28/24 Loly Calderon PA-C [address] [place], [place] 916055 Assigned Gastroenterology Provider 10/28/24 documented as of this encounter
--- OUTSIDE RECORDS SUMMARY | 2025-03-10 23:40 | XMS_ITS | Clinical Summary ---
Author Organization [facility] Address [address] [place] [address] 59120 Care Team Providers Care Cable Braider Name Role Phone Corinna Rodriges MD Primary Care Provider [phone] Allergies Active Allergy Reactions Criticality Noted Date [...] patient's age to complete this topic Insurance [facility] Care Teams Cable Braider Relationship Specialty Start Date End Date Corinna Rodriges MD PCP - General Family Practice 01/15/14
--- OUTSIDE RECORDS SUMMARY | 2025-03-10 23:40 | XMS_ITS | Encounter Summary ---
Author Organization [facility] Address [address] [place] [address] 26914 Care Team Providers Care Mesh Man Name Role Phone Corinna Rodriges MD Primary Care Provider Corinna Rodriges MD Unavailable [phone] Corinna Rodriges MD Unavailable [phone] Galo Ross MD Unavailable [phone] Sohail Olmstead MD Unavailable [phone] Galo Gill MD Unavailable Unavailab Arelis Carrasco PA-C Unavailable [phone] Corinna Rodriges MD Unavailable [phone] Loly Calderon PA-C Unavailable [phone] Galo Gill MD Unavailable Unavailab Robe Marshall MD Unavailable Robe Calero MD Unavailable Loly Calderon PA-C Unavailable [phone] Encounter Details Date Type Department Care Team (Late st Contact Info) Description 06/04/2010 [facility] [address] [place] [address] [facility] Social History Tobacco Use Types Packs/Day Years Used Date Smoking Tobacco: Never Alcohol Use Standard Drinks/Week Comments Yes 0 (1 standard drink = 0.6 oz pure alcohol) occasionally in college - every other week Comments No Sex and Gender Information Value Date Recorded Sex Assigned at Female 08/08/2019 10:05 AM BUILDING TRADES INSTRUCTOR Legal Sex Female 3:14 AM BUILDING TRADES INSTRUCTOR Gender Identity Female 08/08/2019 10:05 AM BUILDING TRADES INSTRUCTOR Sexual Orientation Straight 08/08/2019 10 :05 AM BUILDING TRADES INSTRUCTOR Occupation Industry Job Start Date Job End Date [employer] - [employer] Not on file Not on file Not on file documented as of this encounter Plan of Treatment Upcoming Encounters Date Type Department Care Team (Late st Contact Info) Description 03/21/2025 12:15 PM CDT Virtual Visit [facility] [address] [place] [phone] Loly Calderon PA-C [address] [place], [place] 7[address]05 05/21/2025 12:00 PM CDT Virtual Visit [facility] [address] [place] [phone] [place] [address] [place] [address] 153982 Delmi Garcia [address] [phone] documented as of this encounter Visit Diagnoses Not on filedocumented in this encounter Additional Health Concerns Infection Onset Date Last Indicated Resolved Time Rule Out COVID-19 08/28/2021 08/28/2021 08/29/2021 5:48 PM BUILDING TRADES INSTRUCTOR Rule Out COVID-19 09/30/2021 09/30/2021 09/30/2021 10:11 PM BUILDING TRADES INSTRUCTOR Rule Out COVID-19 03/30/2024 03/30/2024 03/30/2024 7:56 PM CDT documented as of this encounter Care Teams Mesh Man Relationship Specialty Start Date End Date Corinna Rodriges MD [address] [place] [address] PCP - General 03/04/08 Corinna Rodriges MD [address] [place] [address] 27726 PCP - Assigned PCP 12/05/13 10/10/18 Corinna Rodriges MD [address] [place] [address] [id number] Assigned PCP 12/05/13 Galo Ross MD [address] 755294 Assigned OBGYN Provider 08/30/21 Sohail Olmstead MD [address] [place] [address] Assigned Surgical Provider 01/22/23 07/29/24 Galo Gill MD [address] [place] [address] Cardiovascular Disease 04/19/24 12/19/24 Arelis Vega PA-C [address] [place] [address] Physician Narrative Writer 07/02/24 Corinna Rodriges MD [address] [place] [address] Family Medicine 07/02/24 Loly Calderon PA-C [address] [place] [address] Physician Narrative Writer Gastroenterology 07/02/24 Galo Glil MD Assigned Heart and Vascular Provider 07/30/24 Robe Calero MD [address] [place] [address] Assigned Surgical Provider 09/30/24 10/27/24 Robe Calero MD [address] [place] [address] Assigned Dermatology Provider 10/28/24 Loly Calderon PA-C [address] [place] [address] Assigned Gastroenterology Provider 10/28/24 documented as of this encounter
--- OUTSIDE RECORDS SUMMARY | 2025-03-10 23:40 | XMS_ITS | Encounter Summary ---
Author Organization [facility] Address [address] [place] [address] 13937 Care Team Providers Care Project Engineer Name Role Phone Corinna Rodriges MD Primary Care Provider Corinna Rodriges MD Unavailable [phone] Galo Ross MD Unavailable [phone] Sohail Olmstead MD Unavailable [phone] Galo Gill MD Unavailable Unavailab Arelis Carrasco PA-C Unavailable [phone] Corinna Rodriges MD Unavailable [phone] Loly Calderon PA-C Unavailable [phone] Galo Gill MD Unavailable Unavailab Robe Marshall MD Unavailable Robe Calero MD Unavailable Loly Calderon PA-C Unavailable [phone] Encounter Details Date Type Department Care Team (Late st Contact Info) Description 11/06/2020 MyC Medical Advice [address] [address] Suyapa Villafana CMA Social History Tobacco Use Types Packs/Day Years Used Date Smoking Tobacco: Never Smokeless Tobacco: Never Alcohol Use Standard Drinks/Week Comments Yes 0 (1 standard drink = 0.6 oz pur e alcohol) 0-1 drinks Q4M PHQ-2 Answer Date Recorded PHQ-2 Score 0 04/10/2020 Comments No Sex and Gender Information Value Date Recorded Sex Assigned at Female 08/08/2019 10:05 AM RATING SPECIALIST Legal Sex Female 3:14 AM RATING SPECIALIST Gender Identity Female 08/08/2019 10:05 AM RATING SPECIALIST Sexual Orientation Straight 08/08/2019 10 :05 AM RATING SPECIALIST Occupation Industry Job Start Date Job End Date [employer]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[employer] Not on file Not on karey e Not on file documented as of this encounter Plan of Treatment Upcoming Encounters Date Type Department Care Team (Late st Contact Info) Description 03/21/2025 12:15 PM CDT Virtual Visit [facility] [address] 4th [place] [phone] Loly Calderon PA-C [address] [place], [place] [phone] 05/21/2025 12:00 PM CDT Virtual Visit [facility] [address] [place] [phone] Corinna Rodriges MD [address] [place], [place] 704032 Delmi Garcia [address] [phone] documented as of this encounter Visit Diagnoses Not on filedocumented in this encounter Additional Health Concerns Infection Onset Date Last Indicated Resolved Time Rule Out COVID-19 08/28/2021 08/28/2021 08/29/2021 5:48 PM RATING SPECIALIST Rule Out COVID-19 09/30/2021 09/30/2021 09/30/2021 10:11 PM RATING SPECIALIST Rule Out COVID-19 03/30/2024 03/30/2024 03/30/2024 7:56 PM CDT Assessment Noted Time PHQ-9 Depression Total Score: 2 04/11/20 20 4:02 PM CDT documented as of this encounter Care Teams Project Engineer Relationship Specialty Start Date End Date Corinna Rodriges MD [address] [place] [address] PCP - General 03/04/08 Corinna Rodriges MD [address] [place] [address] Assigned PCP 12/05/13 Galo Ross MD [address] [place] [address] Assigned OBGYN Provider 08/30/21 Sohail Olmstead MD [address] [place] [address] Assigned Surgical Provider 01/22/23 07/29/24 Galo Gill MD [address] [place] [address] Cardiovascular Disease 04/19/24 12/19/24 Arelis Vega PA-C [address] [address] Physician Dental Aide 07/02/24 Corinna Rodriges MD [address] [place] [address]28 Family Medicine 07/02/24 Loly Calderon PA-C [address] [place] [address] Physician Dental Aide Gastroenterology 07/02/24 Galo Gill MD Assigned Heart and Vascular Provider 07/30/24 Robe Calero MD [address] [place] [address] Assigned Surgical Provider 09/30/24 10/27/24 Robe Calero MD [address] [place], [place] 460865 Assigned Dermatology Provider 10/28/24 Loly Calderon PA-C [address] [place], [place] 003345 Assigned Gastroenterology Provider 10/28/24 documented as of this encounter
--- OUTSIDE RECORDS SUMMARY | 2025-03-10 23:40 | XMS_ITS | Encounter Summary ---
Author Organization [facility] Address [address] [place] [address]89 Care Team Providers Care Rice Field Worker Name Role Phone Corinna Rodriges MD Primary Care Provider Corinna Rodriges MD Unavailable [phone] Corinna Rodriges MD Unavailable [phone] Galo Ross MD Unavailable [phone] Sohail Olmstead MD Unavailable [phone] Galo Gill MD Unavailable Unavailab Arelis Carrasco PA-C Unavailable [phone] Corinna Rodriges MD Unavailable [phone] Loly Calderon PA-C Unavailable [phone] Galo Gill MD Unavailable Unavailab Robe Marshall MD Unavailable Robe Calero MD Unavailable Loly Calderon PA-C Unavailable [phone] Encounter Details Date Type Department Care Team (Late st Contact Info) Description 10/05/[address] [address] [place] Social History Tobacco Use Types Packs/Day Years Used Date Smoking Tobacco: Never Smokeless Tobacco: Never Alcohol Use Standard Drinks/Week Comments Yes 0 (1 standard drink = 0.6 oz pure alcohol) occasionally in college - every other week Comments No Sex and Gender Information Value Date Recorded Sex Assigned at Female 08/08/2019 10:05 AM DIVING COACH Legal Sex Female 3:14 AM DIVING COACH Gender Identity Female 08/08/2019 10:05 AM DIVING COACH Sexual Orientation Straight 08/08/2019 10 :05 AM DIVING COACH Occupation Industry Job Start Date Job End Date [employer] [facility] Not on file Not on file Not on file documented as of this encounter Plan of Treatment Upcoming Encounters Date Type Department Care Team (Late st Contact Info) Description 03/21/2025 12:15 PM CDT Virtual Visit [facility] [address] [place] [phone] Loly Calderon PA-C [address] [place], [place] [phone] 05/21/2025 12:00 PM CDT Virtual Visit [facility] [address] [place] [phone] Corinna Rodriges MD [address] [place], [place] [address]36[address] Delmi Garcia [address] [phone] documented as of this encounter Visit Diagnoses Not on filedocumented in this encounter Additional Health Concerns Infection Onset Date Last Indicated Resolved Time Rule Out COVID-19 08/28/2021 08/28/2021 08/29/2021 5:48 PM DIVING COACH Rule Out COVID-19 09/30/2021 09/30/2021 09/30/2021 10:11 PM DIVING COACH Rule Out COVID-19 03/30/2024 03/30/2024 03/30/2024 7:56 PM CDT documented as of this encounter Care Teams Rice Field Worker Relationship Specialty Start Date End Date Corinna Rodriges MD [address] [place] [address] PCP - General 03/04/08 Corinna Rodriges MD [address] [place] [address] 197892 PCP - Assigned PCP 12/05/13 10/10/18 Corinna Rodriges MD [address] [place] [address] [id number] Assigned PCP 12/05/13 Galo Ross MD [address] [place] [address] Assigned OBGYN Provider 08/30/21 Sohail Olmstead MD [address] [place] [address] Assigned Surgical Provider 01/22/23 07/29/24 Galo Gill MD [address] [place] [address] Cardiovascular Disease 04/19/24 12/19/24 Arelis Vega PA-C [address] [place] [address] Physician Silica Mixer Operator 07/02/24 Corinna Rodriges MD [address] [place] [address] Family Medicine 07/02/24 Loly Calderon PA-C [address] [place] [address] Physician Silica Mixer Operator Gastroenterology 07/02/24 Galo Gill MD Assigned Heart and Vascular Provider 07/30/24 Robe Calero MD [address] [place], [place] 776855 Assigned Surgical Provider 09/30/24 10/27/24 Robe Calero MD [address] [place], [place] 666775 Assigned Dermatology Provider 10/28/24 Loly Calderon PA-C [address] [place], [place] 666735 Assigned Gastroenterology Provider 10/28/24 documented as of this encounter
--- OUTSIDE RECORDS SUMMARY | 2025-03-10 23:40 | XMS_ITS | Encounter Summary ---
Author Organization [facility] Address [address] [place] [address] Care Team Providers Care Flute Grinder Name Role Phone Corinna Rodriges MD Primary Care Provider Corinna Rodriges MD Unavailable [phone] Galo Ross MD Unavailable [phone] Sohail Olmstead MD Unavailable [phone] Galo Gill MD Unavailable Unavailab Arelis Carrasco PA-C Unavailable [phone] Corinna Rodriges MD Unavailable [phone] Loly Calderon PA-C Unavailable [phone] Galo Gill MD Unavailable Unavailab Robe Marshall MD Unavailable Robe Calero MD Unavailable Loly Calderon PA-C Unavailable [phone] Reason for Visit * Reason Onset Date Comments Refill Request 08/07/2020 Encounter Details Date Type Department Care Team (Late st Contact Info) Description 08/07/2020 MyC Refill [address] [address] Corinna Rodriges MD [address] [place] [address] Refill Request Social History Tobacco Use Types Packs/Day Years Used Date Smoking Tobacco: Never Smokeless Tobacco: Never Alcohol Use Standard Drinks/Week Comments Yes 0 (1 standard drink = 0.6 oz pur e alcohol) 0-1 drinks Q4M PHQ-2 Answer Date Recorded PHQ-2 Score 0 04/10/2020 Comments No Sex and Gender Information Value Date Recorded Sex Assigned at Female 08/08/2019 10:05 AM ELECTRICAL MACHINIST Legal Sex Female 3:14 AM ELECTRICAL MACHINIST Gender Identity Female 08/08/2019 10:05 AM ELECTRICAL MACHINIST Sexual Orientation Straight 08/08/2019 10 :05 AM ELECTRICAL MACHINIST Occupation Industry Job Start Date Job 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 Analysis performed by [employer], [employer] [place] [address] , Cannabinoids ([id number]) Date Value Ref Range Status 08/13/2019 Not [...] be used for medical purposes only. Order [id number] for confirmation or individual confirmation tests to [facility]. Benzodiazepines (Nordiazepam) Date Value Ref Range Status [...] be electronically transmitted to pharmacy by provider [email or web address] RESIDENTIAL TREATMENT SPECIALIST checked in past 3 months? No, route to RN Sarah Howard RN, BSN [place] Triage TRICAL MACHINIST documented in this encounter Plan of Treatment Upcoming Encounters Date Type Department Care Team (Late st Contact Info) Description 03/21/2025 12:15 PM CDT Virtual Visit [facility] [address] [place] [address] Loly Calderon PA-C [address] [place], [place] [phone] 05/21/2025 12:00 PM CDT Virtual Visit [facility] [address] [place] [address] Corinna Rodriges MD [address] [place], [place] 629542 Delmi Garcia GC [address] [place] [phone] documented as of this encounter Visit Diagnoses [...] Out COVID-19 08/28/2021 08/28/2021 08/29/2021 5:48 PM ELECTRICAL MACHINIST Rule Out COVID-19 09/30/2021 09/30/2021 09/30/2021 10:11 PM ELECTRICAL MACHINIST Rule Out COVID-19 03/30/2024 03/30/2024 03/30/2024 7:56 PM CDT Assessment Noted Time PHQ-9 Depression Total Score: 2 04/11/20 20 4:02 PM CDT documented as of this encounter Care Teams Flute Grinder Relationship Specialty Start Date End Date Corinna Rodriges MD [address] [place] [address] PCP - General 03/04/08 Corinna Rodriges MD [address] [place] [address] Assigned PCP 12/05/13 Galo Ross MD [address] [facility] [address] [place], [place] 809964 Assigned OBGYN Provider 08/30/21 Sohail Olmstead MD [address] [place], [place] 153567 Assigned Surgical Provider 01/22/23 07/29/24 Galo Gill MD [address] [place] [address] Cardiovascular Disease 04/19/24 12/19/24 Arelis Vega PA-C [address] [address] Physician Repair Armature Winder 07/02/24 [place] [address] [place] [address] 105442 Family Medicine 07/02/24 Loly Calderon PA-C [address] [place], [place] 169505 Physician Repair Armature Winder Gastroenterology 07/02/24 Galo Gill MD Assigned Heart and Vascular Provider 07/30/24 Robe Calero MD [address] [place], [place] 893895 Assigned Surgical Provider 09/30/24 10/27/24 Robe Calero MD [address] [place], [place] 177505 Assigned Dermatology Provider 10/28/24 Loly Calderon PA-C [address] [place], [place] 171145 Assigned Gastroenterology Provider 10/28/24 documented as of this encounter
--- OUTSIDE RECORDS SUMMARY | 2025-03-10 23:40 | XMS_ITS | Encounter Summary ---
Author Organization [facility] Address [address] [place] [address] Care Team Providers Care Campus Supervisor Name Role Phone Corinna Rodriges MD Primary Care Provider Corinna Rodriges MD Unavailable [phone] Galo Ross MD Unavailable [phone] Sohail Olmstead MD Unavailable [phone] Galo Gill MD Unavailable Unavailab Arelis Carrasco PA-C Unavailable [phone] Corinna Rodriges MD Unavailable [phone] Loly Calderon PA-C Unavailable [phone] Galo Gill MD Unavailable Unavailab Robe Marshall MD Unavailable Robe Calero MD Unavailable Loly Calderon PA-C Unavailable [phone] Encounter Details Date Type Department Care Team (Late st Contact Info) Description 10/02/2021 [facility] [address] [address] Corinna Rodriges MD [address] [place] [address] [id number] Social History Tobacco Use Types Packs/Day Years Used Date Smoking Tobacco: Never Smokeless Tobacco: Never Alcohol Use Standard Drinks/Week Comments Not Currently 0 (1 standard drink = 0.6 oz pure alcohol) minimal alcohol use prior to PHQ-2 Answer Date Recorded PHQ-2 Score 1 05/29/2021 Comments Yes Sex and Gender Information Value Date Recorded Sex Assigned at Female 08/08/2019 10:05 AM SR. LOGISTICS ANALYST Legal Sex Female 3:14 AM SR. LOGISTICS ANALYST Gender Identity Female 08/08/2019 10:05 AM SR. LOGISTICS ANALYST Sexual Orientation Straight 08/08/2019 10 :05 AM SR. 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 No / Unsure 10/02/2021 9:59 AM SR. LOGISTICS ANALYST documented as of this encounter Plan of Treatment Upcoming Encounters Date Type Department Care Team (Late st Contact Info) Description 03/21/2025 12:15 PM CDT Virtual Visit [facility] [address] [place] [address] Loly Calderon PA-C [address] [place], [place] 0[address]15 05/21/2025 12:00 PM CDT Virtual Visit [facility] [address] [place] [address] Corinna Rodriges MD [address] [place], [place] [phone] Delmi Garcia GC [address] [place] [phone] documented as of this encounter Visit Diagnoses Not on filedocumented in this encounter Additional Health Concerns Infection Onset Date Last Indicated Resolved Time Rule Out COVID-19 03/30/2024 03/30/2024 03/30/2024 7:56 PM CDT Assessment Noted Time PHQ-9 Depression Total Score: 3 03/04/20 21 7:02 AM CDT documented as of this encounter Care Teams Campus Supervisor Relationship Specialty Start Date End Date Corinna Rodriges MD [address] [place] [address] PCP - General 03/04/08 Corinna Rodriges MD [address] [place] [address] Assigned PCP 12/05/13 Galo Ross MD [address] [place] [address] 786394 Assigned OBGYN Provider 08/30/21 Sohail Olmstead MD [address] [place] [address] Assigned Surgical Provider 01/22/23 07/29/24 Galo Gill MD [address] [place] [address] Cardiovascular Disease 04/19/24 12/19/24 Arelis Vega PA-C [address] [place] [address] Physician Pattern Chart Writer 07/02/24 Corinna Rodriges MD [address] [place] [address] Family Medicine 07/02/24 Loly Calderon PA-C [address] [place] [address] Physician Pattern Chart Writer Gastroenterology 07/02/24 Galo Gill MD Assigned Heart and Vascular Provider 07/30/24 Robe Calero MD 500 [place] [address] Assigned Surgical Provider 09/30/24 10/27/24 Robe Calero MD 500 [place] [address] Assigned Dermatology Provider 10/28/24 Loly Calderon PA-C [address] [place] [address] Assigned Gastroenterology Provider 10/28/24 documented as of this encounter
[2025-03-11] VITALS: BP 142/86; PULSE 51; RESP 16; TEMP 35.7; O2SAT 96; BMI 25.7
[2025-03-11 00:19] LABS: Appearance Urine Clear (Clear)
[2025-03-11 00:24] LABS: Ur HCG Qualitative* Negative (Negative)
--- NOTE | 2025-03-11 00:32 | CRLHL7_ITS ---
For Patients: As a result of the Century Cures Act, medical imaging exams and procedure reports are released immediately into your electronic medical record. You may view this report before your referring provider. If you have questions, please contact your health care provider. INDICATION: Right flank pain. TECHNIQUE: CT abdomen and pelvis without contrast. COMPARISON: None. FINDINGS: Lower chest: Unremarkable. Liver: Normal in size and attenuation. Gallbladder and bile ducts: No stones or inflammation. No biliary ductal dilatation. Spleen: Normal in size. Adrenal glands: Normal in size. No nodules. Pancreas: No inflammation. Kidneys: Two adjacent 2 mm calcifications in the region of the right distal ureter (series 2, image 128), possibly representing ureteral calculi given mild right hydronephrosis. 4 mm left ureteropelvic junction calculus with mild left hydronephrosis. Punctate nonobstructive left renal calculus. GI tract: Normal in caliber. No evidence of obstruction. Appendix is not well visualized, however there is no evidence of right lower quadrant inflammatory stranding. Lymph nodes: No lymphadenopathy. Vasculature: Abdominal aorta is normal in caliber. Abdominal wall/Omentum/Peritoneum: Trace free fluid in the pelvis, likely physiologic. No focal fluid collection. No free air. Tiny fat containing umbilical hernia. Pelvis: Unremarkable. Bones: Unremarkable for age. IMPRESSION: 1. Two adjacent 2 mm calcifications in the region of the right distal ureter, possibly representing ureteral calculi given mild right hydronephrosis. Pelvic phleboliths would be a differential consideration. 2. 4 mm left ureteropelvic junction calculus with mild left hydronephrosis. 3. Punctate left nonobstructive nephrolithiasis. Please note that all CT scans at this facility use dose modulation, iterative reconstruction, and/or weight-based dosing when appropriate to reduce radiation dose to as low as reasonably achievable. Dictated by Kian Evans MD @ 03/11/2025 12:53:48 AM (Electronically Signed)
[2025-03-11 01:13] VITALS: TEMP 35.7
[2025-03-11 02:13] LABS: Creatinine, Point-of-Care* 0.8 mg/dl (0.6-1.3)
[2025-03-11] MEDS: TAMSULOSIN HCL 0.4 MG CAPSULE PO (02:13)
[2025-03-11 02:20] VITALS: BP 126/72; PULSE 56; RESP 16; O2SAT 98
--- OUTSIDE RECORDS SUMMARY | 2025-03-11 02:22 | XMS_ITS | Encounter Summary ---
Author Organization [facility] Address [address] [place] [address] Care Team Providers Care Medical Concierge Name Role Phone Corinna Rodriges MD Primary Care Provider Corinna Rodriges MD Unavailable [phone] Galo Ross MD Unavailable [phone] Sohail Olmstead MD Unavailable [phone] Galo Gill MD Unavailable Unavailab Arelis Carrasco PA-C Unavailable [phone] Corinna Rodriges MD Unavailable [phone] Loly Calderon PA-C Unavailable [phone] Galo Gill MD Unavailable Unavailab Robe Marshall MD Unavailable Robe Calero MD Unavailable Loly Calderon PA-C Unavailable [phone] Encounter Details Date Type Department Care Team (Late st Contact Info) Description 10/02/2021 [facility] [place] [facility] [address] [address] Corinna Rodriges MD [address] [place] [address] [phone] Social History Tobacco Use Types Packs/Day Years Used Date Smoking Tobacco: Never Smokeless Tobacco: Never Alcohol Use Standard Drinks/Week Comments Not Currently 0 (1 standard drink = 0.6 oz pure alcohol) minimal alcohol use prior to PHQ-2 Answer Date Recorded PHQ-2 Score 1 05/29/2021 Comments Yes Sex and Gender Information Value Date Recorded Sex Assigned at Female 08/08/2019 10:05 AM CRIMPER OPERATOR Legal Sex Female 3:14 AM CRIMPER OPERATOR Gender Identity Female 08/08/2019 10:05 AM CRIMPER OPERATOR Sexual Orientation Straight 08/08/2019 10 :05 AM CRIMPER OPERATOR Occupation Industry Job Start Date Job 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 No / Unsure 10/02/2021 9:59 AM CRIMPER OPERATOR documented as of this encounter Plan of Treatment Upcoming Encounters Date Type Department Care Team (Late st Contact Info) Description 03/21/2025 12:15 PM CDT Virtual Visit [facility] [address] [place] [address] Loly Calderon PA-C 500 [place], [place] [address] 05/21/2025 12:00 PM CDT Virtual Visit [facility] [address] [place] [address] Corinna Rodriges MD [address] [place], [place] 388[address] Delmi Garcia GC [address] [place] [address] [phone] documented as of this encounter Visit Diagnoses Not on filedocumented in this encounter Additional Health Concerns Infection Onset Date Last Indicated Resolved Time Rule Out COVID-19 03/30/2024 03/30/2024 03/30/2024 7:56 PM CDT Assessment Noted Time PHQ-9 Depression Total Score: 3 03/04/20 21 7:02 AM CDT documented as of this encounter Care Teams Medical Concierge Relationship Specialty Start Date End Date Corinna Rodriges MD [address] [place] [address] PCP - General 03/04/08 Corinna Rodriges MD [address] [place] [address] Assigned PCP 12/05/13 Galo Ross MD [address] [place] [address] 017904 Assigned OBGYN Provider 08/30/21 Sohail Olmstead MD [address] [place] [address] Assigned Surgical Provider 01/22/23 07/29/24 Galo Gill MD [address] [place] [address] Cardiovascular Disease 04/19/24 12/19/24 Arelis Vega PA-C [address] [place] [address] Physician Avionics Shop Supervisor 07/02/24 Corinna Rodriges MD [address] [place] [address] Family Medicine 07/02/24 Loly Calderon PA-C [address] [place] [address] Physician Avionics Shop Supervisor Gastroenterology 07/02/24 Galo Gill MD Assigned Heart and Vascular Provider 07/30/24 Robe Calero MD 500 [place] [address] Assigned Surgical Provider 09/30/24 10/27/24 Robe Calero MD 500 [place] [address] Assigned Dermatology Provider 10/28/24 Loly Calderon PA-C [address] [place] [address] Assigned Gastroenterology Provider 10/28/24 documented as of this encounter
--- OUTSIDE RECORDS SUMMARY | 2025-03-11 02:22 | XMS_ITS | Encounter Summary ---
Author Organization [facility] Address [address] [place] [address] Care Team Providers Care Warp Trucker Name Role Phone Corinna Rodriges MD Primary Care Provider Corinna Rodriges MD Unavailable [phone] Gaol Ross MD Unavailable [phone] Sohail Olmstead MD Unavailable [phone] Galo Gill MD Unavailable Unavailab Arelis Carrasco PA-C Unavailable [phone] Corinna Rodriges MD Unavailable [phone] Loly Calderon PA-C Unavailable [phone] Galo Gill MD Unavailable Unavailab Robe Marshall MD Unavailable Robe Calero MD Unavailable Loly Calderon PA-C Unavailable [phone] Reason for Visit * Reason Onset Date Comments Refill Request 10/27/2020 Encounter Details Date Type Department Care Team (Late st Contact Info) Description 10/27/2020 MyC Refill [address] [address] Corinna Rodriges MD [address] [place] [address] Refill Request Social History Tobacco Use Types Packs/Day Years Used Date Smoking Tobacco: Never Smokeless Tobacco: Never Alcohol Use Standard Drinks/Week Comments Yes 0 (1 standard drink = 0.6 oz pur e alcohol) 0-1 drinks Q4M PHQ-2 Answer Date Recorded PHQ-2 Score 0 04/10/2020 Comments No Sex and Gender Information Value Date Recorded Sex Assigned at Female 08/08/2019 10:05 AM STRUCTURES TECHNICIAN Legal Sex Female 3:14 AM STRUCTURES TECHNICIAN Gender Identity Female 08/08/2019 10:05 AM STRUCTURES TECHNICIAN Sexual Orientation Straight 08/08/2019 10 :05 AM STRUCTURES TECHNICIAN Occupation Industry Job Start 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 Analysis performed by [employer], [employer] [place] [address] , Cannabinoids ([id number]) Date Value Ref Range Status 08/13/2019 Not [...] be used for medical purposes only. Order [id number] for confirmation or individual confirmation tests to [employer]. Benzodiazepines (Nordiazepam) Date Value Ref Range Status [...] be electronically transmitted to pharmacy by provider [email or web address] Routing refill request to provider for review/approval because: Drug not on the [facility] refill protocol Keira Malone RN [facility] documented in this encounter Plan of Treatment Upcoming Encounters Date Type Department Care Team (Late st Contact Info) Description 03/21/2025 12:15 PM CDT Virtual Visit [facility] [address] [place] [phone] Loly Calderon PA-C [address] [place] [address] 05/21/2025 12:00 PM CDT Virtual Visit [facility] [address] [place] [phone] Corinna Rodriges MD [address] [place] [address] [id number] Delmi Garcia, DARIAN [address] [place], [place] [phone] documented as of this encounter Visit Diagnoses [...] Out COVID-19 08/28/2021 08/28/2021 08/29/2021 5:48 PM STRUCTURES TECHNICIAN Rule Out COVID-19 09/30/2021 09/30/2021 09/30/2021 10:11 PM STRUCTURES TECHNICIAN Rule Out COVID-19 03/30/2024 03/30/2024 03/30/2024 7:56 PM CDT Assessment Noted Time PHQ-9 Depression Total Score: 2 04/11/20 20 4:02 PM CDT documented as of this encounter Care Teams Warp Trucker Relationship Specialty Start Date End Date Corinna Rodriges MD [address] [place] [address] 324512 PCP - General 03/04/08 Corinna Rodriges MD [address] [place] [address] 874642 Assigned PCP 12/05/13 Galo Ross MD [address] [id number] Assigned OBGYN Provider 08/30/21 Sohail Olmstead MD [address] [place], [place] [address] Assigned Surgical Provider 01/22/23 07/29/24 Galo Gill MD [address] [place] [address] Cardiovascular Disease 04/19/24 12/19/24 Arelis Vega PA-C [address] [place] [address] Physician Porcelain Enamel Sprayer 07/02/24 [place] [address] [place] [address] 331742 Family Medicine 07/02/24 Loly Calderon PA-C [address] [place], [place] 8[address] Physician Porcelain Enamel Sprayer Gastroenterology 07/02/24 Galo Gill MD Assigned Heart and Vascular Provider 07/30/24 Robe Calero MD 500 [place] [address] Assigned Surgical Provider 09/30/24 10/27/24 Robe Calero MD [address] [place], [place] 883665 Assigned Dermatology Provider 10/28/24 Loly Calderon PA-C [address] [place], [place] 026375 Assigned Gastroenterology Provider 10/28/24 documented as of this encounter
--- OUTSIDE RECORDS SUMMARY | 2025-03-11 02:22 | XMS_ITS | Encounter Summary ---
Author Organization [place] Address [address] [place] [address]. [place] [address] Care Team Providers Care Marketing Agent Name Role Phone Corinna Rodriges MD Primary Care Provider Corinna Rodriges MD Unavailable Arelis Vega PA-C Unavailable [phone] Corinna Rodriges MD Unavailable [phone] Loly Calderon PA-C Unavailable [phone] Galo Gill MD Unavailable Unavailab Robe Marshall MD Unavailable Loly Calderon PA-C Unavailable [phone] Reason for Visit * Reason Onset Date Comments Refill Request 02/06/2025 Encounter Details Date Type Department Care Team (Late st Contact Info) Description 02/06/2025 MyC Refill [address] [address] Corinna Rodriges MD [address] [place] [address] Refill Request Social History Tobacco Use [...] re latives? Twice a week 06/27/2024 Attends [employer] Services Not on file 06/27 Active Member of Clubs or Organizations Not on f ile 06/27/2024 Attends Club or Organization Meetings Not on karey e 06/27/2024 Marital Status Not on file 06/27/2024 PHQ-2 Answer Date Recorded PHQ-2 Score 0 06/27/2024 [facility] Occupat ional Health - Occupational Stress [...] exercise at this level? 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 * Telephone Encounter - oCrinna Rodriges MD - 02/06/2025 4:49 PM CDT [...] for extra travel time and check the [facility] [employer] project website for delay, closure, and detour information. The [facility] ([facility] is in a dense urban area with multiple transportation and parking options. You may wish to review options for duty officer service and self-parking in more detail on the [facility]s website at [email or web address]. 05/21/2025 12:00 PM NEW ONCOLOGY 75 min [facility] CANCER RISK [facility] Delmi Garcia GC Location Instructions: Due to road construction on , travel times to this location may be longer than usual. Please plan for extra travel time and check the [facility] project website for delay, closure, and detour information. The [facility] ([facility] is in a dense urban area with multiple transportation and parking options. You may wish to review options for duty officer service and self-parking in more detail on the [facility]s website at [email or web address]. This appointment is in a hospital-based location. Before your visit, you may want to check with your insurance company for coverage and referral options, including cost differences between services provided indifferent clinic settings. For more information visit this link on the [employer] Website: [email or web address] documented in this encounter Plan of Treatment Upcoming Encounters Date Type Department Care Team ([facility] st Contact Info) Description 03/21/2025 12:15 PM CDT Virtual Visit [facility] Gastro[facility]ology Clinic [address] [place] [address] Loly Calderon PA-C [address] [place] [address] 05/21/2025 12:00 PM CDT Virtual Visit [facility] [address] [place] [phone] Corinna Rodriges MD [address] [place] [address] 380662 Delmi Garcia GC [address] [place], [place] [address] documented as of this encounter Visit Diagnoses Diagnosis Controlled substance agreement signed-06/27/2024-ok for adderall XR 30mg #25 /month &Adderall xr 20mg #10/month Encounter for long-term (current) use of other medications Attention deficit hyperactivity disorder, 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/27/2024 documented in this encounter Additional Health Concerns Assessment Noted Time PHQ-9 Depression Total Score: 1 06/27/20 24 9:36 AM HOUSING DIRECTOR documented as of this encounter Care Teams Marketing Agent Relationship Specialty Start Date End Date Corinna Rodriges MD [address] [place] [address] PCP - General 03/04/08 Corinna Rodriges MD [address] [place] [address] Assigned PCP 12/05/13 Arelis Vega PA-C [address] [place] [address] Physician In Process Inspector 07/02/24 Corinna Rodriges MD [address] [place] [address] Family Medicine 07/02/24 Loly Calderon PA-C [address] [place] [address] Physician In Process Inspector Gastroenterology 07/02/24 Galo Gill MD Assigned Heart and Vascular Provider 07/30/24 Robe Calero MD [address] [place], [place] 2928[address] Assigned Dermatology Provider 10/28/24 Loly Calderon PA-C [address] [place], [place] 8[address]195 Assigned Gastroenterology Provider 10/28/24 documented as of this encounter
--- OUTSIDE RECORDS SUMMARY | 2025-03-11 02:22 | XMS_ITS | Patient Health Record ---
Author Organization 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 Problems Problem Type SNOMED Code ICD Code Onset Dates Problem Status W/U Status Risk Notes Problem Nasal congestion (52733143) Nasal congestion (R09.81) Active confirmed Problem Deviated nasal septum (738471464) Nasal septal deviation (J34.2) Active confirmed Problem Ear fullness, bilateral (H93.8X3) Active confirmed Plan Of Treatment No Information Insurance Providers Payer Name Payer Address Payer Phone Subscriber Number Group Number Insured Name Patient Relationship to Insured Coverage Start Date Coverage End Date [facility] [address] [address] [place] [address] [id number] Chel Griggs Self - patient is the insured Medical (General) History Surgical History Surgery Date(Month/Year)
--- OUTSIDE RECORDS SUMMARY | 2025-03-11 02:22 | XMS_ITS | Encounter Summary ---
Author Organization [facility] Address [address] [place] [address]. [place] [address] Care Team Providers Care Scoop Driver Name Role Phone Corinna Rodriges MD Primary Care Provider Corinna Rodriges MD Unavailable [phone] Galo Gill MD Unavailable Unavailab Arelis Carrasco PA-C Unavailable [phone] Corinna Rodriges MD Unavailable [phone] Loly Calderon PA-C Unavailable [phone] Galo Gill MD Unavailable Unavailab Robe Marshall MD Unavailable Loly Calderon PA-C Unavailable [phone] Encounter Details Date Type Department Care Team (Late st Contact Info) Description 12/07/2024 [facility] [address] [address] Yasmin [place] Social History Tobacco [...] re latives? Twice a week 06/27/2024 Attends [employer] Not on file 06/27 Active Member of Clubs or Organizations Not on f ile 06/27/2024 Attends Club or Organization Meetings Not on karey e 06/27/2024 Marital Status Not on file 06/27/2024 PHQ-2 Answer Date Recorded PHQ-2 Score 0 06/27/2024 [facility] - Occupational Stress Questionnaire Answer [...] exercise at this level? 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 Not on karey e Not on file documented as of this encounter Plan of Treatment Upcoming Encounters Date Type Department Care Team (Late st Contact Info) Description 03/21/2025 12:15 PM CDT Virtual Visit [facility] [address] [place] [address] Loly Calderon PA-C [address] [place], [place] [address] 05/21/2025 12:00 PM CDT Virtual Visit [facility] [address] [place] [address] Corinna Rodriges MD [address] [place], [place] [address] Delmi Garcia GC [address] [place] [address] 835925 documented as of this encounter Visit Diagnoses Not on filedocumented in this encounter Additional Health Concerns Assessment Noted Time PHQ-9 Depression Total Score: 1 06/27/20 24 9:36 AM GENERAL CAR YARD SUPERVISOR documented as of this encounter Care Teams Scoop Driver Relationship Specialty Start Date End Date Corinna Rodriges MD [address] [place] [address] [phone] PCP - General 03/04/08 Corinna Rodriges MD [address] [place] [address] 983562 Assigned PCP 12/05/13 Galo Gill MD [address] [place] [address] Cardiovascular Disease 04/19/24 12/19/24 Arelis Vega PA-C [address] [place] [address] Physician Hash Slinger 07/02/24 Corinna Rodriges MD [address] [place] [address] Family Medicine 07/02/24 Loly Calderon PA-C [address] [place] [address] Physician Hash Slinger Gastroenterology 07/02/24 Galo Gill MD Assigned Heart and Vascular Provider 07/30/24 Robe Calero MD [address] [place], [place] 97[address] Assigned Dermatology Provider 10/28/24 Loly Calderon PA-C [address] [place] [address] Assigned Gastroenterology Provider 10/28/24 documented as of this encounter
--- OUTSIDE RECORDS SUMMARY | 2025-03-11 02:22 | XMS_ITS | Clinical Summary ---
Author Organization [place] Address [address] [place] [address] Care Team Providers Care Housing Inspector Name Role Phone Shyam Rodriges MD Primary Care Provider Shyam Rodriges MD Unavailable [phone] Arelis Vega PA-C Unavailable [phone] Shyam Rodriges MD Unavailable [phone] Loly Calderon PA-C Unavailable [phone] Galo Gill MD Unavailable Unavailab Robe Marshall MD Unavailable Loly Calderon PA-C Unavailable [phone] Allergies Active Allergy Reactions Criticality Noted [...] xr 20mg #10/month 01/31/2015 Overview (08/13/2019): Checked [employer] website - no unusal use. ---[employer] August 13, 2019 Major depressive disorder, r [...] on file but diagnosis not confirmed Last [facility] website verification: done on 06/27/2024 [email or web address] Other acne 03/03/2007 Resolved Problems Problem Noted [...] Department Care Team Description 03/10/2025 MyC Refill [address] [address] Shyam Rodriges MD Refill Request 03/04/2025 6:00 PM CDT Office Visit [facility] [place] [address] [place] [phone] Beatrice Pinon APRN ORTHOPEDIC TECH Dysuria (Primary Dx) 03/04/2025 Travel 02/06/2025 MyC Refill [address] [address] Shyam Rodriges MD Refill Request from Last [...] Answer Date Recorded PHQ-2 Score 0 06/27/2024 [facility] of Occupat ional Health - Occupational Stress [...] exercise at this level? 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 [...] Description 03/21/2025 12:15 PM CDT Virtual Visit [facility] [address] [place] [address] Loly Calderon PA-C [address] [place], [place] [phone] 05/21/2025 12:00 PM CDT Virtual Visit [facility] [address] [place] [address] Shyam Rodriges MD [address] [place], [place] [address] Delmi Garcia, [address] [phone] Health Maintenance Due Date Last Done Comments [...] COMPREHENSIVE METABOLIC PANEL Routine 06/27/2024 5:11 PM TRESTLE MAINTERNANCE LABORER CARDIOVASCULAR SCREENING; LDL GOAL LESS THAN 160 [...] URINE ORDERABLES Final Res ult [facility] [place] [facility] [address] [facility] (no room number, 1st floor of clinic) [place] [address], [facility] * (ABNORMAL) UA with Microscopic reflex [...] 03/04/2025 5:58 PM CDT [facility] Specific [place] Urine 1.010 1.003 - 1.035 03/04/2025 5:58 [...] 03/04/2025 5:53 PM CDT us Capri Bergman PAVING STONE INSTALLER LAB - URINE ORDERABLES Final Res ult LABORATORY [facility] [address] [facility] (no room number, 1st floor of clinic) [place] [address], [facility] * Comprehensive metabolic panel (BMP + Alb, Alk Phos, ALT, AST, Total. Bili, TP) (06/27/2024 5:11 PM TRESTLE MAINTERNANCE LABORER) Sodium 138 135 - 145 mmol/L 06/28/2024 7:08 PM TRESTLE MAINTERNANCE LABORER [facility] Potassium 3.7 3.4 - 5.3 mmol/L 06/28/2024 7:08 PM TRESTLE MAINTERNANCE LABORER [facility] Carbon Dioxide (CO2) 28 22 - 29 mmol/L 06/28/2024 7:08 PM TRESTLE MAINTERNANCE LABORER [facility] Anion Gap 9 7 - 15 mmol/L 06/28/2024 7:08 PM TRESTLE MAINTERNANCE LABORER [facility] Urea Nitrogen 12.4 6.0 - 20.0 mg/dL 06/28/2024 7:08 PM TRESTLE MAINTERNANCE LABORER [facility] Creatinine 0.73 0.51 - 0.95 mg/dL 06/28/2024 7:08 PM TRESTLE MAINTERNANCE LABORER [facility] GFR Estimate >90 >60 mL/min/1.7 3m2 06/28/2024 7:08 PM TRESTLE MAINTERNANCE LABORER [facility] Comment:eGFR calculated us2020 CKD-EPI equation. Calcium 9.4 8.8 - 10.4 mg/dL 06/28/2024 7:08 PM TRESTLE MAINTERNANCE LABORER [facility] Comment:Reference intervals for this test were updated on 02/21/2024 to reflect our healthy population more accurately. There may be differences in the flagging of prior results with similar values performed with this method. Those prior results can be interpreted in the context of the updated reference intervals. Chloride 101 98 - 107 mmol/L 06/28/2024 7:08 PM TRESTLE MAINTERNANCE LABORER [facility] Glucose 82 70 - 99 mg/dL 06/28/2024 7:08 PM TRESTLE MAINTERNANCE LABORER [facility] Alkaline Phosphatase 66 40 - 150 U/L 06/28/2024 7:08 PM TRESTLE MAINTERNANCE LABORER [facility] AST 28 0 - 45 U/L 06/28/2024 7:08 PM TRESTLE MAINTERNANCE LABORER [facility] ALT 36 0 - 50 U/L 06/28/2024 7:08 PM TRESTLE MAINTERNANCE LABORER [facility] Protein Total 7.1 6.4 - 8.3 g/dL 06/28/2024 7:08 PM TRESTLE MAINTERNANCE LABORER [facility] Albumin 4.3 3.5 - 5.2 g/dL 06/28/2024 7:08 PM TRESTLE MAINTERNANCE LABORER [facility] Bilirubin Total 0.4 <=1.2 mg/dL 06/28/2024 7:08 PM TRESTLE MAINTERNANCE LABORER [facility] Patient Fasting > 8hrs? Unknown 06/28/2024 7:08 PM TRESTLE MAINTERNANCE LABORER [facility] Blood BLOOD SPECIMEN / Unknown Venipuncture / Unknown 06/27/2024 5:11 PM TRESTLE MAINTERNANCE LABORER 06/27/2024 5:11 PM TRESTLE MAINTERNANCE LABORER Shyam Rodriges MD LAB - BLOOD ORDERABLES Final Result [facility] [place] [facility] Lab [address] [facility] [address] [facility], Room [address] [place] [address], [facility] * Pap screen with HPV - [...] component of this testing was completed at [facility] 01/25/2022 2:47 PM CDT SPECIALTY LABS Brushing CERVIX UTERI STRUCTURE / Unknown Non-blood Collection / Unknown 01/21/2022 1:18 PM CDT 01/21/2022 1:46 PM CDT us Shyam DELGADO - ANTONIO ROCHA Final R esult SPECIALTY LABS [facility] 500 [facility], [address] [place] [address], [place] [phone] * HPV High Risk Types DNA Cervical (01/21/2022 1:18 PM CDT) Other HR HPV Negative Negative 01/27/2022 4:56 PM CDT [facility]ST[facility] HPV16 DNA Negative Negative 01/27/2022 4:56 PM CDT [facility] DIAGNOSTICS HPV18 DNA Negative Negative 01/27/2022 4:56 PM CDT MOLECULAR DIAGNOSTICS FINAL DIAGNOSIS This patient's sample is negative for HPV DNA. This test was developed and its performance characteristics determined by the [facility], Molecular Diagnostics Laboratory. It has not been [...] Final Result MOLECULAR DIAGNOSTICS Molecular Diagnostics 500 [facility], [address] [place] [address], [facility] [phone] * HIV Antigen Antibody Combo (05/29/2021 3:39 PM CDT) HIV Antigen Antibody Combo Nonreactive Nonreactive 05/30/2021 3:34 PM CDT [facility] Comment:HIV-1 p24 Ag & HIV-1 /HIV-2 Ab Not Detected Blood STRUCTURE OF RIGHT UPPER LIMB / Unknown Venipuncture / Unknown 05/29/2021 3:39 PM CDT 05/29/2021 3:40 PM CDT Shyam Rodriges MD LAB - BLOOD ORDERABLES Final Result [facility] [place] [facility] Specialty Core Lab [address] [facility], [address] [place] [address], [facility] [phone] from Last 3 Months or Most Recently Relevant to Health Maintenance [place] For more information, please contact: [phone] * Full Code (Latest Code Status on [...] patie nt/ legal decision maker Care Teams Housing Inspector Relationship Specialty Start Date End Date Shyam Rodriges MD [address] [place] [address] 748212 PCP - General 03/04/08 Shyam Rodriges MD [address] [place] [address] 250792 Assigned PCP 12/05/13 Arelis Vega PA-C [address] [place] [address] Physician Automatic Profile Sander Operator 07/02/24 Shyam Rodriges MD [address] [place] [address] Family Medicine 07/02/24 Loly Calderon PA-C [address] [place] [address] Physician Automatic Profile Sander Operator Gastroenterology 07/02/24 Galo Gill MD Assigned Heart and Vascular Provider 07/30/24 Robe Calero MD [address] [place], [place] 55[address] Assigned Dermatology Provider 10/28/24 Loly Calderon PA-C [address] [place], [place] [address] Assigned Gastroenterology Provider 10/28/24
--- OUTSIDE RECORDS SUMMARY | 2025-03-11 02:22 | XMS_ITS | Encounter Summary ---
Author Organization [facility] Address [address] [place] [address] Care Team Providers Care Almond Grinder Name Role Phone Corinna Rodriges MD Primary Care Provider Corinna Rodriges MD Unavailable [phone] Galo Ross MD Unavailable [phone] Sohail Olmstead MD Unavailable [phone] Galo Gill MD Unavailable Unavailab Arelis Carrasco PA-C Unavailable [phone] Corinna Rodriges MD Unavailable [phone] Loly Calderon PA-C Unavailable [phone] Galo Gill MD Unavailable Unavailab Robe Marshall MD Unavailable Robe Calero MD Unavailable Loly Calderon PA-C Unavailable [phone] Encounter Details Date Type Department Care Team (Late st Contact Info) Description 10/05/2019 MyC Medical Advice [address] [address] Rajan Cabrera, RN Social History Tobacco Use Types Packs/Day Years Used Date Smoking Tobacco: Never Smokeless Tobacco: Never Alcohol Use Standard Drinks/Week Comments Yes 0 (1 standard drink = 0.6 oz pur e alcohol) 0-1 drinks Q4M PHQ-2 Answer Date Recorded PHQ-2 Score 1 08/13/2019 Comments No Sex and Gender Information Value Date Recorded Sex Assigned at Female 08/08/2019 10:05 AM STANDPIPE TENDER Legal Sex Female 3:14 AM STANDPIPE TENDER Gender Identity Female 08/08/2019 10:05 AM STANDPIPE TENDER Sexual Orientation Straight 08/08/2019 10 :05 AM STANDPIPE TENDER 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 Not on karey e Not on file documented as of this encounter Plan of Treatment Upcoming Encounters Date Type Department Care Team (Late st Contact Info) Description 03/21/2025 12:15 PM CDT Virtual Visit [facility] [address] 4th [place] [phone] Loly Calderon PA-C [address] [place], [place] [address] 05/21/2025 12:00 PM CDT Virtual Visit [facility] [address] [place] [address] Corinna Rodriges MD [address] [place], [place] [address] Delmi Garcia [address] 210875 documented as of this encounter Visit Diagnoses Not on filedocumented in this encounter Additional Health Concerns Infection Onset Date Last Indicated Resolved Time Rule Out COVID-19 08/28/2021 08/28/2021 08/29/2021 5:48 PM STANDPIPE TENDER Rule Out COVID-19 09/30/2021 09/30/2021 09/30/2021 10:11 PM STANDPIPE TENDER Rule Out COVID-19 03/30/2024 03/30/2024 03/30/2024 7:56 PM CDT Assessment Noted Time PHQ-9 Depression Total Score: 2 08/13/19 20 9:28 AM STANDPIPE TENDER documented as of this encounter Care Teams Almond Grinder Relationship Specialty Start Date End Date Corinna Rodriges MD [address] [place] [address] PCP - General 03/04/08 Corinna Rodriges MD [address] [place] [address] Assigned PCP 12/05/13 Galo Ross MD [address] [place] [address] Assigned OBGYN Provider 08/30/21 Sohail Olmstead MD [address] [place] [address] Assigned Surgical Provider 01/22/23 07/29/24 Galo Gill MD [address] [place] [address] Cardiovascular Disease 04/19/24 12/19/24 Arelis Vega PA-C [address] [address] Physician Field Evidence Technician 07/02/24 Corinna Rodriges MD [address] [place] [address] Family Medicine 07/02/24 Loly Calderon PA-C [address] [place] [address] Physician Field Evidence Technician Gastroenterology 07/02/24 Galo Gill MD Assigned Heart and Vascular Provider 07/30/24 Robe Calero MD [address] [place] [address] Assigned Surgical Provider 09/30/24 10/27/24 Robe Calero MD [address] [place], [place] 2424[address] Assigned Dermatology Provider 10/28/24 Loly Calderon PA-C [address] [place], [place] 8[address] Assigned Gastroenterology Provider 10/28/24 documented as of this encounter
--- OUTSIDE RECORDS SUMMARY | 2025-03-11 02:22 | XMS_ITS | Encounter Summary ---
Author Organization [facility] Address [address] [place] [address]. [place] [address] Care Team Providers Care Catering Operations Manager Name Role Phone Corinna Rodriges MD Primary Care Provider Corinna Rodriges MD Unavailable [phone] Galo Gill MD Unavailable Unavailab Arelis Carrasco PA-C Unavailable [phone] Corinna Rodriges MD Unavailable [phone] Loly Calderon PA-C Unavailable [phone] Galo Gill MD Unavailable Unavailab Robe Marshall MD Unavailable Robe Calero MD Unavailable Loly Calderon PA-C Unavailable [phone] Encounter Details Date Type Department Care Team (Late st Contact Info) Description 10/09/2024 Formerly [facility] [address] [place] [address] [facility] Social History Tobacco Use Types Packs/Day Years [...] re latives? Twice a week 06/27/2024 Attends Pentecostalism Services Not on file 06/27 Active Member of Clubs or Organizations Not on f ile 06/27/2024 Attends Club or Organization Meetings Not on karey e 06/27/2024 Marital Status Not on file 06/27/2024 PHQ-2 Answer Date Recorded PHQ-2 Score 0 06/27/2024 [facility] - Occupational [...] exercise at this level? 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 Not on karey e Not on file documented as of this encounter Plan of Treatment Upcoming Encounters Date Type Department Care Team (Late st Contact Info) Description 03/21/2025 12:15 PM CDT Virtual Visit [facility] [address] [place] [address] Loly Calderon PA-C [address] [place], [place] [phone] 05/21/2025 12:00 PM CDT Virtual Visit [facility] [address] [place] [address] Corinna Rodriges MD 4[address] [place] [address] Delmi Garcia GC [address] [place] [address] [phone] documented as of this encounter Visit Diagnoses Not on filedocumented in this encounter Additional Health Concerns Assessment Noted Time PHQ-9 Depression Total Score: 1 06/27/20 24 9:36 AM CHUTE GREASER documented as of this encounter Care Teams Catering Operations Manager Relationship Specialty Start Date End Date Corinna Rodriges MD [address] [place] [address] PCP - General 03/04/08 Corinna Rodriges MD [address] [place] [address] 68517 Assigned PCP 12/05/13 Galo Gill MD [address] [place] [address] 38972 Cardiovascular Disease 04/19/24 12/19/24 Arelis Vega PA-C [address] [place] [address] 15705 Physician Policy Issue Clerk 07/02/24 Corinna Rodriges MD [address] [place] [address] 35206 Family Medicine 07/02/24 Loly Calderon PA-C [address] [place] [address] 7[address]21 Physician Policy Issue Clerk Gastroenterology 07/02/24 Galo Gill MD Assigned Heart and Vascular Provider 07/30/24 Robe Calero MD 500 [place] [address] Assigned Surgical Provider 09/30/24 10/27/24 Robe Calero MD 500 [place] [address] Assigned Dermatology Provider 10/28/24 Loly Calderon PA-C 500 [place], [place] 388395 Assigned Gastroenterology Provider 10/28/24 documented as of this encounter
--- OUTSIDE RECORDS SUMMARY | 2025-03-11 02:22 | XMS_ITS | Encounter Summary ---
Author Organization [facility] Address [address] [place] [address] Care Team Providers Care Embroidery Designer Name Role Phone Corinna Rodriges MD Primary Care Provider Corinna Rodriges MD Unavailable [phone] Galo Ross MD Unavailable [phone] Sohail Olmstead MD Unavailable [phone] Galo Gill MD Unavailable Unavailab Arelis Carrasco PA-C Unavailable [phone] Corinna Rodriges MD Unavailable [phone] Loly Calderon PA-C Unavailable [phone] Galo Gill MD Unavailable Unavailab Robe Marshall MD Unavailable Robe Calero MD Unavailable Loly Calderon PA-C Unavailable [phone] Encounter Details Date Type Department Care Team (Late st Contact Info) Description 11/06/2020 [facility] Medical Advice [address] [address] Suyapa Villafana CMA Social History Tobacco Use Types Packs/Day Years Used Date Smoking Tobacco: Never Smokeless Tobacco: Never Alcohol Use Standard Drinks/Week Comments Yes 0 (1 standard drink = 0.6 oz pur e alcohol) 0-1 drinks Q4M PHQ-2 Answer Date Recorded PHQ-2 Score 0 04/10/2020 Comments No Sex and Gender Information Value Date Recorded Sex Assigned at Female 08/08/2019 10:05 AM ALTERATION WORKER Legal Sex Female 3:14 AM ALTERATION WORKER Gender Identity Female 08/08/2019 10:05 AM ALTERATION WORKER Sexual Orientation Straight 08/08/2019 10 :05 AM ALTERATION WORKER 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 Not on karey e Not on file documented as of this encounter Plan of Treatment Upcoming Encounters Date Type Department Care Team (Late st Contact Info) Description 03/21/2025 12:15 PM CDT Virtual Visit [facility] [address] 4th [place] [phone] Loly Calderon PA-C 500 [place], [place] [phone] 05/21/2025 12:00 PM CDT Virtual Visit [facility] [address] [place] [address] Corinna Rodriges MD 4151 [place], [place] 820232 Delmi Garcia [address] [phone] documented as of this encounter Visit Diagnoses Not on filedocumented in this encounter Additional Health Concerns Infection Onset Date Last Indicated Resolved Time Rule Out COVID-19 08/28/2021 08/28/2021 08/29/2021 5:48 PM ALTERATION WORKER Rule Out COVID-19 09/30/2021 09/30/2021 09/30/2021 10:11 PM ALTERATION WORKER Rule Out COVID-19 03/30/2024 03/30/2024 03/30/2024 7:56 PM CDT Assessment Noted Time PHQ-9 Depression Total Score: 2 04/11/20 20 4:02 PM CDT documented as of this encounter Care Teams Embroidery Designer Relationship Specialty Start Date End Date Corinna Rodriges MD [address] [place] [address] PCP - General 03/04/08 Corinna Rodriges MD [address] [place] [address]755 Assigned PCP 12/05/13 Galo Ross MD [address] [place] [address] Assigned OBGYN Provider 08/30/21 Sohail Olmstead MD [address] [place] [address] Assigned Surgical Provider 01/22/23 07/29/24 Galo Gill MD [address] [place] [address] Cardiovascular Disease 04/19/24 12/19/24 Arelis Vega PA-C [address] [address] Physician Contractor General Building 07/02/24 Corinna Rodriges MD [address] [place] [address] Family Medicine 07/02/24 Loly Calderon PA-C [address] [place] [address] Physician Contractor General Building Gastroenterology 07/02/24 Galo Gill MD Assigned Heart and Vascular Provider 07/30/24 Robe Calero MD 500 [place] [address] Assigned Surgical Provider 09/30/24 10/27/24 Robe Calero MD 500 [place], [place] 633275 Assigned Dermatology Provider 10/28/24 Loly Calderon PA-C 500 [place], [place] 118075 Assigned Gastroenterology Provider 10/28/24 documented as of this encounter
--- OUTSIDE RECORDS SUMMARY | 2025-03-11 02:22 | XMS_ITS | Encounter Summary ---
Author Organization [facility] Address [address] [place] [address] Care Team Providers Care Die Sizer Name Role Phone Corinna Rodriges MD Primary Care Provider Corinna Rodriges MD Unavailable [phone] Corinna Rodriges MD Unavailable [phone] Galo Ross MD Unavailable [phone] Sohail Olmstead MD Unavailable [phone] Galo Gill MD Unavailable Unavailab Arelis Carrasco PA-C Unavailable [phone] Corinna Rodriges MD Unavailable [phone] Loly Calderon PA-C Unavailable [phone] Galo Gill MD Unavailable Unavailab Robe Marshall MD Unavailable Robe Calero MD Unavailable Loly Calderon PA-C Unavailable [phone] Encounter Details Date Type Department Care Team (Late st Contact Info) Description 08/17/2018 [facility] [address] [address] Mahi Russo, KESHAWN Social History Tobacco Use Types Packs/Day Years Used Date Smoking Tobacco: Never Smokeless Tobacco: Never Alcohol Use Standard Drinks/Week Comments Yes 0 (1 standard drink = 0.6 oz pur e alcohol) 0-1 drinks Q4M PHQ-2 Answer Date Recorded PHQ-2 Score 3 08/15/2018 Comments No Sex and Gender Information Value Date Recorded Sex Assigned at Female 08/08/2019 10:05 AM SIEVE MAKER Legal Sex Female 3:14 AM SIEVE MAKER Gender Identity Female 08/08/2019 10:05 AM SIEVE MAKER Sexual Orientation Straight 08/08/2019 10 :05 AM SIEVE MAKER 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 [address] [place] [phone] Loly Calderon PA-C [address] [place], [place] [phone] 05/21/2025 12:00 PM CDT Virtual Visit [facility] [address] [place] [phone] Corinna Rodriges MD 4[address] [place], [place] 741032 Delmi Garcia GC [address] [place] [phone] documented as of this encounter Visit Diagnoses Not on filedocumented in this encounter Additional Health Concerns Infection Onset Date Last Indicated Resolved Time Rule Out COVID-19 08/28/2021 08/28/2021 08/29/2021 5:48 PM SIEVE MAKER Rule Out COVID-19 09/30/2021 09/30/2021 09/30/2021 10:11 PM SIEVE MAKER Rule Out COVID-19 03/30/2024 03/30/2024 03/30/2024 7:56 PM CDT Assessment Noted Time PHQ-9 Depression Total Score: 6 07/17/20 18 2:20 PM SIEVE MAKER documented as of this encounter Care Teams Die Sizer Relationship Specialty Start Date End Date Corinna Rodriges MD [address] [place] [address] 174632 PCP - General 03/04/08 Corinna Rodriges MD [address] [place] [address] [id number] PCP - Assigned PCP 12/05/13 10/10/18 Corinna Rodriges MD [address] [place] [address] 499532 Assigned PCP 12/05/13 Galo Ross MD [address] 086734 Assigned OBGYN Provider 08/30/21 Sohail Olm[place] MD [address] [place] [address] Assigned Surgical Provider 01/22/23 07/29/24 Galo Gill MD [address] [place] [address] Cardiovascular Disease 04/19/24 12/19/24 Arelis Vega PA-C [address] [place] [address] Physician Ops Manager 07/02/24 [place] [address] [place] [address] Family Medicine 07/02/24 Loly Calderon PA-C [address] [place] [address] Physician Ops Manager Gastroenterology 07/02/24 Galo Gill MD Assigned Heart and Vascular Provider 07/30/24 Robe Calero MD 500 [place], [place] 413295 Assigned Surgical Provider 09/30/24 10/27/24 Robe Calero MD 500 [place] [address] Assigned Dermatology Provider 10/28/24 Loly Calderon PA-C [address] [place], [place] 0[address]655 Assigned Gastroenterology Provider 10/28/24 documented as of this encounter
--- OUTSIDE RECORDS SUMMARY | 2025-03-11 02:22 | XMS_ITS | Encounter Summary ---
Author Organization [facility] Address [address] [place] [address]. [place] [address] Care Team Providers Care Tag Press Operator Name Role Phone Corinna Rodriges MD Primary Care Provider Corinna Rodriges MD Unavailable Arelis Vega PA-C Unavailable [phone] Corinna Rodriges MD Unavailable [phone] Loly Calderon PA-C Unavailable [phone] Galo Gill MD Unavailable Unavailab Robe Marshall MD Unavailable Loly Calderon PA-C Unavailable [phone] Reason for Visit * Reason Onset Date Comments Refill Request 03/10/2025 Encounter Details Date Type Department Care Team (Late st Contact Info) Description 03/10/2025 My[facility] Refill [address] [address] Corinna Rodriges MD [address] [place] [address] Refill Request Social History Tobacco Use [...] re latives? Twice a week 06/27/2024 Attends Congregational Services Not on file 06/27 Active Member of Clubs or Organizations Not on f ile 06/27/2024 Attends Club or Organization Meetings Not on karey e 06/27/2024 Marital Status Not on file 06/27/2024 PHQ-2 Answer Date Recorded PHQ-2 Score 0 06/27/2024 [facility] - Occupational Stress [...] exercise at this level? 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 [employer] Not on file Not on karey e Not on file documented as of this encounter Plan of Treatment Upcoming Encounters Date Type Department Care Team (Late st Contact Info) Description 03/21/2025 12:15 PM CDT Virtual Visit [facility] [address] 4th [place] [address] Loly Calderon PA-C [address] [place], [place] [phone] 05/21/2025 12:00 PM CDT Virtual Visit [facility] [address] [place] [address] [place] [address] [place] [address] 284862 Delmi Garcia GC [address] [place] [address] [phone] documented as of this encounter Visit Diagnoses Diagnosis Controlled substance agreement signed-06/27/2024-ok for adderall XR 30mg #25 /month &Adderall xr 20mg #10/month Encounter for long-term (current) use of other medications Attention deficit hyperactivity disorder, 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/27/2024 documented in this encounter Additional Health Concerns Assessment Noted Time PHQ-9 Depression Total Score: 1 06/27/20 9:36 AM MANAGER CONSUMER INSIGHTS documented as of this encounter Care Teams Tag Press Operator Relationship Specialty Start Date End Date Corinna Rodriges MD [address] [place] [address] PCP - General 03/04/08 Corinna Rodriges MD [address] [place] [address] 001732 Assigned PCP 12/05/13 Arelis Vega PA-C [address] [place] [address] 079730 Physician Development And Planning Engineer 07/02/24 Corinna Rodriges MD [address] [place] [address] 33717 Family Medicine 07/02/24 Loly Calderon PA-C 500 [place], [place] 827825 Physician Development And Planning Engineer Gastroenterology 07/02/24 Galo Gill MD Assigned Heart and Vascular Provider 07/30/24 Robe Calero MD 500 [place], [place] 829685 Assigned Dermatology Provider 10/28/24 Loly Calderon PA-C 500 [place] [address] Assigned Gastroenterology Provider 10/28/24 documented as of this encounter
--- OUTSIDE RECORDS SUMMARY | 2025-03-11 02:22 | XMS_ITS | Encounter Summary ---
Author Organization [facility] Address [address] [place] [address]. [place] [address] Care Team Providers Care Car Retarder Operator Name Role Phone Corinna Rodriges MD Primary Care Provider Corinna Rodriges MD Unavailable [phone] Galo Gill MD Unavailable Unavailab Arelis Carrasco PA-C Unavailable [phone] Corinna Rodriges MD Unavailable [phone] Loly Calderon PA-C Unavailable [phone] Galo Gill MD Unavailable Unavailab Robe Marshall MD Unavailable Loly Calderon PA-C Unavailable [phone] Encounter Details Date Type Department Care Team (Late st Contact Info) Description 10/29/2024 [facility] [address] 4th [place] [address] Navarro Reynolds Social History Tobacco [...] re latives? Twice a week 06/27/2024 Attends Bahai Services Not on file 06/27 Active Member of Clubs or Organizations Not on f ile 06/27/2024 Attends Club or Organization Meetings Not on karey e 06/27/2024 Marital Status Not on file 06/27/2024 PHQ-2 Answer Date Recorded PHQ-2 Score 0 06/27/2024 [facility] - Occupational Stress Questionnaire Answer Date [...] exercise at this level? 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 Not on karey e Not on file documented as of this encounter Plan of Treatment Upcoming Encounters Date Type Department Care Team (Late st Contact Info) Description 03/21/2025 12:15 PM CDT Virtual Visit [facility] [address] [place] [address] Loly Calderon PA-C 500 [place], [place] [phone] 05/21/2025 12:00 PM CDT Virtual Visit [facility] [address] [place] [address] Corinna Rodriges MD [address] [place], [place] [phone] Delmi Garcia GC [address] [place] [phone] documented as of this encounter Visit Diagnoses Not on filedocumented in this encounter Additional Health Concerns Assessment Noted Time PHQ-9 Depression Total Score: 1 06/27/20 9:36 AM GEOSCIENTIST documented as of this encounter Care Teams Car Retarder Operator Relationship Specialty Start Date End Date Corinna Rodriges MD [address] [place] [address] PCP - General 03/04/08 Corinna Rodriges MD [address] [place] [address] 11682 Assigned PCP 12/05/13 Galo Gill MD [address] [place] [address] Cardiovascular Disease 04/19/24 12/19/24 Arelis Vega PA-C [address] [place] [address] Physician Chip Separator 07/02/24 Corinna Rodriges MD [address] [place] [address]23 Family Medicine 07/02/24 Loly Calderon PA-C [address] [place] [address] Physician Chip Separator Gastroenterology 07/02/24 Galo Gill MD Assigned Heart and Vascular Provider 07/30/24 Robe Calero MD 500 [place] [address] Assigned Dermatology Provider 10/28/24 Loly Calderon PA-C [address] [place] [address] Assigned Gastroenterology Provider 10/28/24 documented as of this encounter
--- OUTSIDE RECORDS SUMMARY | 2025-03-11 02:22 | XMS_ITS | Clinical Summary ---
Author Organization [facility] Address [address] [place] [address] Care Team Providers Care Event Security Officer Name Role Phone Corinna Rodriges MD Primary Care Provider [phone] Allergies Active Allergy Reactions Criticality Noted Date [...] patient's age to complete this topic Insurance [facility] Care Teams Event Security Officer Relationship Specialty Start Date End Date Corinna Rodriges MD PCP - General Family Practice 01/15/14
--- OUTSIDE RECORDS SUMMARY | 2025-03-11 02:22 | XMS_ITS | Encounter Summary ---
Author Organization [facility] Address [address] [place] [address]. [place] [address] Care Team Providers Care Information Assoc Name Role Phone Corinna Rodriges MD Primary Care Provider Corinna Rodriges MD Unavailable [phone] Galo Gill MD Unavailable Unavailab Arelis Carrasco PA-C Unavailable [phone] Corinna Rodriges MD Unavailable [phone] Loly Calderon PA-C Unavailable [phone] Galo Gill MD Unavailable Unavailab Robe Marshall MD Unavailable Loly Calderon PA-C Unavailable [phone] Encounter Details Date Type Department Care Team (Late st Contact Info) Description 11/08/2024 [facility] [address]th [place] [address] Aishwarya Eli, RN Social History [...] Answer Date Recorded PHQ-2 Score 0 06/27/2024 [facility] - Occupational Stress Questionnaire Answer Date [...] exercise at this level? 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 Not on karey e Not on file documented as of this encounter Plan of Treatment Upcoming Encounters Date Type Department Care Team (Late st Contact Info) Description 03/21/2025 12:15 PM CDT Virtual Visit [facility] [address] [place] [address] Loly Calderon PA-C [address] [place], [place] [phone] 05/21/2025 12:00 PM CDT Virtual Visit [facility] [address] [place] [address] Corinna Rodriges MD [address] [place], [place] [phone] Delmi Garcia GC [address] [place] [address] [phone] documented as of this encounter Visit Diagnoses Not on filedocumented in this encounter Additional Health Concerns Assessment Noted Time PHQ-9 Depression Total Score: 1 06/27/20 9:36 AM WALL TAPER documented as of this encounter Care Teams Information Assoc Relationship Specialty Start Date End Date Corinna Rodriges MD [address] [place] [address] PCP - General 03/04/08 Corinna Rodriges MD [address] [place] [address] Assigned PCP 12/05/13 Galo Gill MD [address] [place] [address]85 Cardiovascular Disease 04/19/24 12/19/24 Arelis Vega PA-C [address] [place] [address] Physician Margarine Maker 07/02/24 Corinna Rodriges MD [address] [place] [address] Family Medicine 07/02/24 Loly Calderon PA-C [address] [place] [address] Physician Margarine Maker Gastroenterology 07/02/24 Galo Gill MD Assigned Heart and Vascular Provider 07/30/24 Robe Calero MD 500 [place] [address] Assigned Dermatology Provider 10/28/24 Loly Calderon PA-C [address] [place] [address] Assigned Gastroenterology Provider 10/28/24 documented as of this encounter
--- OUTSIDE RECORDS SUMMARY | 2025-03-11 02:22 | XMS_ITS | Encounter Summary ---
Author Organization [facility] Address [address] [place] [address] Care Team Providers Care Gas Welding Equipment Mechanic Name Role Phone Corinna Rodriges MD Primary Care Provider Corinna Rodriges MD Unavailable [phone] Corinna Rodriges MD Unavailable [phone] Galo Ross MD Unavailable [phone] Sohail Olmstead MD Unavailable [phone] Galo Gill MD Unavailable Unavailab Arelis Carrasco PA-C Unavailable [phone] Corinna Rodriges MD Unavailable [phone] Loly Calderon PA-C Unavailable [phone] Galo Gill MD Unavailable Unavailab Robe Marshall MD Unavailable Robe Calero MD Unavailable Loly Calderon PA-C Unavailable [phone] Encounter Details Date Type Department Care Team (Late st Contact Info) Description 10/17/2014 [facility] Medical Advice [address] [address] Corinna Rodriges MD [address] [place] [address] Attention deficit disorder with hyperactivity(314.01 ) (Primary Dx) Social History Tobacco Use Types Packs/Day Years Used Date Smoking Tobacco: Never Smokeless Tobacco: Never Alcohol Use Standard Drinks/Week Comments Yes 0 (1 standard drink = 0.6 oz pure alcohol) Occasional wine or beer, no hard liquor Comments No Sex and Gender Information Value Date Recorded Sex Assigned at Female 08/08/2019 10:05 AM IN STORE MARKETER Legal Sex Female 3:14 AM IN STORE MARKETER Gender Identity Female 08/08/2019 10:05 AM IN STORE MARKETER Sexual Orientation Straight 08/08/2019 10 :05 AM IN STORE MARKETER Occupation Industry Job Start Date Job End Date [employer] - [place] Not on file Not on file Not on file documented as of this encounter Miscellaneous Notes * Telephone Encounter - Denice Patterson - 10/17/2014 1:04 PM CDT Walked RX Adderall (2) to front office specialist for car pick up driver. Informed pt. Denice Patterson TC * Telephone Encounter - Corinna Rodriges MD - 10/17/2014 12:59 PM CD[facility] * Telephone Encounter - Cyndy Hodge RN - 10/17/2014 11:25 AM CDT Routing refill request to provider for review/approval because: Drug not on the [facility] refill protocol Cyndy Hodge RN [place] Triage documented in this encounter Plan of Treatment Upcoming Encounters Date Type Department Care Team (Late st Contact Info) Description 03/21/2025 12:15 PM CDT Virtual Visit [facility] [address] 4th [place] [phone] Loly Calderon PA-C [address] [place] [address] [phone] 05/21/2025 12:00 PM CDT Virtual Visit [facility] [address] [phone] Corinna Rodriges MD [address] [place] [address] 244242 Delmi Garcia GC [address] [place] [address] 316295 documented as of this encounter Visit Diagnoses Diagnosis Attention deficit disorder with hyperactivity(314.01)- Primary Attention deficit disorder with hyperactivity documented in this encounter Additional Health Concerns Infection Onset Date Last Indicated Resolved Time Rule Out COVID-19 08/28/2021 08/28/2021 08/29/2021 5:48 PM IN STORE MARKETER Rule Out COVID-19 09/30/2021 09/30/2021 09/30/2021 10:11 PM IN STORE MARKETER Rule Out COVID-19 03/30/2024 03/30/2024 03/30/2024 7:56 PM CDT documented as of this encounter Care Teams Gas Welding Equipment Mechanic Relationship Specialty Start Date End Date Corinna Rodriges MD [address] [place] [address] PCP - General 03/04/08 Corinna Rodriges MD [address] [place] [address] PCP - Assigned PCP 12/05/13 10/10/18 Corinna Rodriges MD [address] [place] [address] 472102 Assigned PCP 12/05/13 Galo Ross MD [address] [address] Assigned OBGYN Provider 08/30/21 Sohail Olmstead MD [address] [place] [address] Assigned Surgical Provider 01/22/23 07/29/24 Galo Gill MD [address] [place] [address] Cardiovascular Disease 04/19/24 12/19/24 Arelis Vega PA-C [address] [place] [address] Physician Wildland Firefighter 07/02/24 Corinna Rodriges MD [address] [place] [address] 790882 Family Medicine 07/02/24 Loly Calderon PA-C 500 [place] [address] Physician Wildland Firefighter Gastroenterology 07/02/24 Galo Gill MD Assigned Heart and Vascular Provider 07/30/24 Robe Calero MD 500 [place] [address] Assigned Surgical Provider 09/30/24 10/27/24 Robe Calero MD 500 [place] [address] Assigned Dermatology Provider 10/28/24 Loly Calderon PA-C [address] [place], [place] [phone] Assigned Gastroenterology Provider 10/28/24 documented as of this encounter
--- OUTSIDE RECORDS SUMMARY | 2025-03-11 02:22 | XMS_ITS | Encounter Summary ---
Author Organization [facility] Address [address] [place] [address] Care Team Providers Care Cap Coverer Name Role Phone Corinna Rodriges MD Primary Care Provider Corinna Rodriges MD Unavailable [phone] Corinna Rodriges MD Unavailable [phone] Galo Ross MD Unavailable [phone] Sohail Olmstead MD Unavailable [phone] Galo Gill MD Unavailable Unavailab Arelis Carrasco PA-C Unavailable [phone] Corinna Rodriges MD Unavailable [phone] Loly Calderon PA-C Unavailable [phone] Galo Gill MD Unavailable Unavailab Robe Marshall MD Unavailable Robe Calero MD Unavailable Loly Calderon PA-C Unavailable [phone] Encounter Details Date Type Department Care Team (Late st Contact Info) Description 06/04/2010 [facility] [address] [place] [address] [facility] Social History Tobacco Use Types Packs/Day Years Used Date Smoking Tobacco: Never Alcohol Use Standard Drinks/Week Comments Yes 0 (1 standard drink = 0.6 oz pure alcohol) occasionally in college - every other week Comments No Sex and Gender Information Value Date Recorded Sex Assigned at Female 08/08/2019 10:05 AM GROUND SUPPORT EQUIPMENT FITTER Legal Sex Female 3:14 AM GROUND SUPPORT EQUIPMENT FITTER Gender Identity Female 08/08/2019 10:05 AM GROUND SUPPORT EQUIPMENT FITTER Sexual Orientation Straight 08/08/2019 10 :05 AM GROUND SUPPORT EQUIPMENT FITTER Occupation Industry Job Start Date Job End Date [employer] - mass/[place] Not on file Not on file Not on file documented as of this encounter Plan of Treatment Upcoming Encounters Date Type Department Care Team (Late st Contact Info) Description 03/21/2025 12:15 PM CDT Virtual Visit [facility] [address] [place] [phone] Loly Calderon PA-C [address] [place], [place] 143445 05/21/2025 12:00 PM CDT Virtual Visit [facility] [address] [place] [phone] [place] [address] [place] [address] 136082 Delmi Garcia [address] [phone] documented as of this encounter Visit Diagnoses Not on filedocumented in this encounter Additional Health Concerns Infection Onset Date Last Indicated Resolved Time Rule Out COVID-19 08/28/2021 08/28/2021 08/29/2021 5:48 PM GROUND SUPPORT EQUIPMENT FITTER Rule Out COVID-19 09/30/2021 09/30/2021 09/30/2021 10:11 PM GROUND SUPPORT EQUIPMENT FITTER Rule Out COVID-19 03/30/2024 03/30/2024 03/30/2024 7:56 PM CDT documented as of this encounter Care Teams Cap Coverer Relationship Specialty Start Date End Date Corinna Rodriges MD [address] [place] [address] PCP - General 03/04/08 Corinna Rodriges MD [address] [place] [address] PCP - Assigned PCP 12/05/13 10/10/18 Corinna Rodriges MD [address] [place] [address] 282352 Assigned PCP 12/05/13 Galo Ross MD [address] 964334 Assigned OBGYN Provider 08/30/21 Sohail Olmstead MD [address] [place] [address] Assigned Surgical Provider 01/22/23 07/29/24 Galo Gill MD [address] [place] [address] Cardiovascular Disease 04/19/24 12/19/24 Arelis Vega PA-C [address] [place] [address] Physician Travel Nurse 07/02/24 Corinna Rodriges MD [address] [place] [address] Family Medicine 07/02/24 Loly Calderon PA-C [address] [place] [address] Physician Travel Nurse Gastroenterology 07/02/24 Galo Gill MD Assigned Heart and Vascular Provider 07/30/24 Robe Calero MD 500 [place] [address] Assigned Surgical Provider 09/30/24 10/27/24 Robe Calero MD 500 [place] [address] Assigned Dermatology Provider 10/28/24 Loly Calderon PA-C [address] [place] [address] Assigned Gastroenterology Provider 10/28/24 documented as of this encounter
--- OUTSIDE RECORDS SUMMARY | 2025-03-11 02:22 | XMS_ITS | Encounter Summary ---
Author Organization [facility] Address [address] [place] [address]. [place] [address] Care Team Providers Care Flooring Installer Name Role Phone Corinna Rodriges MD Primary Care Provider Corinna Rodriges MD Unavailable [phone] Galo Gill MD Unavailable Unavailab Arelis Carrasco PA-C Unavailable [phone] Corinna Rodriges MD Unavailable [phone] Loly Calderon PA-C Unavailable [phone] Galo Gill MD Unavailable Unavailab Robe Marshall MD Unavailable Loly Calderon PA-C Unavailable [phone] Encounter Details Date Type Department Care Team (Late st Contact Info) Description 11/09/2024 [facility] [address] 4th [place] [address] Esperanza Nelson LPN Social History [...] re latives? Twice a week 06/27/2024 Attends [employer] Services Not on file 06/27 Active Member of Clubs or Organizations Not on f ile 06/27/2024 Attends Club or Organization Meetings Not on karey e 06/27/2024 Marital Status Not on file 06/27/2024 PHQ-2 Answer Date Recorded PHQ-2 Score 0 06/27/2024 [facility] - Occupational Stress Questionnaire Answer [...] exercise at this level? 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 Not on karey e Not on file documented as of this encounter Plan of Treatment Upcoming Encounters Date Type Department Care Team (Late st Contact Info) Description 03/21/2025 12:15 PM CDT Virtual Visit [facility] [address] [place] [address] Loly Calderon PA-C [address] [place], [place] [phone] 05/21/2025 12:00 PM CDT Virtual Visit [facility] [address] [place] [address] Corinna Rdoriges MD [address] [place], [place] [phone] Delmi Garcia GC [address] [place] [address] [phone] documented as of this encounter Visit Diagnoses Not on filedocumented in this encounter Additional Health Concerns Assessment Noted Time PHQ-9 Depression Total Score: 1 06/27/20 9:36 AM SLEEP TECHNOLOGIST documented as of this encounter Care Teams Flooring Installer Relationship Specialty Start Date End Date Corinna Rodriges MD [address] [place] [address] PCP - General 03/04/08 Corinna Rodriges MD [address] [place] [address] Assigned PCP 12/05/13 Galo Gill MD [address] [place] [address] Cardiovascular Disease 04/19/24 12/19/24 Arelis Vega PA-C [address] [place] [address] Physician Wind Turbine Technician 07/02/24 Corinna Rodriges MD [address] [place] [address] Family Medicine 07/02/24 Loly Calderon PA-C [address] [place] [address] Physician Wind Turbine Technician Gastroenterology 07/02/24 Galo Gill MD Assigned Heart and Vascular Provider 07/30/24 Robe Calero MD [address] [place] [address] Assigned Dermatology Provider 10/28/24 Loly Calderon PA-C [address] [place] [address] Assigned Gastroenterology Provider 10/28/24 documented as of this encounter
--- OUTSIDE RECORDS SUMMARY | 2025-03-11 02:22 | XMS_ITS | Encounter Summary ---
Author Organization [facility] Address [address] [place] [address]. [place] [address] Care Team Providers Care Medical Sonographer Name Role Phone Corinna Rdoriges MD Primary Care Provider Corinna Rodriges MD Unavailable [phone] Arelis Vega PA-C Unavailable [phone] Corinna Rodriges MD Unavailable [phone] Loly Calderon PA-C Unavailable [phone] Galo Gill MD Unavailable Unavailab Robe Marshall MD Unavailable Loly Calderon PA-C Unavailable [phone] Encounter Details Date Type Department Care [...] re latives? Twice a week 06/27/2024 Attends [employer] Services Not on file 06/27 Active Member of Clubs or Organizations Not on f ile 06/27/2024 Attends Club or Organization Meetings Not on karey e 06/27/2024 Marital Status Not on file 06/27/2024 PHQ-2 Answer Date Recorded PHQ-2 Score 0 06/27/2024 [facility] - Occupational Stress Questionnaire Answer [...] exercise at this level? 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 e Not on file documented as of this encounter Plan of Treatment Upcoming Encounters Date Type Department Care Team (Late st Contact Info) Description 03/21/2025 12:15 PM CDT Virtual Visit [facility] [address] [place] [address] Loly Calderon PA-C [address] [place] [address] 874435 05/21/2025 12:00 PM CDT Virtual Visit [facility] [address] [place] [phone] Corinna Rodriges MD [address] [place] [address] 435832 Delmi Garcia GC [address] [place] [address] [phone] documented as of this encounter Visit Diagnoses Not on filedocumented in this encounter Additional Health Concerns Assessment Noted Time PHQ-9 Depression Total Score: 1 06/27/20 24 9:36 AM INDEPENDENT LIVING INSTRUCTOR documented as of this encounter Care Teams Medical Sonographer Relationship Specialty Start Date End Date Corinna Rodriges MD [address] [place] [address] PCP - General 03/04/08 [place] [address] [place] [address] Assigned PCP 12/05/13 Arelis Vega PA-C [address] [place] [address] Physician Teller Supervisor 07/02/24 Corinna Rodriges MD [address] [place] [address] Family Medicine 07/02/24 Loly Calderon PA-C [address] [place] [address] Physician Teller Supervisor Gastroenterology 07/02/24 Galo Gill MD Assigned Heart and Vascular Provider 07/30/24 Robe Calero MD 500 [place] [address] Assigned Dermatology Provider 10/28/24 Loly Calderon PA-C [address] [place] [address] Assigned Gastroenterology Provider 10/28/24 documented as of this encounter
--- OUTSIDE RECORDS SUMMARY | 2025-03-11 02:22 | XMS_ITS | Encounter Summary ---
Author Organization [facility] Address [address] [place] [address] Care Team Providers Care Commercial Loan Closer Name Role Phone Corinna Rodriges MD Primary Care Provider Corinna Rodriges MD Unavailable [phone] Galo Ross MD Unavailable [phone] Sohail Olmstead MD Unavailable [phone] Galo Gill MD Unavailable Unavailab Arelis Carrasco PA-C Unavailable [phone] Corinna Rodriges MD Unavailable [phone] Loly Calderon PA-C Unavailable [phone] Galo Gill MD Unavailable Unavailab Robe Marshall MD Unavailable Robe Calero MD Unavailable Loly Calderon PA-C Unavailable [phone] Reason for Visit * Reason Onset Date Comments Ochart Communication 04/06/2022 Encounter Details Date Type Department Care Team (Late st Contact Info) Description 04/06/2022 [facility] [address] [address] [place] [address] [place] [address] [phone] MyChart Communication Social History Tobacco Use Types Packs/Day Years Used Date Smoking Tobacco: Never Smokeless Tobacco: Never Alcohol Use Standard Drinks/Week Comments Not Currently 0 (1 standard drink = 0.6 oz pur e alcohol) minimal alcohol use. PHQ-2 Answer Date Recorded PHQ-2 Score 0 01/21/2022 [place] Depression Scale Answer Date Recorded Last EPDS Total Score Not on file 12/06/2021 The thought of harming myself has occurred to me . 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 e Not on file documented as of this encounter Plan of Treatment Upcoming Encounters Date Type Department Care Team (Late st Contact Info) Description 03/21/2025 12:15 PM CDT Virtual Visit [facility] [address] [place] [phone] Loly Calderon PA-C [address] [place] [address] [phone] 05/21/2025 12:00 PM CDT Virtual Visit [facility] [address] [place] [phone] Corinna Rodriges MD [address] [place] [address] 313642 Delmi Garcia [address] [phone] documented as of this encounter Visit Diagnoses Not on filedocumented in this encounter Additional Health Concerns Infection Onset Date Last Indicated Resolved Time Rule Out COVID-19 03/30/2024 03/30/2024 03/30/2024 7:56 PM CDT Assessment Noted Time PHQ-9 Depression Total Score: 3 01/22/20 22 1:32 PM CDT documented as of this encounter Care Teams Commercial Loan Closer Relationship Specialty Start Date End Date Corinna Rodriges MD [address] [place] [address] 185062 PCP - General 03/04/08 Corinna Rodriges MD [address] [place] [address] [phone] Assigned PCP 12/05/13 Galo Ross MD [address] [place] [address] 313484 Assigned OBGYN Provider 08/30/21 Sohail Olmstead MD [address] [place] [address] Assigned Surgical Provider 01/22/23 07/29/24 Galo Gill MD [address] [place] [address] Cardiovascular Disease 04/19/24 12/19/24 Arelis Vega PA-C [address] [place] [address] Physician Linotype Operator 07/02/24 Corinna Rodriges MD [address] [place] [address]695 Family Medicine 07/02/24 Loly Calderon PA-C [address] [place] [address] Physician Linotype Operator Gastroenterology 07/02/24 Glao Gill MD Assigned Heart and Vascular Provider 07/30/24 Robe Calero MD [address] [place] [address] Assigned Surgical Provider 09/30/24 10/27/24 Robe Caelro MD [address] [place], [place] 547005 Assigned Dermatology Provider 10/28/24 Loly Calderon PA-C [address] [place] [address] Assigned Gastroenterology Provider 10/28/24 documented as of this encounter
--- OUTSIDE RECORDS SUMMARY | 2025-03-11 02:22 | XMS_ITS | Encounter Summary ---
Author Organization [facility] Address [address] [place] [address] Care Team Providers Care Director Informatics Name Role Phone Corinna Rodriges MD Primary Care Provider Corinna Rodriges MD Unavailable [phone] Galo Ross MD Unavailable [phone] Sohail Olmstead MD Unavailable [phone] Galo Gill MD Unavailable Unavailab Arelis Carrasco PA-C Unavailable [phone] Corinna Rodriges MD Unavailable [phone] Loly Calderon PA-C Unavailable [phone] Galo Gill MD Unavailable Unavailab Robe Marshall MD Unavailable Robe Calero MD Unavailable Loly Calderon PA-C Unavailable [phone] Reason for Visit * Reason Onset Date Comments Refill Request 08/07/2020 Encounter Details Date Type Department Care Team (Late st Contact Info) Description 08/07/2020 [facility] Refill [address] [address] Corinna Rodriges MD [address] [place] [address] Refill Request Social History Tobacco Use Types Packs/Day Years Used Date Smoking Tobacco: Never Smokeless Tobacco: Never Alcohol Use Standard Drinks/Week Comments Yes 0 (1 standard drink = 0.6 oz pur e alcohol) 0-1 drinks Q4M PHQ-2 Answer Date Recorded PHQ-2 Score 0 04/10/2020 Comments No Sex and Gender Information Value Date Recorded Sex Assigned at Female 08/08/2019 10:05 AM FRONT END SOFTWARE ENGINEER Legal Sex Female 3:14 AM FRONT END SOFTWARE ENGINEER Gender Identity Female 08/08/2019 10:05 AM FRONT END SOFTWARE ENGINEER Sexual Orientation Straight 08/08/2019 10 :05 AM FRONT END SOFTWARE ENGINEER Occupation Industry Job Start Date Job End Date 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 Analysis performed by [facility], [address] [place] [address] , Cannabinoids ([id number]) Date Value Ref Range Status 08/13/2019 Not [...] be used for medical purposes only. Order [id number] for confirmation or individual confirmation tests to [facility]. Benzodiazepines (Nordiazepam) Date Value Ref Range Status [...] be electronically transmitted to pharmacy by provider [email or web address] CUSTOMS BROKERAGE AGENT checked in past 3 months? No, route to RN Sarah Howard RN, BSN Alice Triage T END SOFTWARE ENGINEER documented in this encounter Plan of Treatment Upcoming Encounters Date Type Department Care Team (Late st Contact Info) Description 03/21/2025 12:15 PM CDT Virtual Visit [facility] [address] [place] [address] Loly Calderon PA-C [address] [place], [place] [phone] 05/21/2025 12:00 PM CDT Virtual Visit [facility] [address] [place] [phone] Corinna Rodriges MD [address] [place], [place] 367622 Delmi Garcia GC [address] [place] [address] [phone] documented as of this encounter Visit Diagnoses [...] Out COVID-19 08/28/2021 08/28/2021 08/29/2021 5:48 PM FRONT END SOFTWARE ENGINEER Rule Out COVID-19 09/30/2021 09/30/2021 09/30/2021 10:11 PM FRONT END SOFTWARE ENGINEER Rule Out COVID-19 03/30/2024 03/30/2024 03/30/2024 7:56 PM CDT Assessment Noted Time PHQ-9 Depression Total Score: 2 04/11/20 20 4:02 PM CDT documented as of this encounter Care Teams Director Informatics Relationship Specialty Start Date End Date Corinna Rodriges MD [address] [place] [address] PCP - General 03/04/08 Corinna Rodriges MD [address] [place] [address] Assigned PCP 12/05/13 Galo Ross MD 606 [facility] [address] [place], [place] 964434 Assigned OBGYN Provider 08/30/21 Sohail Olmstead MD [address] [place], [place] 164607 Assigned Surgical Provider 01/22/23 07/29/24 Galo Gill MD [address] [place] [address] Cardiovascular Disease 04/19/24 12/19/24 Arelis Vega PA-C [address] [address] Physician Clinical Partner 07/02/24 [place] [address] [place] [address] [phone] Family Medicine 07/02/24 Loly Calderon PA-C [address] [place], [place] 499125 Physician Clinical Partner Gastroenterology 07/02/24 Galo Gill MD Assigned Heart and Vascular Provider 07/30/24 Robe Calero MD [address] [place] [place], [place] 904875 Assigned Surgical Provider 09/30/24 10/27/24 Robe Calero MD [address] [place], [place] 569865 Assigned Dermatology Provider 10/28/24 Loly Calderon PA-C [address] [place], [place] 107565 Assigned Gastroenterology Provider 10/28/24 documented as of this encounter
--- OUTSIDE RECORDS SUMMARY | 2025-03-11 02:22 | XMS_ITS | Encounter Summary ---
Author Organization [facility] Address [address] [place] [address] Care Team Providers Care Bell Valet Name Role Phone Corinna Rodriges MD Primary Care Provider Corinna Rodriges MD Unavailable [phone] Corinna Rodriges MD Unavailable [phone] Galo Ross MD Unavailable [phone] Sohail Olmstead MD Unavailable [phone] Galo Gill MD Unavailable Unavailab Arelis Carrasco PA-C Unavailable [phone] Corinna Rodriges MD Unavailable [phone] Loly Calderon PA-C Unavailable [phone] Galo Gill MD Unavailable Unavailab Robe Marshall MD Unavailable Robe Calero MD Unavailable Loly Calderon PA-C Unavailable [phone] Encounter Details Date Type Department Care Team (Late st Contact Info) Description 10/05/[address] [address] Kan Evans Social History Tobacco Use Types Packs/Day Years Used Date Smoking Tobacco: Never Smokeless Tobacco: Never Alcohol Use Standard Drinks/Week Comments Yes 0 (1 standard drink = 0.6 oz pure alcohol) occasionally in college - every other week Comments No Sex and Gender Information Value Date Recorded Sex Assigned at Female 08/08/2019 10:05 AM SASH CLAMP OPERATOR Legal Sex Female 3:14 AM SASH CLAMP OPERATOR Gender Identity Female 08/08/2019 10:05 AM SASH CLAMP OPERATOR Sexual Orientation Straight 08/08/2019 10 :05 AM SASH CLAMP OPERATOR Occupation Industry Job Start Date Job End Date [employer] [facility] [employer] [employer]/[place] Not on file Not on file Not on file documented as of this encounter Plan of Treatment Upcoming Encounters Date Type Department Care Team (Late st Contact Info) Description 03/21/2025 12:15 PM CDT Virtual Visit [facility] [address] [place] [phone] Loly Calderon PA-C [address] [place], [place] [phone] 05/21/2025 12:00 PM CDT Virtual Visit [facility] [address] [place] [phone] Corinna Rodriges MD [address] [place], [place] [phone] Delmi Garcia [address] [phone] documented as of this encounter Visit Diagnoses Not on filedocumented in this encounter Additional Health Concerns Infection Onset Date Last Indicated Resolved Time Rule Out COVID-19 08/28/2021 08/28/2021 08/29/2021 5:48 PM SASH CLAMP OPERATOR Rule Out COVID-19 09/30/2021 09/30/2021 09/30/2021 10:11 PM SASH CLAMP OPERATOR Rule Out COVID-19 03/30/2024 03/30/2024 03/30/2024 7:56 PM CDT documented as of this encounter Care Teams Bell Valet Relationship Specialty Start Date End Date Corinna Rodriges MD [address] [place] [address] PCP - General 03/04/08 Corinna Rodriges MD [address] [place] [address] [id number] PCP - Assigned PCP 12/05/13 10/10/18 Corinna Rodriges MD [address] [place] [address] [id number] Assigned PCP 12/05/13 Galo Ross MD [address] [place] [address] Assigned OBGYN Provider 08/30/21 Sohail Olmstead MD [address] [place] [address] Assigned Surgical Provider 01/22/23 07/29/24 Galo Gill MD [address] [place] [address] Cardiovascular Disease 04/19/24 12/19/24 Arelis Vega PA-C [address] [place] [address] Physician Supervisor Pairing And Inspecting 07/02/24 Corinna Rodriges MD [address] [place] [address] Family Medicine 07/02/24 Loly Calderon PA-C [address] [place] [address] Physician Supervisor Pairing And Inspecting Gastroenterology 07/02/24 Galo Gill MD Assigned Heart and Vascular Provider 07/30/24 Robe Calero MD [address] [place], [place] 511495 Assigned Surgical Provider 09/30/24 10/27/24 Robe Calero MD [address] [place], [place] 517905 Assigned Dermatology Provider 10/28/24 Loly Calderon PA-C [address] [place], [place] 097[address] Assigned Gastroenterology Provider 10/28/24 documented as of this encounter
--- OUTSIDE RECORDS SUMMARY | 2025-03-11 02:22 | XMS_ITS | Encounter Summary ---
Author Organization [facility] Address [address] [place] [address] Care Team Providers Care Marine Biologist Name Role Phone Corinna Rodriges MD Primary Care Provider Corinna Rodriges MD Unavailable [phone] Corinna Rodriges MD Unavailable [phone] Galo Ross MD Unavailable [phone] Sohail Olmstead MD Unavailable [phone] Galo Gill MD Unavailable Unavailab Arelis Carrasco PA-C Unavailable [phone] Corinna Rodriges MD Unavailable [phone] Loly Calderon PA-C Unavailable [phone] Galo Gill MD Unavailable Unavailab Robe Marshall MD Unavailable Robe Calero MD Unavailable Loly Calderon PA-C Unavailable [phone] Encounter Details Date Type Department Care Team (Late st Contact Info) Description 08/18/2018 [facility] Medical Advice [address] [address] Keira Malone, RN Social History Tobacco Use Types Packs/Day Years Used Date Smoking Tobacco: Never Smokeless Tobacco: Never Alcohol Use Standard Drinks/Week Comments Yes 0 (1 standard drink = 0.6 oz pur e alcohol) 0-1 drinks Q4M PHQ-2 Answer Date Recorded PHQ-2 Score 3 08/15/2018 Comments No Sex and Gender Information Value Date Recorded Sex Assigned at Female 08/08/2019 10:05 AM MILL RECORDER Legal Sex Female 3:14 AM MILL RECORDER Gender Identity Female 08/08/2019 10:05 AM MILL RECORDER Sexual Orientation Straight 08/08/2019 10 :05 AM MILL RECORDER Occupation Industry Job Start Date Job End Date 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 [address] [place] [phone] Loly Calderon PA-C [address] [place], [place] [phone] 05/21/2025 12:00 PM CDT Virtual Visit [facility] [address] [place] [phone] Corinna Rodriges MD [address] [place], [place] 474342 Delmi Garcia GC [address] [place] [address] [phone] documented as of this encounter Visit Diagnoses Not on filedocumented in this encounter Additional Health Concerns Infection Onset Date Last Indicated Resolved Time Rule Out COVID-19 08/28/2021 08/28/2021 08/29/2021 5:48 PM MILL RECORDER Rule Out COVID-19 09/30/2021 09/30/2021 09/30/2021 10:11 PM MILL RECORDER Rule Out COVID-19 03/30/2024 03/30/2024 03/30/2024 7:56 PM CDT Assessment Noted Time PHQ-9 Depression Total Score: 6 07/17/20 18 2:20 PM MILL RECORDER documented as of this encounter Care Teams Marine Biologist Relationship Specialty Start Date End Date Corinna Rodriges MD [address] [place] [address] [id number] PCP - General 03/04/08 Corinna Rodriges MD [address] [place] [address] [phone] PCP - Assigned PCP 12/05/13 10/10/18 Corinna Rodriges MD [address] [place] [address] [id number] Assigned PCP 12/05/13 Galo Ross MD [address] 500804 Assigned OBGYN Provider 08/30/21 Sohail Olmstead MD [address] [place] [address] Assigned Surgical Provider 01/22/23 07/29/24 Galo Gill MD [address] [place] [address] Cardiovascular Disease 04/19/24 12/19/24 Arelis Vega PA-C [address] [place] [address] Physician Extender 07/02/24 [place] [address] [place] [address] Family Medicine 07/02/24 Loly Calderon PA-C [address] [place] [address] Physician Extender Gastroenterology 07/02/24 Galo Gill MD Assigned Heart and Vascular Provider 07/30/24 Robe Calero MD [address] [place], [place] 0[address] Assigned Surgical Provider 09/30/24 10/27/24 Robe Calero MD [address] [place] [address] Assigned Dermatology Provider 10/28/24 Loly Calderon PA-C [address] [place], [place] 543665 Assigned Gastroenterology Provider 10/28/24 documented as of this encounter
[2025-03-11 02:23] VITALS: TEMP 36.8
--- OUTSIDE RECORDS SUMMARY | 2025-03-11 02:23 | XMS_ITS | Encounter Summary ---
Author Organization [facility] Address [address] [place] [address] Care Team Providers Care Vacuum Frame Operator Name Role Phone Corinna Rodriges MD Primary Care Provider Corinna Rodriges MD Unavailable [phone] Sohail Olmstead MD Unavailable [phone] Galo Gill MD Unavailable Unavailab Arelis Carrasco PA-C Unavailable [phone] Corinna Rodriges MD Unavailable [phone] Loly Calderon PA-C Unavailable [phone] Galo Gill MD Unavailable Unavailab Robe Marshall MD Unavailable Robe Calero MD Unavailable Loly Calderon PA-C Unavailable [phone] Encounter Details Date Type Department Care Team (Late st Contact Info) Description 09/30/2023 [facility] [address] [phone] Corinna Rodriges MD [address] [place] [address] Social History Tobacco Use Types Packs/Day Years Used Date Smoking Tobacco: Never Smokeless Tobacco: Never Alcohol Use Standard Drinks/Week Comments Not Currently 0 (1 standard drink = 0.6 oz pur e alcohol) minimal alcohol use. 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 Not on karey e Not on file documented as of this encounter Plan of Treatment Upcoming Encounters Date Type Department Care Team (Late st Contact Info) Description 03/21/2025 12:15 PM CDT Virtual Visit [facility] [address] 4th [place] [phone] Loly Calderon PA-C [address] [place] [address]805 05/21/2025 12:00 PM CDT Virtual Visit [facility] [address] [place] [phone] Corinna Rodriges MD [address] [place] [address] 600952 Delmi Garcia, [address] 785255 documented as of this encounter Visit Diagnoses Not on filedocumented in this encounter Additional Health Concerns Infection Onset Date Last Indicated Resolved Time Rule Out COVID-19 03/30/2024 03/30/2024 03/30/2024 7:56 PM CDT Assessment Noted Time PHQ-9 Depression Total Score: 1 12/30/19 23 4:00 PM CDT documented as of this encounter Care Teams Vacuum Frame Operator Relationship Specialty Start Date End Date Corinna Rodriges MD [address] [place] [address] PCP - General 03/04/08 Corinna Rodriges MD [address] [place] [address] Assigned PCP 12/05/13 Sohail Olmstead MD [address] [place] [address] Assigned Surgical Provider 01/22/23 07/29/24 Galo Gill MD [address] [place] [address] Cardiovascular Disease 04/19/24 12/19/24 Arelis Vega PA-C [address] [address] Physician Golf Course Architect 07/02/24 Corinna Rodriges MD [address] [place] [address] Family Medicine 07/02/24 Loly Calderon PA-C [address] [place] [address] Physician Golf Course Architect Gastroenterology 07/02/24 Galo Gill MD Assigned Heart and Vascular Provider 07/30/24 Robe Calero MD [address] [place] [address] Assigned Surgical Provider 09/30/24 10/27/24 Robe Calero MD [address] [place], [place] 523275 Assigned Dermatology Provider 10/28/24 Loly Calderon PA-C [address] [place] [address] Assigned Gastroenterology Provider 10/28/24 documented as of this encounter
--- OUTSIDE RECORDS SUMMARY | 2025-03-11 02:23 | XMS_ITS | Encounter Summary ---
Author Organization [facility] Address [address] [place] [address] Care Team Providers Care Board Of Directors Name Role Phone Corinna Rodriges MD Primary Care Provider Corinna Rodriges MD Unavailable [phone] Sohail Olmstead MD Unavailable [phone] Galo Gill MD Unavailable Unavailab Arelis Carrasco PA-C Unavailable [phone] Corinna Rodriges MD Unavailable [phone] Loly Calderon PA-C Unavailable [phone] Galo Gill MD Unavailable Unavailab Robe Marshall MD Unavailable Robe Calero MD Unavailable Loly Calderon PA-C Unavailable [phone] Reason for Visit * Reason Onset Date Comments Refill Request 12/04/2023 Encounter Details Date Type Department Care Team (Late st Contact Info) Description 12/04/2023 My[facility] Refill [address] [phone] Corinna Rodriges MD [address] [place] [address] Refill Request Social History Tobacco Use Types Packs/Day Years Used Date Smoking Tobacco: Never Smokeless Tobacco: Never Alcohol Use Standard Drinks/Week Comments Not Currently 0 (1 standard drink = 0.6 oz pur e alcohol) minimal alcohol use. 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[employer] Not on file Not [...] Virtual Visit [facility] [address] 4th [place] [phone] Loly Calderon PA-C [address] [place] [address] 05/21/2025 12:00 PM CDT Virtual Visit [facility] [address] [place] [phone] Corinna Rodriges MD [address] [place] [address] Delmi Garcia, [address] [place], [place] [phone] documented as of this encounter Visit Diagnoses Diagnosis Attention deficit hyperactivity disorder, 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 documented in this encounter Additional Health Concerns Infection Onset Date Last Indicated Resolved Time Rule Out COVID-19 03/30/2024 03/30/2024 03/30/2024 7:56 PM CDT Assessment Noted Time PHQ-9 Depression Total Score: 1 12/30/19 4:00 PM CDT documented as of this encounter Care Teams Board Of Directors Relationship Specialty Start Date End Date Corinna Rodriges MD [address] [place] [address] [phone] PCP - General 03/04/08 Corinna Rodriges MD [address] [place] [address] [id number] Assigned PCP 12/05/13 Sohail Olmstead MD [address] [place] [address] Assigned Surgical Provider 01/22/23 07/29/24 Galo Gill MD [address] [place] [address] Cardiovascular Disease 04/19/24 12/19/24 Arelis Vega PA-C [address] [place] [address] Physician Legal Administrator 07/02/24 Corinna Rodriges MD [address] [place] [address] Family Medicine 07/02/24 Loly Calderon PA-C [address] [place] [address] Physician Legal Administrator Gastroenterology 07/02/24 Galo Gill MD Assigned Heart and Vascular Provider 07/30/24 Robe Calero MD [address] [place] [address] Assigned Surgical Provider 09/30/24 10/27/24 Robe Calero MD [address] [place] [address] Assigned Dermatology Provider 10/28/24 Loly Calderon PA-C [address] [place] [address] Assigned Gastroenterology Provider 10/28/24 documented as of this encounter
--- NOTE | 2025-03-11 05:47 | ED.GENADULT ---
HPI - General Adult General Chief complaint: Flank Pain Stated complaint: lower back pain, trouble urinating Time Seen by Provider: 03/11/25 01:52 Source: patient Mode of arrival: ambulatory Limitations: no limitations History of Present Illness HPI narrative: 31-year-old female presents to the emergency department for evaluation of intermittent suprapubic area abdominal pain radiating into the right flank area for the past 6 days, intermittent. Came to the emergency department with 4 hours of symptoms on Tuesday but thinks that she passed the stone in the ED bathroom and therefore left prior to being triaged. States that she was having intermittent symptoms again for the past 12 hours today but symptoms becoming more constant a couple of hours prior to presentation. No new trauma or injury. No dysuria, no hematuria. Does have some urinary urgency, no hesitancy. No fever. Was initially nauseated on Tuesday, none today. No vomiting. Has had kidney stones in the past, all passed without complication, none requiring any instrumentation or stent placement. Did not try any interventions prior to coming to the ED tonight. Unfortunately when she arrives she is 7th in line waiting to be seen and is quite busy. Toradol was given prior to evaluation and CT was ordered simply based on protocol prior to interview. It was 2 hours before I could get to her. She denies any major long-term health problems. She has ADHD and has been on Adderall since age 14. She has an allergy to minocycline. Denies any pelvic surgeries. Nonsmoker. ROS is notable for the abdominal symptoms only, otherwise denies times 12 systems. Related Data Home Medications ?Medication ?Instructions ?Recorded ?Confirmed dextroamphetamine-amphetamine .Route 03/04/25 Previous Rx's ?Medication ?Instructions ?Recorded tamsulosin 0.4 mg capsule (Flomax) 0.4 mg PO DAILY PRN Kidney stones 03/11/25 #14 caps Allergies Allergy/AdvReac Type Severity Reaction Status Date / Time minocycline AdvReac Verified 03/11/25 00:06 [facility] Social History Smoking Status: Never smoker How often do you have a drink containing alcohol: never AUDIT-C Alcohol total score: 0 Non-prescribed substance use: denies use Exam Const: Vital Signs, click to edit/add: Vital Signs - 24 hr 03/11/25 00:00 03/11/25 01:13 03/11/25 02:20 Temperature 96.3 F L 96.3 F L Pulse Rate [Pulse Oximeter] 51 L 56 L Respiratory Rate 16 16 Blood Pressure [Ri ght Upper Arm] 142/86 H 126/72 Pulse Oximetry 96 98 Oxygen Delivery Me thod Room Air Room Air 03/11/25 02:23 Temperature 98.2 F Pulse Rate [Pulse Oximeter] Respiratory Rate Blood Pressure [Ri ght Upper Arm] Pulse Oximetry Oxygen Delivery Me thod Documenting provider has reviewed patient's vital signs: yes Common normals: no apparent distress and alert General appearance: cooperative and comfortable Other: Comfortable by the time I saw her after Toradol. Was reportedly very uncomfortable in triage. HENMT: Common normals: moist oral mucous membranes and oropharynx normal Eye: Common normals: conjunctivae normal General eye: normal appearance of both eyes Conjunctiva: conjunctiva(e) normal Resp: Common normals: normal respiratory effort Effort & inspection: able to speak in complete sentences GI: Common normals: Normal to inspection, nondistended, normoactive bowel sounds present, soft to palpation, non-tender, no hepatosplenomegaly and no masses Palpation: soft and no hepatosplenomegaly Neuro: Common normals: moves all extremities Sensorium/orientation: alert Speech: speech normal Gait (neuro): normal gait Psych: Attitude: engaged Activity/motor behavior: appropriate eye contact Insight: insight good Judgement: judgment good Skin: Common normals: no rashes or lesions noted General skin exam: no rashes or lesions noted Course Course ED Course: 31-year-old female with suprapubic area pain radiating to the right flank with 6 days of intermittent abdominal pain, suddenly becoming worse. CT performed prior to my evaluation of patient due to significant acuity of other patients in ED. Pain improved on Toradol. We already had imaging results prior to making my differential diagnosis in this did show tiny stones in the distal right ureter and a 4 mm stone in the left UVJ area. This certainly does explain her symptoms. CT did not show any other major abnormality. There was a little bit of hydronephrosis noted on the right therefore I did get a point of care creatinine to ensure that her renal function is normal and this is normal at 0.8. Patient feeling much better after the Toradol. We discussed plan of care. The stone should pass without complication. We reviewed signs and symptoms that would warrant ED evaluation including signs of infection, sepsis, weakness, severe symptoms. Prescription given for Flomax, 1st dose given here in the ED. She is to take this once daily until she is confident the stone has passed, will likely be just in a few days. She can say the remainder for any future mild spells. Prescriptions for Toradol and Zofran given from [email or web address], use of these discussed. Okay to use Tylenol also. Push fluids, move frequently. She verbalizes understanding and agreement has no further questions. Vital Signs Vital signs: Initial Vital Signs Temperature 96.3 F L 03/11/25 00:00 Temperature Source Temporal Artery Scan 03/11/25 00:00 Pulse Rate 51 L 03/11/25 00:00 Respiratory Rate 16 03/11/25 00:00 Blood Pressure 142/86 H 03/11/25 00:00 Blood Pressure Mean 104 03/11/25 00:00 Pulse Oximetry 96 03/11/25 00:00 Oxygen Delivery Method Room Air 03/11/25 00:00 Vital Signs Temperature 96.3 F L 03/11/25 00:00 Pulse Rate 51 L 03/11/25 00:00 Respiratory Rate 16 03/11/25 00:00 Blood Pressure 142/86 H 03/11/25 00:00 Pulse Oximetry 96 03/11/25 00:00 Oxygen Delivery Method Room Air 03/11/25 00:00 Temperature 98.2 F 03/11/25 02:23 Pulse Rate 56 L 03/11/25 02:20 Respiratory Rate 16 03/11/25 02:20 Blood Pressure 126/72 03/11/25 02:20 Pulse Oximetry 98 03/11/25 02:20 Oxygen Delivery Method Room Air 03/11/25 02:20 Medications Administered Medications: Discontinued Medications Generic Name Dose Route Start Last Admin Trade Name Freq PRN Reason Stop Dose Admin Ketorolac Tromethamine 15 mg 03/11/25 01:09 03/11/25 01:13 Ketorolac 15 Mg/Ml Inj IVP 03/11/25 01:10 15 mg ONCE ONE Administration Tamsulosin HCl 0.4 mg 03/11/25 02:09 03/11/25 02:13 Tamsulosin Hcl 0.4 Mg Capsule PO 03/11/25 02:10 0.4 mg ONCE ONE Administration Medical Decision Making Lab Data Lab results reviewed: Yes I reviewed the patient's lab results Lab results narrative: Urinalysis without signs of secondary infection. Point of care creatinine reassuring Labs: Lab Results 03/11/25 03/11/25 Range/Units 00:10 01:15 Urine Color Yellow (Yellow) Urine Appearance Clear (Clear) Urine pH 6.5 (5.0-8.5) Ur Specific Pitcher <= 1.005 (1.000-1.030) Urine Protein Negative (Negative) Urine Glucose (UA) Negative (Negative) Urine Ketones Negative (Negative) Urine Blood 2+ A (Negative) Urine Nitrite Negative (Negative) Urine Bilirubin Negative (Negative) Urine Urobilinogen 0.2 (0.2-1.0) Ur Leukocyte Esterase Negative (Negative) Urine RBC 2-5 A (0-2) Urine WBC 0-2 (0-5) Ur Squamous Epith Cells Few (None-Few) Urine Bacteria None (None) Urine HCG, Qual Negative (Negative) POC Creatinine 0.8 (0.6-1.3) mg/dl Imaging Data CT scan - abdomen: Attestation: I have reviewed the pertinent imaging results. My impression: Left and right renal stones, nonobstructing Radiologist's impression: IMPRESSION: 1. Two adjacent 2 mm calcifications in the region of the right distal ureter, possibly representing ureteral calculi given mild right hydronephrosis. Pelvic phleboliths would be a differential consideration. 2. 4 mm left ureteropelvic junction calculus with mild left hydronephrosis. 3. Punctate left nonobstructive nephrolithiasis. Please note that all CT scans at this facility use dose modulation, iterative reconstruction, and/or weight-based dosing when appropriate to reduce radiation dose to as low as reasonably achievable. Dictated by Kian Evans MD @ 03/11/2025 12:53:48 AM Discharge Plan Discharge Clinical Impression: Calculus of distal left ureter Patient Disposition: Home, Self-Care Instructions: Ureteral Stones (ED) Additional Instructions: As we discussed, you interestingly have kidney stones on both sides. I do suspect the you did in fact pass a larger stone on the right, as there are signs that the ureter was more dilated on that side, indicating that it had recently been stretched and had some back pressure from the increased urinary blockage. There are 2 very small 2 mm stones remaining on that side that looked to be passing without complication. Likely the main stone broke apart and these are ?comet tails? that will pass without complication. Interestingly, you have a 4 mm stone on the left side right at the junction of the ureter and bladder. This is likely the stone causing you most symptoms tonight. Sometimes stones that are at this point can bring pain to the opposite side because they are so close to the middle and the nerves that control the middle can be more dominant from 1 side or the other. Nonetheless, a 4 mm stone should also passed without complication. Your given a dose of Toradol which is an anti-inflammatory pain medicine. I am glad this was helpful for you. I have given you more of these tablets to have up to every 6 hours as needed. You would be due for another dose at 7:00 a.m.. It is also okay to use Tylenol 1000 mg every 6 hours if the pain is still bothersome. I have also given you supply of Zofran also known as ondansetron for nausea and vomiting. Feel free to keep this on hand for future episodes if needed. I also recommend that we start some Flomax, also known as tamsulosin. This is a medication that can help the stone pass more easily by dilating the ureter open slightly and by reducing the spasm pain somewhat. This is 1 pill taken daily. You were already given a dose here in the emergency room so this would just be taken at bedtime for the next few nights to help the stone pass. Drink lots of fluids and move frequently as that will help the stone make that hairpin turn to get into the bladder and pass out of the body. Complications with stones the size are pretty rare but would include infection or full urinary obstruction. Infection would be home marked by high fevers, weakness, symptoms of systemic illness. Obstruction would be severe persistent lower abdominal pain or inability to empty the bladder. Both of those in areas would warrant ER evaluation. Activity Level: No Restrictions Discharge Diet: Regular Prescriptions: New tamsulosin [Flomax] 0.4 mg capsule 0.4 mg PO DAILY PRN (Reason: Kidney stones) Qty: 14 0RF No Action dextroamphetamine-amphetamine [Adderall] .Route Follow Up/Referrals: Provider,Not a Local [Primary Care Provider, Family Practice] Stand Alone Forms: [facility] Info Instructions
== END 2025-03-11 02:33 | disposition home or self-care (01) ==
LOC: ED 03-11 02:20
PROVIDERS: Emergency Provider Family Medicine
DX: N20.1 Calculus of ureter (principal); F90.9 Attention-deficit hyperactivity disorder, unspecified type; Z79.899 Other long term (current) drug therapy
CPT/HCPCS: 36415; 74176; 81001; 81025; 82565; 96374; 99284; A9270; J1885